=== PATIENT | female | born 1975 | race Caucasian/White ===

== ENCOUNTER 2023-12-26 13:35 | Emergency (ER) | payer OTHER, SELFPAY ==
[2023-12-26 13:41] VITALS: BP 113/49; PULSE 87; O2SAT 99; BMI 25.0
--- NOTE | 2023-12-26 13:46 | XR_ITS ---
The [address] [address] Patient Name: CONRAD GONZALEZ MRN: [id number] date: 1975 Sex: F Assigned Patient Location: ER Current Patient Location: ER Accession/Order Number: [id number] Exam Date: 12/26/2023 13:56 Report Date: 12/26/2023 14:12 At the request of: ALAN SANTANA Procedure: XR hand RT min 3V PROCEDURE: XR hand RT min 3V HISTORY: fall COMPARISON: None. FINDINGS: BONES:No fracture, acute abnormality, or significant arthropathy. SOFT TISSUES:No visible soft tissue swelling. EFFUSION:None visible. OTHER: Negative. XR/XR hand RT min 3V IMPRESSION: 1. No acute bone abnormality. Electronically authenticated by: VINCENT COPPOLA Date: 12/26/2023 14:12
--- NOTE | 2023-12-26 15:50 | ED_ITS ---
HPI HPI - Extremity Injury (Upper) General Chief Complaint: Extremity Injury, Upper Stated Complaint: UPPER EXTREMITY INJURY Time Seen by Provider: 12/26/23 15:23 Source: patient Mode of arrival: walk-in Limitations: no limitations History of Present Illness HPI narrative: 48-year-old female presents to the emergency department complaint of right hand pain. Patient states she injured her hand when she fell while carrying items on . States landed directly on the hand. States she felt a crack. Since then, has had pain that has been somewhat worsening. She has a wound to the hand, swelling, bruising. There is associated tenderness. Denies any other injury, motor or sensory changes, paresthesias. Patient is right-handed. Unsure of last tetanus shot. Quality:?Blunt trauma Severity:?Mild Timing:?As above, constant, worsening Context: Normal setting and activity? Modifying factors:?Pain worse with palpation, movement Associated symptoms: [] Related Data Previous Rx's ?Medication ?Instructions ?Recorded cephalexin 500 mg capsule 500 mg PO Q6H 10 days #40 caps 12/26/23 hydrocodone 5 mg-acetaminophen 325 1 tab PO Q8H PRN pain 3 days #7 12/26/23 mg tablet tabs Allergies Allergy/AdvReac Type Severity Reaction Status Date / Time amoxicillin AdvReac Unknown Verified 12/26/23 13:41 Penicillins AdvReac Unknown Verified 12/26/23 13:41 Opioid HPI Opioid Management Most Recent Pain and Opioid Data: No Data to Display Review of Systems ROS Narrative CONST: Denies activity change, weakness MS: +arthralgias, some leg.? Denies myalgias, gait problem SKIN: Denies color change, wound NEURO: Denies numbness, paresthesias, weakness Exam Narrative Exam Narrative: Vital signs noted Nurses notes reviewed CONST: Nontoxic, well appearing, well nourished, in no distress.? HENT: normocephalic, atraumatic. CV: 2+ palpable right radial pulse MS: Right hand: +tenderness, swelling, bruising, linear abrasion with some surrounding redness to the dorsum.? No tenderness to the fingers, wrist.? No crepitus, deformity, instability, warmth.? ROM full with flexion and extension.? Strength 5/5 NEURO: Sensory intact throughout and distal to the injury SKIN: + Abrasion to the dorsum of the right hand with some surrounding erythema. Intact, warm, dry.? PSYCHIATRIC: normal mood, affect Constitutional Vital Signs, click to edit/add: Last Vital Signs Pulse 87 12/26/23 13:41 Resp 16 12/26/23 13:41 BP 113/49 12/26/23 13:41 Pulse Ox 99 12/26/23 13:41 Course Vital Signs Vital signs: Vital Signs Pulse Rate 87 12/26/23 13:41 Respiratory Rate 16 12/26/23 13:41 Blood Pressure 113/49 12/26/23 13:41 Pulse Oximetry 99 12/26/23 13:41 Pulse Rate 87 12/26/23 13:41 Respiratory Rate 16 12/26/23 13:41 Blood Pressure 113/49 12/26/23 13:41 Pulse Oximetry 99 12/26/23 13:41 MDM - Extremity Injury (Upper) MDM Narrative Medical decision making narrative: This is a pleasant 48-year-old female presents to the emergency department with right hand injury. On arrival, afebrile, vital signs are stable. On exam, nontoxic, well-appearing patient in no distress. She has swelling, tenderness, bruising to the dorsum of her right hand. There is an abrasion with some mild erythema surrounding it in the middle of the swelling. Range of motion is full. MSPs otherwise intact. X-ray right hand imaging, per radiologist reveals no acute findings. Patient states that the pain has been worsening since original injury. This could cause a suspicion for wound infection developing. For this reason we will start her on antibiotics. She has been taking Tylenol at home without relief. We will give her prescription for limited supply of [place]. Bacitracin dressing, Jeffrey wrap placed to the hand. Patient's tetanus was updated Favor right hand contusion, wound infection Fracture, dislocation less likely based on imaging O[facility]RS reviewed Disposition ? The patient was discharged. Plan: Patient will be discharged to home. Condition at time of disposition: stable Prescription for limited supply of [place] and Keflex sent to her pharmacy. Advised to follow up with primary provider. Advised to return for any worsening and/or development of new, concerning signs or symptoms PLEASE NOTE: Portions of the medical record may have been produced using electronic psychiatry physician and may contain errors with respect to translation of words which may not have been identified prior to finalization of the chart. Medical Records Attestation: I reviewed the patient's medical records. Imaging Data Right hand x-ray: Radiologist's impression: ITS Impressions Hand X-Ray 12/26/23 13:46 IMPRESSION: 1. No acute bone abnormality. Electronically authenticated by: MAHENDRA COPPOLA Date: 12/26/2023 14:12 Discharge Plan Discharge Stand Alone Forms: Portal Instructions Chief Complaint: Extremity Injury, Upper Clinical Impression: Infected wound Contusion of hand, right Qualifiers: Encounter type: initial encounter Qualified Code(s): S60.221A - Contusion of right hand, initial encounter Patient Disposition: Home, Self-Care Time of Disposition Decision: 15:52 Condition: Good Mode of Transportation: Private Vehicle Prescriptions / Home Meds: New cephalexin 500 mg capsule 500 mg PO Q6H 10 Days Qty: 40 0RF hydrocodone-acetaminophen 5-325 mg tablet 1 tab PO Q8H PRN (Reason: pain) 3 Days Qty: 7 0RF Print Language: [place] Instructions: Wound Infection (ED), Contusion in Adults (ED), P.R.I.C.E. Treatment (ED) Referrals: Mahendra Monzon MD [Physician] - 1 week
[2023-12-26] MEDS: CEPHALEXIN 500 MG CAPSULE PO (16:44)
[2023-12-26] MEDS: ADACEL DIPH,PERTUSS(ACELL),TET VAC/PF 0.5 ML ADULT SYRINGE IM (16:44)
[2023-12-26] MEDS: BACITRACIN 0.9 GM PACKET 1 PACKET TOPICAL (16:48)
== END 2023-12-26 16:53 | disposition home or self-care (01) ==
PROVIDERS: Emergency Provider Emergency Medicine Emergency Medical Services
DX: S60.221A Contusion of right hand, initial encounter (principal); L08.9 Local infection of the skin and subcutaneous tissue, unspecified; W19.XXXA Unspecified fall, initial encounter; Z23 Encounter for immunization
CPT/HCPCS: 73130; 90471; 90715; 99284

== ENCOUNTER 2024-06-17 11:39 | Emergency (ER) | payer OTHER, SELFPAY ==
[2024-06-17 11:48] VITALS: BP 116/52; PULSE 67; TEMP 36.7; O2SAT 100; BMI 25.0
--- OUTSIDE RECORDS SUMMARY | 2024-06-17 11:52 | XMS_ITS | CCD ---
Author Organization [facility] Care Team Providers Care Network Operations Technician Name Role Phone SELF, SELF Unavailable Unavailable [facility] [place] [place] OTHER: Roxanna vailable Unavailable Edgar Jain Primary Care Provider Edgar Jain MD Primary Care Provider Edgar Jain MD Primary Care Provider [phone] KELLEN MONROY Admitting Unavailable KELLEN MONROY Attending Unavailable DR PRISCILA NONE LISTED Primary Care Unavaila KELLEN Mcdonald Consulting Unavailable DANIELITO KUO Consulting Unavailab Himanshu Easley Primary Care Physician [phone] Grecia Bullard Attending Unavailable Jamshid Andrade Attending Unavailable Rosalia OLMEDO Attending Unavailable Rosalia OLMEDO Attending Unavailable ELISA WREN Attending Unavailable PAWEL CABELLO Admitting Unavailable TYRA LUX Attending Unavailab ELISA Kaye Referring Unavailable DODIE AG Referring Unavailable JODI OWENS Referring Unavailable DI AMAYA Attending Unavailable JODI OWENS Referring Unavailable HENRI FUNK Attending Unavailable HENRI FUNK Referring Unavailable HENRI FUNK Admitting Unavailable CARMEN GARCIA Referring Unavailable DI AMAYA Attending Unavailable HENRI FUNK Attending Unavailable GINNYENHELISA BUCHANAN Referring Unavailable ELISA WREN Attending Unavailable Allergies Allergy Classification Reported Allergen(s) Allergy Type Date of Onset Reaction(s) Facility (6 sources) Amoxicillin; Translations: [amoxicillin] Drug Allergy 4 Hives, Urticaria (disorder) [facility], [place] (4 sources) Codeine; Translations: [CODEINE] Drug Allergy 1 Itching [place], [place] (3 sources) Penicillins; Translations: [PENICILLINS] Propensity to adverse reactions to drug 4 Hives [place], [place] (1 source) Penicillins Propensity to adverse reactions to drug 4 Hives [facility] Work Phone: (3 sources) Penicillin; Translations: [penicillin] Drug Allergy 3 Hives [facility] Repository (1 source) terbinafine; Translations: [TERBINAFINE] Drug Allergy 9 [facility] Repository Medications Current Medications Medication Drug Class(es) Dates Sig (Normalized) Sig (Original) buprenorphine 8 mg / naloxone 2 mg sublingual film (3 sources) Partial Opioid Agonist, Opioid Antagonist Start: 06-14-2014 SUBOXONE 8-2 MG FILM lidocaine hydrochloride 20 mg/ml mucous membrane topical solution (2 sources) Antiarrhythmic, Amide Local Anesthetic Start: 07-08-2022 lidocaine viscous hcl (XYLOCAINE) 2 % solution 15 mL Start: 07-08-2022 End: 07-08-2022 lidocaine PF 4 % injection 4 mL naloxone (NARCAN) 2 mg in sodium chloride 0.9 % 500 mL infusion (1 source) Start: 07-08-2022 naloxone (NARC AN) 2 mg in sodium chloride 0.9 % 500 mL infusion pantoprazole 40 mg delayed release oral tablet (3 sources) Proton Pump Inhibitor Start: 01-08-2015 take 1 tablet by mouth once daily pantoprazole (PROTONIX) 40 MG tablet Take 1 tablet by mouth daily To the patient: Please call to make an appointment. . Thank you. 30 tablet 1 01/08/2015 Active polyethylene glycol 3350 19163 mg powder for oral solution (3 sources) Osmotic Laxative take 17 g by mouth once daily polyethylene glycol (GLYCOLAX) powder Take 17 g by mouth daily. 0 Active Completed/Discontinued Medications Medication Drug Class(es) Dates Sig (Normalized) Sig (Original) iopamidol (ISOVUE-370) 76 % injection 80 mL (1 source) Start: 02-10-2020 End: 02-10-2020 iopamidol (ISOVUE-370) 76 % injection 80 mL 2 ml naloxone hydrochloride 1 mg/ml prefilled syringe (2 sources) Opioid Antagonist Start: 07-08-2022 End: 07-08-2022 naloxone (NARCAN) 2 MG/2ML injection Start: 07-08-2022 End: 07-08-2022 Naloxone HCl (NALOXONE OPIAT E OVERDOSE KIT) 1 each by Nasal route once for 1 dose 1 kit 0 07/08/2022 07/08/2022 Active 50 ml sodium chloride 9 mg/m l injection (1 source) Start: 07-08-2022 End: 07-08-2022 0.9 % sodium chloride bolus Problems Active Problems Problem Classification Problem Date Documented Da te Episodic/Chronic Abdominal pain (9 sources) Abdominal pain; Translations: [Unspecified abdominal pain] Onset: 04-06-2014 Resolved: 07-10-2014 07-10-2014 Episodic Anxiety disorders (6 sources) Anxiety; Translations: [Panic attack] Onset: 04-02-2014 04-06-2014 Chronic Delirium, dementia, and amnestic and other cognitive disorders (1 source) Postconcussion syndrome; Translations: [Postconcussional syndrome] Onset: 02-07-2023 Chronic Esophageal disorders (2 sources) Gastro-esophageal reflux disease without esophagitis; Translations: [Gastro-esophageal reflux disease without esophagitis] Onset: 02-29-2024 Chronic Gastroduodenal ulcer (except hemorrhage) (9 sources) Peptic ulcer with perforation; Translations: [Chronic or unspecified peptic ulcer, site unspecified, with perforation] Onset: 07-10-2014 07-10-2014 Chronic Gastrointestinal hemorrhage (1 source) Rectal hemorrhage; Translations: [Rectal bleeding] Episodic Other female genital disorders (4 sources) Abnormal uterine and vaginal bleeding, unspecified; Translations: [ABNORMAL UTERINE VAGINAL BLEED UNS] Onset: 12-06-2022 Chronic Poisoning by other medications and drugs (1 source) Overdose of opiate; Translations: [Poisoning by unspecified narcotics, accidental (unintentional), initial encounter] Episodic Skin and subcutaneous tissue infections (1 source) Cellulitis of left lower limb; Translations: [CELLULITIS OF LEFT LOWER LIMB] Onset: 12-07-2022 Episodic Skull and face fractures (1 source) Closed fracture of nasal bones; Translations: [Fracture of nasal bones, initial encounter for closed fracture] Onset: 02-07-2023 Episodic Substance-related disorders (3 sources) Opioid abuse; Translations: [Opioid abuse, uncomplicated] Onset: 04-06-2014 04-06-2014 Chronic Substance-related disorders (1 source) Opioid abuse; Translations: [Opioid use, unspecified, uncomplicated] Episodic Superficial injury; contusion (1 source) Contusion of left forearm; Translations: [Contusion of left forearm, initial encounter] Onset: 02-07-2023 Episodic Past or Other Problems Problem Classification Problem Date Documented Da te Episodic/Chronic Asthma (3 sources) Asthma; Translations: [Unspecified asthma, uncomplicated] Onset: 04-02-2014 Resolved: 04-02-2014 04-02-2014 Chronic Biliary tract disease (3 sources) Cholecystitis without calculus; Translations: [Cholecystitis, unspecified] Onset: 04-06-2014 04-06-2014 Episodic Deficiency and other anemia (3 sources) Anemia; Translations: [Anemia, unspecified] Onset: 04-07-2014 04-07-2014 Episodic Nonspecific chest pain (3 sources) Anterior chest wall pain; Translations: [Other chest pain] Onset: 04-02-2014 Resolved: 07-10-2014 07-10-2014 Episodic Other gastrointestinal disorders (2 sources) Diarrhea, unspecified; Translations: [Diarrhea, unspecified] Onset: 04-30-2023 Episodic Other lower respiratory disease (3 sources) Dyspnea; Translations: [Dyspnea, unspecified] Onset: 04-02-2014 Resolved: 07-10-2014 07-10-2014 Episodic Other upper respiratory infections (4 sources) Other acute sinusitis; Translations: [Acute upper respiratory infection, unspecified] Onset: 03-23-2023 Episodic Urinary tract infections (4 sources) Urinary tract infection, site not specified; Translations: [Acute cystitis without hematuria] Onset: 04-30-2023 Episodic Results Test Name Value Interpretation Reference Range Facility HISTOLOGY - TISSUE EXAMon LAB AP ASR DISCLAIMER The interpretation of this case included the use of immunohistochemistry or special stains. These tests have not been cleared or approved by the U.S. Food and Drug Administration. The FDA has determined that such clearance or approval is not necessary. These tests are used for clinical purposes and should not be regarded as investigational or for research. This laboratory is certified to perform high complexity testing under the Clinical Laboratory Improvement Amendments of 1998. [facility] Comment on above: Performed By: #### L [id number] ####[facility] [place] [address] LAB AP CASE REPORT Normal [facility] Comment on above: Result Comment: Surg ical Pathology Case: [id number] Authorizing Provider: Henri Funk MD Collected: 02/29/2024 1235 Ordering Location: [facility] Received: 02/29/2024 1324 [facility] Pathologist: Roberto Bradford MD Specimen: Gastric, Gastric bx r/o H-Pylori Performed By: #### L [id number] ####[facility] ([facility])[address] [place] [address] LAB AP CLINICAL INFORMATION Order Diagnoses [facility] Comment on above: Result Comment: Z01. 812 - Encounter for pre-operative laboratory testing [ICD-10-CM] K26.5 - Perforated duodenal ulcer (CMS/HCC) [ICD-10-CM] K27.9 - Peptic ulcer [ICD-10-CM] Performed By: #### L [id number] ####[facility] ([facility])[address] [place] [address] LAB AP GROSS DESCRIPTION A. Gastric. [facility] Comment on above: Result Comment: Rece ived in formalin labeled Conrad Gonzalez gastric biopsy rule out H. pylori are 3 pink-rodriguez soft tissue fragments measuring 0.5 x 0.5 x 0.2 cm in aggregate. The specimen is submitted in toto 1 cassette. Carin Voss M.D., PGY-1 Performed By: #### L [id number] ####[facility] ([facility] [place] [address] LAB AP MICROSCOPIC DESCRIPTION Microscopic examination performed. [facility] Comment on above: Performed By: #### L [id number] ####[facility] ([facility])[address] [place] [address] LAB AP REPORT FINAL DIAGNOSIS NARRATIVE [facility] Comment on above: Result Comment: Stom ach, biopsy: Gastric mucosa with mild chronic inflammation without activity. No Helicobacter pylori identified, immunohistochemical stain with controls. No intestinal metaplasia, dysplasia or malignancy identified. Performed By: #### L [id number] ####[facility] ([facility])[address] [place] [address] HPon 02-29-2024 HP H&P reviewed. The patient was examined and there are no changes to the H&P. Normal [facility] NURSNOTEon 02-29-2024 NURSNOTE Follow up at [facility] with Gricelda Anna CNP, for biopsy results in 2-4 weeks. *Need to have a Gastric Emptying Study. May resume a Regular Diet [see handout for 'Food Choices for Reflux Disease']. May resume home medications. Normal [facility] NURSNOTE EGD Findings: Inlet Patch [facility] POCT GLUCOSE METER UNSOLICIT ED RESULTSon 02-29-2024 Glucose [Mass/Vol] 98 mg/dL Normal 70-105 [facility] Comment on above: Order Comment: Waive d Testing in the ED is performed under the ED CLIA certificate #[id number]. Result Comment: acle ment Performed By: #### L [id number] ####[facility] ([facility])[address] [place] [address] Prep for Procedureon 024 Prep for Procedure [id number] Joi Gonzalez 1975 F Date Provider Department Center 02/24/2024 HENRI JARAMILLO [facility] GISC GEORGEI No family history on file Normal [facility] Follow-Upon 02-20-2024 Follow-Up [id number] Joi Gonzalez 1975 F Date Provider Department Center 02/20/2024 HENRI JARAMILLO [facility] No family history on file Level of Service:41790 MD OFFICE/OUTPATIENT ESTABLISHED MOD MDM 30 MIN (GC) Reason for Visit and Comments: Hospital Follow-up [832] Gastroparesis [580] - Dysmotility Normal [facility] HPon 02-20-2024 HP -- Attestation signed by Henri Funk MD at 02/20/2024 1:45 PM GC: I saw this patient. I personally performed the critical/navarro portions that determines the level of service. I was directly involved in the management and treatment plan of the patient. I reviewed fellow Keeley Byers 's note and agree with the documentation [facility] Gastroenterology Follow-Up Patient Visit CHIEF COMPLAINT Chief Complaint Patient presents with Hospital Follow-up Gastroparesis Dysmotility HISTORY OF PRESENT ILLNESS: A 49-year-old female with a medical history of lupus and multiple abdominal surgeries presented with complaints of abdominal pain. She recently visited the ER at [facility] due to ongoing symptoms of vomiting, diarrhea, and blood in her stool, which have been present for two weeks. She expressed concern that her symptoms might be due to a previous perforated ulcer, as the pain feels similar. She is currently taking Protonix twice a day and describes the abdominal pain as a burning sensation. She also recently tested positive for COVID-19 and reportedthat the blood in her stool is occasionally bright red but sometimes dark. Her surgical history includes treatment for a perforated peptic ulcer witha Jaleel patch, followed by Billroth II and Claudia-en-Y procedures. Today, she complained of worsening acid reflux, which exacerbates her COVID-related sore throat, along with abdominal pain and intermittent episodes of melena and bright red blood per rectum. We discussed the necessity of scheduling an EGD as soon as possible to evaluate her symptoms further. She was advised to seek emergency care if symptoms persist and to start taking omeprazole 20 mg twice daily, in addition to continuing sucralfate. The EGD order will be placed, and we will follow up with the patient after the procedure. PREVIOUS LABS/IMAGING/ENDOSCOPY : Colonoscopy was performed which revealed: Normal distal terminal ileum Diminutive ascending colon polyp removed using a cold snare No endoscopic evidence of colitis. Random biopsies obtained to rule out microscopic colitis. EGD 05/02/2023: The gastroscope was inserted into the mouth and advanced under direct vision to second portion of the duodenum. A careful inspection was made as the gastroscope was withdrawn, including a retroflexed view of the proximal stomach; findings and interventions are described below. Appropriate photodocumentation was obtained. CT abdomen pelvis with out contrast 05/01/2023: *No acute abdominopelvic process. *Eccentric filling defect in the distal portal vein which extends distally into the superior mesenteric vein, morphology suggestive of chronic venous thrombus versus mixing of noncontrast blood with contrast filled in portal vein. EGD 2018 with mild ulceration and narrowing at the gastrojejunal anastomosis S/P 15 mm balloon dilation with balloon. 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 SOCIAL HISTORY: Social History Tobacco Use Smoking status: Never Smokeless tobacco: Never Vaping Use Vaping Use: Never used Substance Use Topics Alcohol use: Never Drug use: Never ALLERGIES: Amoxicillin, Codeine, Terbinafine, and Penicillins Current Medications: Current Outpatient Medications: albuterol 90 mcg/actuation inhaler, , Disp: , Rfl: clonazePAM (KlonoPIN) 1 mg tablet, Take 1 mg by mouth in the morning, at noon, and at bedtime., Disp: , Rfl: etonogestrel-eluting contraceptive (Nexplanon) 68 mg contraceptive implant, Inject 68 mg under the skin., Disp: , Rfl: folic acid (Folvite) 1 mg tablet, , Disp: , Rfl: HYDROcodone-acetaminop hen (Hoquiam) 5-325 mg tablet, , Disp: , Rfl: hydroxychloroquine (Plaquenil) 200 mg tablet, Take 200 mg (more content not included)... Normal [facility] BASIC METABOLIC PANELon 01-22 Anion gap [Moles/Vol] 9 mmol/L Normal 7-20 [facility] Comment on above: Performed By: #### L [id number] #### [facility] ([facility]) [address] [place] [address] Calcium [Mass/Vol] 9.0 mg/dL Normal 8.6-10.3 [facility] Comment on above: Performed By: #### L [id number] #### [facility] ([facility]) [address] [place] [address] Chloride [Moles/Vol] 107 mmol/L Normal 98-107 [facility] Comment on above: Performed By: #### L [id number] #### [facility] ([facility]) [address] [place] [address] CO2 [Moles/Vol] 26 mmol/L Normal 21-31 [facility] Comment on above: Performed By: #### L [id number] #### [facility] ([facility]) [address] [place] [address] Creatinine [Mass/Vol] 1.30 mg/dL High 0.60-1.20 [facility] Comment on above: Performed By: #### L [id number] #### [facility] ([facility]) [address] [place] [address] GLOMERULAR FILTRATION RATE ML/MIN/1.73 SQ M.PREDICTED 51.0 mL/min/1.73m*2 Low >60.0 [facility] Comment on above: Result Comment: The [facility]???s estimated glomerular filtration rate (eGFR) will no longer include consideration of race in its calculation. The National Kidney Foundation???s eGFR Task Force developed new recommendations for the estimation of the glomerular filtration rate in the [place] They recommend immediate implementation of the new equation refit without the race variable in all laboratories because the calculation does not include race. In addition to not including race in the calculation and reporting, it included diversity in its development, and has acceptable performance characteristics and potential consequences that do not disproportionately affect any one group of individuals. Performed By: #### L [id number] #### [facility] ([facility]) [address] [place] [address] Glucose [Mass/Vol] 82 mg/dL Normal 70-100 [facility] Comment on above: Performed By: #### L [id number] #### [facility] ([facility]) [address] [place] [address] Potassium [Moles/Vol] 3.4 mmol/L Low 3.5-5.1 [facility] Comment on above: Performed By: #### L [id number] #### [facility] ([facility]) [address] [place] [address] Sodium [Moles/Vol] 139 mmol/L Normal 136-145 [facility] Comment on above: Performed By: #### L [id number] #### [facility]) [address] [place] [address] Urea nitrogen [Mass/Vol] 11 mg/dL Normal 7-25 [facility] Comment on above: Performed By: #### L [id number] #### [facility] [address] [place] [address] UREA NITROGEN/CREATININE (MASS RATIO) IN SER/PLAS 8.5 Normal [facility] Comment on above: Performed By: #### L [id number] #### [facility] [address] [place] [address] CBC WITH AUTO DIFFERENTIALon 02-09-2024 Basophils (Bld) [#/Vol] 0.05 10*3/uL Normal 0.00-0.20 [facility] Comment on above: Performed By: #### L [id number] ####[facility] ([facility])[address] [place] [address] Basophils/100 WBC (Bld) 1.0 % Normal 0.0-1.0 [facility] Comment on above: Performed By: #### L [id number] ####[facility] ([facility])[address] [place] [address] Eosinophils (Bld) [#/Vol] 0.07 10*3/uL Normal 0.00-0.50 [facility] Comment on above: Performed By: #### L [id number] ####[facility] [place] [address] Eosinophils/100 WBC (Bld) 1.4 % Normal 0.0-6.0 [facility] Comment on above: Performed By: #### L [id number] ####[facility] [place] [address] Erythrocyte distribution width (RBC) [Ratio] 13.6 % Normal 11.5-15.0 [facility] Comment on above: Performed By: #### L [id number] ####[facility] ([facility] [place] [address] ERYTHROCYTE MEAN CORPUSCULAR HEMOGLOBIN CONCENTRATION (G/DL) BY AUTOMATED 32.3 g/dL Normal 32.0-35.0 [facility] Comment on above: Performed By: #### L [id number] ####[facility] ([facility])[address] [place] [address] Hematocrit (Bld) [Volume fraction] 39.0 % Normal 36.0-48.0 [facility] Comment on above: Performed By: #### L [id number] ####[facility] ([facility])[address] [place] [address] Hemoglobin (Bld) [Mass/Vol] 12.6 g/dL Normal 12.0-15.0 [facility] Comment on above: Performed By: #### L [id number] ####[facility] ([facility])[address] [place] [address] Immature granulocytes (Bld) [#/Vol] 0.02 10*3/uL Normal 0.00-0.20 [facility] Comment on above: Performed By: #### L [id number] ####[facility] ([facility])[address] [place] [address] Immature granulocytes/100 WBC (Bld) 0.4 % Normal 0.0-1.0 [facility] Comment on above: Performed By: #### L [id number] ####[facility] [place] [address] Lymphocytes (Bld) [#/Vol] 1.28 10*3/uL Normal 1.20-4.00 [facility] Comment on above: Performed By: #### L [id number] ####[facility] ([facility])[address] [place] [address] Lymphocytes/100 WBC (Bld) 24.9 % Normal 20.0-45.0 [facility] Comment on above: Performed By: #### L [id number] ####[facility] ([facility])[address] [place] [address] MCH (RBC) [Entitic mass] 27.6 pg Normal 27.0-33.0 [facility] Comment on above: Performed By: #### L [id number] ####[facility] ([facility])[address] [place] [address] MCV (RBC) [Entitic vol] 85.3 fL Normal 82.0-98.0 [facility] Comment on above: Performed By: #### L [id number] ####[facility] ([facility])[address] [place] [address] Monocytes (Bld) [#/Vol] 0.45 10*3/uL Normal 0.10-1.00 [facility] Comment on above: Performed By: #### L [id number] ####[facility] ([facility])[address] [place] [address] Monocytes/100 WBC (Bld) 8.7 % Normal 5.0-12.0 [facility] Comment on above: Performed By: #### L [id number] ####[facility] ([facility])[address] [place] [address] Neutrophils (Bld) [#/Vol] 3.28 10*3/uL Normal 1.60-7.60 [facility] Comment on above: Performed By: #### L [id number] ####[facility] ([facility])[address] [place] [address] Neutrophils/100 WBC (Bld) 63.6 % Normal 40.0-72.0 [facility] Comment on above: Performed By: #### L [id number] ####[facility] ([facility])[address] [place] [address] NRBC (PER 100 WBCS) BY AUTOMATED COUNT 0.0 % Normal 0 [facility] Comment on above: Performed By: #### L [id number] ####[facility] ([facility])[address] [place] [address] PLATELETS (10*3/UL) IN BLOOD AUTOMATED COUNT 321 10*3/uL Normal 150-400 [facility] Comment on above: Performed By: #### L [id number] ####[facility] ([facility])[address] [place] [address] RBC (Bld) [#/Vol] 4.57 10*6/uL Normal 3.80-5.00 [facility] Comment on above: Performed By: #### L [id number] ####[facility] ([facility])[address] [place] [address] WBC (Bld) [#/Vol] 5.15 10*3/uL Normal 4.00-10.60 [facility] Comment on above: Performed By: #### L [id number] ####[facility] ([facility])[address] [place] [address] CT ABDOMEN PELVIS W IV CONTR Shanda 02-09-2024 CT ABDOMEN PELVIS W IV CONTRAST STUDY: ABDOMEN AND PELVIS CT WITH CONTRAST CLINICAL HISTORY: Acute abdominal pain nausea and vomiting. r/o bowel perforation. COMPARISON: 05/02/2023 TECHNIQUE: CT abdomen and pelvis was performed utilizing 5 mm axial reconstructions following the uneventful administration of 100 cc Omnipaque 300 nonionic intravenous contrast. Coronal and sagittal reformatted images as well as delayed excretory phase images were obtained and reviewed. Automated exposure control was utilized. FINDINGS: Abdomen: No pleural or pericardial effusion at the lung bases. No lower lung consolidation. The liver, adrenal glands, pancreas appear unremarkable. The gallbladder is absent. Mild prominence of the common bile is most likely with the postcholecystectomy status. No enlarged mesenteric or retroperitoneal lymph nodes. Small bowel is nondilated. No renal collecting system dilatation. Pelvis: No free pelvic fluid. No enlarged pelvic lymph nodes. Uterus is present. Generative bladder is grossly unremarkable. Small right ovarian cystic lesion measuring 2.5 cm requires no additional follow-up imaging in a reproductive age female. Degenerative changes of the thoracolumbar spine. No vertebral body height loss. IMPRESSION: 1. No definitive acute abdominal or pelvic process. All CT scans at this facility use dose modulation, iterative reconstruction, and/or weight based dosing when appropriate to reduce radiation dose to as low as reasonably achievable. Electronically signed: Edgar Butler. Normal [facility] EDNURSon 02-09-2024 EDNURS Pt ambulates to [facility] with slow, steady gait. Presents anxious, pale and ill appearing states having an ulcer disorder requiring multiple surgical repairs, including being sent to [facility] for a jaleel patch (pt lived in [place] at the time). Pt states not having a duodenum and that her stomach is on the other side. Pt thinks she probably has another ulcer as she is also having bright red blood in her stool. PMH also includes Lupus and recently tested positive for Covid. Covid Positive in triage. Normal [facility] EDPROVon 02-09-2024 EDPROV [facility] [id number] EMERGENCY DEPARTMENT ENCOUNTER CHIEF COMPLAINT Chief Complaint Patient presents with Abdominal Pain Extensive abdominal surgical history Rectal Bleeding Weakness, Gen Covid Positive HISTORY OF PRESENT ILLNESS Conrad Gonzalez is a 49 y.o. female who presents with a Chief Complaint Patient presents with Abdominal Pain Extensive abdominal surgical history Rectal Bleeding Weakness, Gen Covid Positive The patient is a 49-year-old female with history of lupus and multiple abdominal surgeries who is complaining of abdominal pain. Patient states that she also was having vomiting, diarrhea, blood in stool. Patient states that symptoms have been present for 2 weeks. Patient states that she has had perforated ulcer in the past, and is concerned that this might be the cause of her symptoms as it feels similar. Patient states she does take Protonix twice a day. Patient describes the abdominal pain as a burning sensation. Patient states that she also recently tested positive for COVID. Patient states that the blood in stool is occasionally bright red but also sometimes dark. Patient states that she still has an appendix, but has had a cholecystectomy in the past. REVIEW OF SYSTEMS Review of Systems Constitutional: Negative for chills and fever. Eyes: Negative for pain and visual disturbance. Cardiovascular: Negative for chest pain and palpitations. Gastrointestinal: Positive for abdominal pain, blood in stool, diarrhea, nausea and vomiting. Negative for constipation. Genitourinary: Negative for dysuria and hematuria. Musculoskeletal: Negative for arthralgias and back pain. Skin: Negative for color change and rash. Neurological: Negative for syncope and light-headedness. Psychiatric/Behavioral : Negative for behavioral problems. The patient is not nervous/anxious. All other systems reviewed and are negative. PAST MEDICAL HISTORY has a past medical history of Gastric ulcer and Lupus (CMS/HCC). SURGICAL HISTORY has a past surgical history that includes Abdominal surgery. CURRENT MEDICATIONS Discharge Medication List as of 02/09/2024 11:56 PM CONTINUE these medications which have NOT CHANGED Details clonazePAM (KlonoPIN) 1 mg tablet Take 1 mg by mouth in the morning, at noon, and at bedtime., Historical Med etonogestrel-eluting contraceptive (Nexplanon) 68 mg contraceptive implant Inject 68 mg under the skin., Historical Med folic acid (Folvite) 1 mg tablet Starting Tue07/27/2022, Historical Med !! hydroxychloroquine (Plaquenil) 200 mg tablet Take 200 mg by mouth in the morning., Historical Med !! hydroxychloroquine (Plaquenil) 200 mg tablet Take 100 mg by mouth in the evening., Historical Med hydrOXYzine HCL (Atarax) 50 mg tablet Take 50 mg by mouth in the morning and at bedtime., Historical Med hydrOXYzine pamoate (Vistaril) 50 mg capsule Starting Tue08/04/2022, Historical Med omeprazole (PriLOSEC) [address] capsule Take 2 capsules (40 mg) by mouth before breakfast. Do not crush or chew., Starting Tue06/06/2023, Until Tue07/06/2023, Normal permethrin (Elimite) 5 % cream APPLY FROM HEAD TO TOE AND LEAVE ON FOR 12-14 HOURS DIRECTED, Historical Med pilocarpine (Salagen) 5 mg tablet Take 5 mg by mouth in the morning and at bedtime., Historical Med promethazine (Phenergan) 12.5 mg tablet Take 12.5 mg by mouth if needed in the morning and at bedtime for nausea or vomiting., Historical Med SUMAtriptan (Imitrex) 50 mg tablet Take 50 mg by mouth 1 (one) time if needed for migraine. May repeat dose once in 2 hours if no relief. Do not exceed 2 doses in 24 hours., Historical Med !! - Potential duplicate medications found. Please discuss with provider. ALLERGIES is allergic to amoxicillin, codeine, terbinafine, and penicillins. FAMILY HISTORY has no family status information on file. family history is not on file. SOCIAL HISTORY reports that she has never smoked. She has never used smokeless tobacco. She reports that she does not drink alcohol and does not use drugs. PHYSICIAL EXAM INITIAL VITALS: height is 1.676 m (5' 6 ) and weight is 70.3 kg (155 lb). Her oral temperature is 37 ???C (98.6 ???F). Her blood pressure is 103/62 and her pulse is 85. Her respiration is 20 and oxygen saturation is 99%. Physical Exam Vitals and nursing note reviewed. Constitutional: General: She is not in acute distress. Appearance: She is well-developed. HENT: Head: Normocephalic and atraumatic. Nose: Nose normal. Mouth/Throat: Mouth: Mucous membranes are dry. Eyes: Extraocular Movements: Extraocular movements intact. Conjunctiva/sclera: Conjunctivae normal. Pupils: Pupils are equal, round, and reactive to light. Cardiovascular: Rate and Rhythm: Normal rate and regular rhythm. Heart sounds: No murmur heard. Pulmonary: Effort: (more content not included)... Normal [facility] HEPATIC FUNCTION PANELon Albumin [Mass/Vol] 4.5 g/dL Normal 3.5-5.7 [facility] Comment on above: Performed By: #### L [id number] #### [facility] ([facility]) [address] [place] [address] ALP [Catalytic activity/Vol] 45 U/L Normal 34-104 [facility] Comment on above: Performed By: #### L [id number] #### [facility] ([facility]) [address] [place] [address] ALT [Catalytic activity/Vol] 14 U/L Normal 7-52 [facility] Comment on above: Performed By: #### L [id number] #### [facility] ([facility]) [address] [place] [address] AST [Catalytic activity/Vol] 25 U/L Normal 13-39 [facility] Comment on above: Performed By: #### L [id number] #### [facility] [address] [place] [address] Bilirubin [Mass/Vol] 0.3 mg/dL Normal 0.3-1.0 [facility] Comment on above: Performed By: #### L [id number] #### [facility] ([facility]) [address] [place] [address] Magnesium [Mass/Vol] 0.1 mg/dL Normal 0-0.2 [facility] Comment on above: Performed By: #### L [id number] #### [facility] ([facility] [place] [facility]) [address] [place] [address] Protein [Mass/Vol] 7.2 g/dL Normal 6.0-8.3 [facility] Comment on above: Performed By: #### L [id number] #### [facility] ([facility] [place] [facility]) [address] [place] [address] LACTIC ACID WITH 4 HOUR REFL EXon 02-09-2024 LACTATE (MMOL/L) IN SER/PLAS 1.1 mmol/L Normal 0.5-2.2 [facility] Comment on above: Performed By: #### L [id number] ####[facility] ([facility] [place] [facility])[address] [place] [address] LIPASEon 02-09-2024 LIPASE (U/L) IN SER/PLAS 61 U/L Normal 11-82 [facility] Comment on above: Performed By: #### L [id number] #### [facility] ([facility] [place] [facility]) [address] [place] [address] TROPONIN Ion 02-09-2024 Troponin I.cardiac [Mass/Vol] 0.00 ng/mL Normal 0.00-0.04 [facility] Comment on above: Performed By: #### L [id number] #### [facility] ([facility] [place] [facility]) [address] [place] [address] URINALYSIS WITH REFLEX CULTU REon 02-09-2024 BILIRUBIN, TOTAL PRESENCE IN URINE Negative Normal Negative [facility] Comment on above: Order Comment: Micro scopics not performed on urines with negative chemical reactions unless requested on original order. Performed By: #### L [id number] ####[facility] ([facility] [place] [facility])[address] [place] [address] Clarity (U) Clear Normal Clear [facility] Comment on above: Order Comment: Micro scopics not performed on urines with negative chemical reactions unless requested on original order. Performed By: #### L [id number] ####[facility] ([facility] [place] [facility])[address] [place] [address] Color (U) Yellow Normal Yellow [facility] Comment on above: Order Comment: Micro scopics not performed on urines with negative chemical reactions unless requested on original order. Performed By: #### L [id number] ####[facility] ([facility] [place] [facility])[address] [facility] [address] Glucose (U) [Mass/Vol] Negative Normal Negative [facility] Comment on above: Order Comment: Micro scopics not performed on urines with negative chemical reactions unless requested on original order. Performed By: #### L [id number] ####[facility] ([facility] [place] [facility])[address] [facility] [place] [address] HEMOGLOBIN PRESENCE IN URINE Negative Normal Negative [facility] Comment on above: Order Comment: Micro scopics not performed on urines with negative chemical reactions unless requested on original order. Performed By: #### L [id number] ####[facility] ([facility] [place] [facility])[address] [place] [address] Ketones Ql (U) Negative Normal Negative [facility] Comment on above: Order Comment: Micro scopics not performed on urines with negative chemical reactions unless requested on original order. Performed By: #### L [id number] ####[facility] ([facility] [place] [facility])[address] [facility] [address] LEUKOCYTE ESTERASE PRESENCE IN URINE BY TEST STRIP Negative Normal Negative [facility] Comment on above: Order Comment: Micro scopics not performed on urines with negative chemical reactions unless requested on original order. Performed By: #### L [id number] ####[facility] ([facility] [place] [facility])[address] [facility] [address] NITRITE PRESENCE IN URINE Negative Normal Negative [facility] Comment on above: Order Comment: Micro scopics not performed on urines with negative chemical reactions unless requested on original order. Performed By: #### L [id number] ####[facility] ([facility] [place] [facility])[address] [facility] [address] pH (U) 6.0 [pH] Normal 5.0-8.0 [facility] Comment on above: Order Comment: Micro scopics not performed on urines with negative chemical reactions unless requested on original order. Performed By: #### L [id number] ####[facility] ([facility])[address] [place] [address] Protein (U) [Mass/Vol] Negative Normal Negative [facility] Comment on above: Order Comment: Micro scopics not performed on urines with negative chemical reactions unless requested on original order. Performed By: #### L [id number] ####[facility] ([facility])[address] [place] [address] Specific gravity (U) [Rel density] 1.010 Low 1.015-1.020 [facility] Comment on above: Order Comment: Micro scopics not performed on urines with negative chemical reactions unless requested on original order. Performed By: #### L [id number] ####[facility] ([facility])[address] [place] [address] Provider Letteron 11-11-2023 Provider Letter November 11, 2023 CONRAD GONZALEZ [address] [place] [id number] : 1975 Dear Conrad Gonzalez , We have been trying to reach you with no success. It is important that you return our call upon receiving this letter. Also, at the time of your call, please provide us with your current information. Thank you for your prompt attention to this matter. Sincerely, [facility] [address] [place] [address], [place] [address] [facility] HPon 06-06-2023 -- Attestation signed by Di Amaya MD at 06/06/2023 10:30 AM I saw and evaluated the patient. I reviewed the resident's/fellow's note and agree with the findings and plan documents in the resident's/fellow's note Gastroenterology History and Physical Note IDENTIFYING DATA PATIENT: Conrad Gonzalez HISTORY OF PRESENT ILLNESS Conrad Gonzalez is a 48 y.o. female with history of 25 mg melena with gastrojejunostomy. Patient had an EGD on 05/02/2023 that showed clean-based anastomotic ulcer. Patient is here for repeat EGD to assess for healing. PAST MEDICAL, SURGICAL, FAMILY, and SOCIAL HISTORY Past Medical History: Past Medical History: Diagnosis Date Gastric ulcer Lupus (CMS/HCC) Past Surgical History: Past Surgical History: Procedure Laterality Date ABDOMINAL SURGERY Family History: No family history on file. Social History: Social History Tobacco Use Smoking status: Never Smokeless tobacco: Never Vaping Use Vaping Use: Never used Substance Use Topics Alcohol use: Never Drug use: Never Allergies: Allergies Allergen Reactions Amoxicillin Penicillins Hives Home Medications: Prior to Admission medications Medication Sig Start Date End Date Taking? Authorizing Provider clonazePAM (KlonoPIN) 1 mg tablet Take 1 mg by mouth in the morning, at noon, and at bedtime. Yes Historical Provider, hydroxychloroquine (Plaquenil) 200 mg tablet Take 200 mg by mouth in the morning. Yes Historical Provider, hydroxychloroquine (Plaquenil) 200 mg tablet Take 100 mg by mouth in the evening. Yes Historical Provider, hydrOXYzine HCL (Atarax) 50 mg tablet Take 50 mg by mouth in the morning and at bedtime. Yes Historical Provider, pantoprazole (ProtoNix) 40 mg EC tablet Take 1 tablet (40 mg) by mouth before breakfast and before evening meal. Do not crush, chew, or split. 05/03/23 06/28/23 Yes KATRINA Rendon pilocarpine (Salagen) 5 mg tablet Take 5 mg by mouth in the morning and at bedtime. Yes Historical Provider, promethazine (Phenergan) 12.5 mg tablet Take 12.5 mg by mouth if needed in the morning and at bedtime for nausea or vomiting. Yes Historical Provider, sucralfate (Carafate) 100 mg/mL suspension Take 10 mL (1 g) by mouth every 6 (six) hours. 05/03/23 06/28/23 Yes KATRINA Rendon SUMAtriptan (Imitrex) 50 mg tablet Take 50 mg by mouth 1 (one) time if needed for migraine. May repeat dose once in 2 hours if no relief. Do not exceed 2 doses in 24 hours. Yes Historical Provider, REVIEW OF SYSTEMS See HPI, otherwise ROS negative as below Review of Systems Constitutional: Negative. Respiratory: Negative. Cardiovascular: Negative. Genitourinary: Negative. Skin: Negative. OBJECTIVE DATA Vitals: There were no vitals taken for this visit. Physical Exam HENT: Head: Normocephalic and atraumatic. Eyes: Pupils: Pupils are equal, round, and reactive to light. Cardiovascular: Rate and Rhythm: Normal rate and regular rhythm. Pulmonary: Effort: Pulmonary effort is normal. Breath sounds: Normal breath sounds. Abdominal: General: There is no distension. Palpations: Abdomen is soft. Tenderness: There is no abdominal tenderness. Skin: General: Skin is warm and dry. Neurological: Mental Status: She is alert. Mental status is at baseline. LABS CBC: No results found for: WBC, RBC, HGB, HCT, MCV, RDW, PLT PT/INR No results found for: PT, INR BMP: No results found for: NA, K, CL, BUN, CREATININE, EGFR, GLU LFTs: No results found for: BILITOT, BILIDIR, ALKPHOS, GGT, AST, ALT, ALBUMIN, PROT B12/Folate/Iron studies: No results found for: [id number], FOLATE, IRON, TIBC, UIBC, IRONSAT, FERRITIN ASSESSMENT AND PLAN Conrad Gonzalez is a 48 y.o. female with history of 25 mg melena with gastrojejunostomy. Patient had an EGD on 05/02/2023 that showed clean-based anastomotic ulcer. Patient is here for repeat EGD to assess for healing. Plan: EGD [facility] POCT GLUCOSE METER UNSOLICIT ED RESULTSon 06-06-2023 Glucose [Mass/Vol] 93 mg/dL Normal 70-105 [facility] Comment on above: Order Comment: Re PT T-LA wrong order Result Comment: jenc [email or web address] Performed By: #### L [id number] #### [facility] ([facility]) [address] [place] [address] 30on 05-03-2023 30 Problem: Neurosensor y - Adult Goal: Achieves stable or improved neurological status Outcome: Progressing Flowsheets (Taken 05/03/2023854) Achieves stable or improved neurological status: Assess for and report changes in neurological status Maintain blood pressure and fluid volume within ordered parameters to optimize cerebral perfusion and minimize risk of hemorrhage Problem: Respiratory - Adult Goal: Achieves optimal ventilation and oxygenation Outcome: Progressing Flowsheets (Taken 05/03/2023854) Achieves optimal ventilation and oxygenation: Assess for changes in respiratory status Assess for changes in mentation and behavior Position to facilitate oxygenation and minimize respiratory effort Problem: Cardiovascular - Adult Goal: Maintains optimal cardiac output and hemodynamic stability Outcome: Progressing Flowsheets (Taken 05/03/2023854) Maintains optimal cardiac output and hemodynamic stability: Monitor blood pressure and heart rate Monitor urine output and notify Licensed Independent Practitioner for values outside of normal range Assess for signs of decreased cardiac output Problem: Skin/Tissue Integrity - Adult Goal: Skin integrity remains intact Outcome: Progressing Flowsheets (Taken 05/03/2023854) Skin integrity remains intact: Monitor for areas of redness and/or skin breakdown Change oxygen saturation probe site as needed Problem: Musculoskeletal - Adult Goal: Return mobility to safest level of function Outcome: Progressing Flowsheets (Taken 05/03/2023854) Return mobility to safest level of function: Assess patient stability and activity tolerance for standing, transferring and ambulating with or without assistive devices Assist with transfers and ambulation using safe patient handling equipment as needed Ensure adequate protection for wounds/incisions during mobilization Obtain physical therapy/occupational therapy consults as needed Apply continuous passive motion per provider or physical therapy orders to increase flexion toward goal Instruct patient/family in ordered activity level Problem: Gastrointestinal - Adult Goal: Maintains or returns to baseline bowel function Outcome: Progressing Flowsheets (Taken 05/03/2023854) Maintains or returns to baseline bowel function: Assess bowel function Encourage oral fluids to ensure adequate hydration Problem: Genitourinary - Adult Goal: Absence of urinary retention Outcome: Progressing Flowsheets (Taken 05/03/2023854) Absence of urinary retention: Monitor intake/output and perform bladder scan as needed Assess patient???s ability to void and empty bladder Problem: Infection - Adult Goal: Absence of infection at discharge Outcome: Progressing Flowsheets (Taken 05/03/2023854) Absence of infection at discharge: Assess and monitor for signs and symptoms of infection Monitor lab/diagnostic results Problem: Metabolic/Fluid and Electrolytes - Adult Goal: Electrolytes maintained within normal limits Outcome: Progressing Flowsheets (Taken 05/03/2023854) Electrolytes maintained within normal limits: Monitor labs and assess patient for signs and symptoms of electrolyte imbalances Administer electrolyte replacement as ordered Monitor response to electrolyte replacements, including repeat lab results as appropriate Problem: Hematologic - Adult Goal: Maintains hematologic stability Outcome: Progressing Flowsheets (Taken 05/03/2023854) Maintains hematologic stability: Assess for signs and symptoms of bleeding or hemorrhage Monitor labs for bleeding or clotting disorders Administer blood products/factors as ordered Problem: Pain - Adult Goal: Verbalizes/displays adequate comfort level or baseline comfort level Outcome: Progressing Flowsheets (Taken 05/03/2023944) Verbalizes/displays adequate comfort level or baseline comfort level: Encourage patient to monitor pain and request assistance Assess pain using appropriate pain scale Administer analgesics based on type and severity of pain and evaluate response Implement non-pharmacological measures as appropriate and evaluate response Consider cultural and social influences on pain and pain management Notify Licensed Independent Practitioner if interventions unsuccessful or patient reports new pain Problem: Safety - Adult Goal: Free from fall injury Outcome: Progressing Flowsheets (Taken 05/03/2023854) Free from fall injury: Assess patient frequently for physical needs Educate patient/family on patient safety, including physical limitations [place] fall precautions as indicated by assessment Identify cognitive and physical deficits and behaviors that affect risk of falls Instruct patient to call for assistance with activity based on assessment Problem: Discharge Planning Goal: Discharge to home or other facility with appropriate resources Outcome: Progressing Flowsheets (Taken 10 (more content not included)... [facility] ANTI-XA (HEPARIN LEVEL)on HEPARIN UNFRACTIONATED (U/ML) IN PPP BY CHROMOGENIC METHOD 0.61 IU/mL Normal 0.3-0.7 [facility] Comment on above: Result Comment: [place] roxaban and Apixaban will interfere with the anti Xa assay used to monitor UFH and LMWH. Performed By: #### L [id number] #### [facility] ([facility]) [address] [place] [address] BASIC METABOLIC PANELon 10- Anion gap [Moles/Vol] 9 mmol/L Normal 7-20 [facility] Comment on above: Performed By: #### L [id number] #### [facility] [address] [place] [address] Calcium [Mass/Vol] 8.8 mg/dL Normal 8.6-10.3 [facility] Comment on above: Performed By: #### L [id number] #### [facility] [address] [place] [address] Chloride [Moles/Vol] 105 mmol/L Normal 98-107 [facility] Comment on above: Performed By: #### L [id number] #### [facility] ([facility] [place] [facility]) [address] [place] [address] CO2 [Moles/Vol] 25 mmol/L Normal 21-31 [facility] Comment on above: Performed By: #### L [id number] #### [facility] ([facility] [place] [facility]) [address] [place] [address] Creatinine [Mass/Vol] 0.82 mg/dL Normal 0.60-1.20 [facility] Comment on above: Performed By: #### L [id number] #### [facility] ([facility] [place] [facility]) [address] [place] [address] GLOMERULAR FILTRATION RATE ML/MIN/1.73 SQ M.PREDICTED 89.3 mL/min/1.73m*2 Normal >60.0 [facility] Comment on above: Result Comment: [facility]???s estimated glomerular filtration rate (eGFR) will no longer include consideration of race in its calculation. The [employer]???s eGFR Task Force developed new recommendations for the estimation of the glomerular filtration rate in the [place] They recommend immediate implementation of the new equation refit without the race variable in all laboratories because the calculation does not include race. In addition to not including race in the calculation and reporting, it included diversity in its development, and has acceptable performance characteristics and potential consequences that do not disproportionately affect any one group of individuals. Performed By: #### L [id number] #### [facility]) [address] [place] [address] Glucose [Mass/Vol] 133 mg/dL High 70-100 [facility] Comment on above: Performed By: #### L [id number] #### [facility]) [address] [place] [address] Potassium [Moles/Vol] 3.6 mmol/L Normal 3.5-5.1 [facility] Comment on above: Performed By: #### L [id number] #### [facility] ([facility]) [address] [place] [address] Sodium [Moles/Vol] 135 mmol/L Low 136-145 [facility] Comment on above: Performed By: #### L [id number] #### [facility] ([facility]) [address] [place] [address] Urea nitrogen [Mass/Vol] 9 mg/dL Normal 7-25 [facility] Comment on above: Performed By: #### L [id number] #### [facility] ([facility]) [address] [place] [address] UREA NITROGEN/CREATININE (MASS RATIO) IN SER/PLAS 11.0 Normal [facility] Comment on above: Performed By: #### L [id number] #### [facility] ([facility]) [address] [place] [address] CBCon 05-03-2023 Erythrocyte distribution width (RBC) [Ratio] 13.1 % Normal 11.5-15.0 [facility] Comment on above: Performed By: #### L [id number] ####[facility] ([facility])[address] [place] [address] ERYTHROCYTE MEAN CORPUSCULAR HEMOGLOBIN CONCENTRATION (G/DL) BY AUTOMATED 33.0 g/dL Normal 32.0-35.0 [facility] Comment on above: Performed By: #### L [id number] ####[facility] ([facility])[address] [place] [address] Hematocrit (Bld) [Volume fraction] 35.5 % Low 36.0-48.0 [facility] Comment on above: Performed By: #### L [id number] ####[facility] ([facility])[address] [place] [address] Hemoglobin (Bld) [Mass/Vol] 11.7 g/dL Low 12.0-15.0 [facility] Comment on above: Performed By: #### L [id number] ####[facility] ([facility])[address] [address] MCH (RBC) [Entitic mass] 28.5 pg Normal 27.0-33.0 [facility] Comment on above: Performed By: #### L [id number] ####[facility] ([facility])[address] [place] [address] MCV (RBC) [Entitic vol] 86.6 fL Normal 82.0-98.0 [facility] Comment on above: Performed By: #### L [id number] ####[facility] ([facility])[address] [place] [address] PLATELETS (10*3/UL) IN BLOOD AUTOMATED COUNT 251 10*3/uL Normal 150-400 [facility] Comment on above: Performed By: #### L [id number] ####[facility] ([facility])[address] [place] [address] RBC (Bld) [#/Vol] 4.10 10*6/uL Normal 3.80-5.00 [facility] Comment on above: Performed By: #### L [id number] ####[facility] ([facility])[address] [address] WBC (Bld) [#/Vol] 5.14 10*3/uL Normal 4.00-10.60 [facility] Comment on above: Performed By: #### L [id number] ####[facility] ([facility])[address] [place] [address] PETRAon 05-03-2023 PETRA Reviewed discharge paperwork with pt; pt states she wants to take all morning meds once she is home, pt med list updated to reflect this statement. Pt expresses understanding of discharge instructions and f/u appt made. Normal [facility] Orders Onlyon 05-03-2023 Orders Only [id number] Joi Gonzalez 1975 F Date Provider Department Center 05/03/20237-CARMEN GARCIA [facility] No family history on file [facility] 30on 05-02-2023 30 The patient is Moderately Stable - Low risk of patient condition declining or worsening The patient's goals for the shift include comfort The clinical goals for the shift include safety Problem: Pain - Adult Goal: Verbalizes/displays adequate comfort level or baseline comfort level Outcome: Progressing Flowsheets (Taken 05/01/20232005 by Dee Bagley RN) Verbalizes/displays adequate comfort level or baseline comfort level: Encourage patient to monitor pain and request assistance Assess pain using appropriate pain scale Administer analgesics based on type and severity of pain and evaluate response Implement non-pharmacological measures as appropriate and evaluate response Consider cultural and social influences on pain and pain management Notify Licensed Independent Practitioner if interventions unsuccessful or patient reports new pain Problem: Safety - Adult Goal: Free from fall injury Outcome: Progressing Flowsheets (Taken 05/02/2023 2204) Free from fall injury: Assess patient frequently for physical needs Identify cognitive and physical deficits and behaviors that affect risk of falls [place] fall precautions as indicated by assessment Educate patient/family on patient safety, including physical limitations Instruct patient to call for assistance with activity based on assessment Modify environment to reduce risk of injury Consider OT/PT consult to assist with strengthening/mobility Problem: Discharge Planning Goal: Discharge to home or other facility with appropriate resources Outcome: Progressing Flowsheets (Taken 04/30/2023 0843 by Marilu Vallecillo RN) Discharge to home or other facility with appropriate resources: Identify barriers to discharge with patient and caregiver Arrange for needed discharge resources and transportation as appropriate Identify discharge learning needs (meds, wound care, etc) Problem: Chronic Conditions and Co-morbidities Goal: Patient's chronic conditions and co-morbidity symptoms are monitored and maintained or improved Outcome: Progressing Flowsheets (Taken 05/01/20232014 by Dee Bagley RN) Care Plan - Patient's Chronic Conditions and Co-Morbidity Symptoms are Monitored and Maintained or Improved: Monitor and assess patient's chronic conditions and comorbid symptoms for stability, deterioration, or improvement Collaborate with multidisciplinary team to address chronic and comorbid conditions and prevent exacerbation or deterioration Update acute care plan with appropriate goals if chronic or comorbid symptoms are exacerbated and prevent overall improvement and discharge Normal [facility] 30 The patient is Moderately Stable - Low risk of patient condition declining or worsening The patient's goals for the shift include comfort The clinical goals for the shift include safety Over the shift, the patient did not make progress toward the following goals. Barriers to progression include na. Recommendations to address these barriers include na. Normal [facility] ANTI-XA (HEPARIN LEVEL)on HEPARIN UNFRACTIONATED (U/ML) IN PPP BY CHROMOGENIC METHOD 0.92 IU/mL Critically high 0.3-0.7 [facility] Comment on above: Order Comment: Check anti-Xa level every 6 hours while on heparin infusion, or per protocol. Result Comment: Talita roxaban and Apixaban will interfere with the anti Xa assay used to monitor UFH and LMWH. Performed By: #### L [id number] ####[facility] ([facility])[address] [place] [address] BASIC METABOLIC PANELon 10-0 Anion gap [Moles/Vol] 8 mmol/L Normal 7-20 [facility] Comment on above: Performed By: #### L [id number] ####[facility] ([facility])[address] [place] [address] Calcium [Mass/Vol] 7.9 mg/dL Low 8.6-10.3 [facility] Comment on above: Performed By: #### L [id number] ####[facility] ([facility])[address] [place] [address] Chloride [Moles/Vol] 108 mmol/L High 98-107 [facility] Comment on above: Performed By: #### L [id number] ####[facility] ([facility])[address] [place] [address] CO2 [Moles/Vol] 23 mmol/L Normal 21-31 [facility] Comment on above: Performed By: #### L [id number] ####[facility] ([facility])[address] [place] [address] Creatinine [Mass/Vol] 0.76 mg/dL Normal 0.60-1.20 [facility] Comment on above: Performed By: #### L [id number] ####[facility] ([facility])[address] [place] [address] GLOMERULAR FILTRATION RATE ML/MIN/1.73 SQ M.PREDICTED 97.8 mL/min/1.73m*2 Normal >60.0 [facility] Comment on above: Result Comment: The [facility]???s estimated glomerular filtration rate (eGFR) will no longer include consideration of race in its calculation. The National Kidney Foundation???s eGFR Task Force developed new recommendations for the estimation of the glomerular filtration rate in the [place] They recommend immediate implementation of the new equation refit without the race variable in all laboratories because the calculation does not include race. In addition to not including race in the calculation and reporting, it included diversity in its development, and has acceptable performance characteristics and potential consequences that do not disproportionately affect any one group of individuals. Performed By: #### L [id number] ####[facility] ([facility])[address] [place] [address] Glucose [Mass/Vol] 95 mg/dL Normal 70-100 [facility] Comment on above: Performed By: #### L [id number] ####[facility] ([facility])[address] [place] [address] Potassium [Moles/Vol] 3.9 mmol/L Normal 3.5-5.1 [facility] Comment on above: Performed By: #### L [id number] ####[facility] ([facility])[address] [place] [address] Sodium [Moles/Vol] 135 mmol/L Low 136-145 [facility] Comment on above: Performed By: #### L [id number] ####[facility] ([facility])[address] [place] [address] Urea nitrogen [Mass/Vol] 7 mg/dL Normal 7-25 [facility] Comment on above: Performed By: #### L [id number] ####[facility] ([facility])[address] [place] [address] UREA NITROGEN/CREATININE (MASS RATIO) IN SER/PLAS 9.2 Normal [facility] Comment on above: Performed By: #### L [id number] ####[facility] ([facility])[address] [place] [address] CBCon 05-02-2023 Erythrocyte distribution width (RBC) [Ratio] 13.2 % Normal 11.5-15.0 [facility] Comment on above: Performed By: #### L [id number] ####[facility] ([facility])[address] [place] [address] ERYTHROCYTE MEAN CORPUSCULAR HEMOGLOBIN CONCENTRATION (G/DL) BY AUTOMATED 32.3 g/dL Normal 32.0-35.0 [facility] Comment on above: Performed By: #### L [id number] ####[facility] ([facility])[address] [place] [address] Hematocrit (Bld) [Volume fraction] 36.2 % Normal 36.0-48.0 [facility] Comment on above: Performed By: #### L [id number] ####[facility] ([facility])[address] [place] [address] Hemoglobin (Bld) [Mass/Vol] 11.7 g/dL Low 12.0-15.0 [facility] Comment on above: Performed By: #### L [id number] ####[facility] [place] [address] MCH (RBC) [Entitic mass] 28.1 pg Normal 27.0-33.0 [facility] Comment on above: Performed By: #### L [id number] ####[facility] ([facility])[address] [place] [address] MCV (RBC) [Entitic vol] 86.8 fL Normal 82.0-98.0 [facility] Comment on above: Performed By: #### L [id number] ####[facility] [place] [address] PLATELETS (10*3/UL) IN BLOOD AUTOMATED COUNT 264 10*3/uL Normal 150-400 [facility] Comment on above: Performed By: #### L [id number] ####[facility] ([facility])[address] [place] [address] RBC (Bld) [#/Vol] 4.17 10*6/uL Normal 3.80-5.00 [facility] Comment on above: Performed By: #### L [id number] ####[facility] ([facility])[address] [place] [address] WBC (Bld) [#/Vol] 4.11 10*3/uL Normal 4.00-10.60 [facility] Comment on above: Performed By: #### L [id number] ####[facility] ([facility])[address] [place] [address] CT ABDOMEN PELVIS W IV CONTR Shanda 05-02-2023 CT ABDOMEN PELVIS W IV CONTRAST CT ABDOMEN PELVIS W IV CONTRAST HISTORY: Portal vein thrombus. Abdominal pain. TECHNIQUE: CT ABDOMEN PELVIS W IV CONTRAST. All CT scans at this facility use dose modulation, iterative reconstruction, and/or weight based dosing when appropriate to reduce radiation dose to as low as reasonably achievable. FINDINGS: Comparison CT scan April 30, 2023. Lung bases are clear. The liver is unremarkable. The gallbladder surgically absent. No biliary dilatation. The pancreas, spleen, and adrenal glands are unremarkable. The kidneys enhance symmetrically. No hydronephrosis. No ureteral obstruction. Urinary bladder contour is unremarkable. No intra-abdominal free air. Small bowel is normal in caliber, no bowel obstruction. Colon is unremarkable by CT. The appendix is normal. The aorta is normal in course and caliber. No aneurysm. The portal vein is patent. No definite portal vein thrombus. Previously visualized questionable filling defect at the portal vein and SMV is not appreciated on this study. IMPRESSION: *No acute findings. No definite portal vein thrombus. Electronically signed: Mayank Whaley. Normal [facility] HEMOGLOBIN AND HEMATOCRIT, B LOODon 05-02-2023 Hematocrit (Bld) [Volume fraction] 36.9 % Normal 36.0-48.0 [facility] Comment on above: Performed By: #### L [id number] #### [facility]) [address] [place] [address] Hemoglobin (Bld) [Mass/Vol] 11.6 g/dL Low 12.0-15.0 [facility] Comment on above: Performed By: #### L [id number] #### [facility] ([facility]) [address] [place] [address] HISTOLOGY - TISSUE EXAMon LAB AP ADDENDUM 1 Normal [facility] Comment on above: Result Comment: A. I mmunostain for H. pylori is negative. Addendum electronically signed by Rosalia Cameron MD on 05/30/2023 at 5:08 PM Performed By: #### L [id number] #### [facility] ([facility]) [address] [place] [address] LAB AP ASR DISCLAIMER The interpretation of this case included the use of immunohistochemistry or special stains. These tests have not been cleared or approved by the [place].S. Food and Drug Administration. The FDA has determined that such clearance or approval is not necessary. These tests are used for clinical purposes and should not be regarded as investigational or for research. This laboratory is certified to perform high complexity testing under the Clinical Laboratory Improvement Amendments of 1998. Normal [facility] Comment on above: Performed By: #### L [id number] #### [facility] ([facility]) [address] [place] [address] LAB AP CASE REPORT Normal [facility] Comment on above: Result Comment: Surg ical Pathology Case: [id number] Authorizing Provider: Di Amaya MD Collected: 05/02/2023 1257 Ordering Location: [facility] Clinical Observation Received: 05/02/2023 1503 Unit Pathologist: Rosalia Cameron MD Specimens: A) - Gastric, GASTRIC RULE OUT H.PYLORI B) - Small Intestine, Duodenum, DUODENUM RULE OUT CELIAC C) - Large Intestine, Right/Ascending Colon, ASCENDING COLON POLYP D) - Large Intestine, RANDOM COLON RULE OUT MICROSCOPIC COLITITIS, IBD Performed By: #### L [id number] #### [facility] ([facility]) [address] [place] [address] LAB AP CLINICAL INFORMATION Order Diagnoses Normal [facility] Comment on above: Result Comment: N39. 0 - Urinary tract infection without hematuria, site unspecified [ICD-10-CM] R10.9 - Abdominal pain, unspecified abdominal location [ICD-10-CM] R10.31 - Right lower quadrant abdominal pain [ICD-10-CM] R19.7 - Bloody diarrhea [ICD-10-CM] Performed By: #### L [id number] #### [facility] ([facility]) [address] [place] [address] LAB AP DIAGNOSIS COMMENT Normal [facility] Comment on above: Result Comment: A. I mmunostain for H. pylori is pending; results will be reported in an addendum. Performed By: #### L [id number] #### [facility] ([facility]) [address] [place] [address] LAB AP GROSS DESCRIPTION A. Gastric. Normal [facility] Comment on above: Result Comment: Rece ived in formalin labeled Conrad Gonzalez, GASTRIC RULE OUT H.PYLORI are four rodriguez soft tissue bits, 0.1 and 0.2 cm. The specimen is entirely submitted in a single cassette. Dee Pineda, [employer]' [employer] Rep[employer] B. Small Intestine, Duodenum. Received in formalin labeled Conrad Gonzalez, DUODENUM RULE OUT CELIAC are four rodriguez feathery soft tissue bits and strips, 0.1 to 0.4 cm. The specimen is entirely submitted in a single cassette. Dee Pineda [employer] Repairer C. Large Intestine, Right/Ascending Colon. Received in formalin labeled Conrad Gonzalez, ASCENDING COLON POLYP are four rodriguez soft tissue bits, 0.1 to 0.3 cm. The specimen is entirely submitted in a single cassette. Dee Pineda, Pathologists' [employer] Repairer D. Large Intestine. Received in formalin labeled Conradwaqas Gonzalez, RANDOM COLON RULE OUT MICROSCOPIC COLITITIS, IBD are ten rodriguez soft tissue bits and strips, 0.2 to 0.5 cm. The specimen is entirely submitted in a single cassette. Dee Pineda, Pathologists' [employer] Repairer Performed By: #### L [id number] #### [facility] ([facility]) [address] [place] [address] LAB AP MICROSCOPIC DESCRIPTION Microscopic examination performed. [facility] Comment on above: Performed By: #### L [id number] #### [facility] ([facility]) [address] [place] [address] LAB AP REPORT FINAL DIAGNOSIS NARRATIVE [facility] Comment on above: Result Comment: A. S tomach, biopsy: - Gastric mucosa with no significant histologic abnormality. - See comment. B. Anastomosis, biopsy: - Ulcerated small bowel mucosa with ulcer bed. - Background mucosal regenerative/reparative changes. - No evidence of dysplasia or neoplasm. C. Ascending colon, polyp, biopsy: - Tubular adenoma. D. Random colon, biopsy: - Colonic mucosa with no significant histologic abnormality. Performed By: #### L [id number] #### [facility] ([facility]) [address] [place] [address] [facility] 05-02-2023 -- Attestation signed by Di Amaya MD at 05/02/2023 12:14 PM I saw and evaluated the patient. I reviewed the resident's/fellow's note and agree with the findings and plan documents in the resident's/fellow's note H&P reviewed. The patient was examined and there are no changes to the H&P. Plan for EGD to evaluate source of abdominal pain. Plan for colonoscopy to evaluate source of diarrhea and hematochezia. [facility] MAGNESIUMon 05-02-2023 Magnesium [Mass/Vol] 1.9 mg/dL Normal 1.9-2.7 [facility] Comment on above: Performed By: #### L [id number] ####[facility] ([facility])[address] [place] [address] NURSNOTEon 05-02-2023 NURSNOTE Report called to Kimberly Armenta RN PACU [facility] POCT GLUCOSE METER UNSOLICIT ED RESULTSon 05-02-2023 Glucose [Mass/Vol] 99 mg/dL Normal 70-105 [facility] Comment on above: Order Comment: Waive d Testing in the ED is performed under the ED CLIA certificate #[id number]. Result Comment: verna glass Performed By: #### L [id number] #### [facility] [address] [place] [address] 30on 05-01-2023 30 The patient is Moderately Stable - Low risk of patient condition declining or worsening The patient's goals for the shift include comfort The clinical goals for the shift include safety [facility] 30 The patient is Moderately Stable - Low risk of patient condition declining or worsening The patient's goals for the shift include comfort The clinical goals for the shift include vss Over the shift, the patient did not make progress toward the following goals. Barriers to progression include na. Recommendations to address these barriers include na. [facility] 30 The patient is Moderately Stable - Low risk of patient condition declining or worsening The patient's goals for the shift include comfort The clinical goals for the shift include safety [facility] ANTI-XA (HEPARIN LEVEL)on HEPARIN UNFRACTIONATED (U/ML) IN PPP BY CHROMOGENIC METHOD 0.58 IU/mL Normal 0.3-0.7 [facility] Comment on above: Order Comment: Waive d Testing in the ED is performed under the ED CLIA certificate #[id number]. Result Comment: Talita roxaban and Apixaban will interfere with the anti Xa assay used to monitor UFH and LMWH. Performed By: #### L [id number] #### [facility] ([facility]) [address] [place] [address] BASIC METABOLIC PANELon Anion gap [Moles/Vol] 10 mmol/L Normal 7-20 [facility] Comment on above: Performed By: #### L [id number] ####[facility] ([facility])[address] [place] [address] Calcium [Mass/Vol] 7.2 mg/dL Low 8.6-10.3 [facility] Comment on above: Performed By: #### L [id number] ####[facility] ([facility])[address] [place] [address] Chloride [Moles/Vol] 108 mmol/L High 98-107 [facility] Comment on above: Performed By: #### L [id number] ####[facility] ([facility])[address] [place] [address] CO2 [Moles/Vol] 21 mmol/L Normal 21-31 [facility] Comment on above: Performed By: #### L [id number] ####[facility] ([facility])[address] [place] [address] Creatinine [Mass/Vol] 0.72 mg/dL Normal 0.60-1.20 [facility] Comment on above: Performed By: #### L [id number] ####[facility] ([facility])[address] [place] [address] GLOMERULAR FILTRATION RATE ML/MIN/1.73 SQ M.PREDICTED 104.4 mL/min/1.73m*2 Normal >60.0 [facility] Comment on above: Result Comment: The [facility]???s estimated glomerular filtration rate (eGFR) will no longer include consideration of race in its calculation. The National Kidney Foundation???s eGFR Task Force developed new recommendations for the estimation of the glomerular filtration rate in the [place] They recommend immediate implementation of the new equation refit without the race variable in all laboratories because the calculation does not include race. In addition to not including race in the calculation and reporting, it included diversity in its development, and has acceptable performance characteristics and potential consequences that do not disproportionately affect any one group of individuals. Performed By: #### L [id number] ####[facility] ([facility])[address] [place] [address] Glucose [Mass/Vol] 98 mg/dL Normal 70-100 [facility] Comment on above: Performed By: #### L [id number] ####[facility] ([facility])[address] [place] [address] Potassium [Moles/Vol] 4.1 mmol/L Normal 3.5-5.1 [facility] Comment on above: Performed By: #### L [id number] ####[facility] ([facility])[address] [place] [address] Sodium [Moles/Vol] 135 mmol/L Low 136-145 [facility] Comment on above: Performed By: #### L [id number] ####[facility] ([facility])[address] [place] [address] Urea nitrogen [Mass/Vol] 7 mg/dL Normal 7-25 [facility] Comment on above: Performed By: #### L [id number] ####[facility] ([facility])[address] [place] [address] UREA NITROGEN/CREATININE (MASS RATIO) IN SER/PLAS 9.7 Normal [facility] Comment on above: Performed By: #### L [id number] ####[facility] ([facility])[address] [place] [address] CBCon 05-01-2023 Erythrocyte distribution width (RBC) [Ratio] 13.2 % Normal 11.5-15.0 [facility] Comment on above: Performed By: #### L [id number] ####[facility] [facility] [place] [address] ERYTHROCYTE MEAN CORPUSCULAR HEMOGLOBIN CONCENTRATION (G/DL) BY AUTOMATED 31.4 g/dL Low 32.0-35.0 [facility] Comment on above: Performed By: #### L [id number] ####[facility] ([facility] [place] [address] Hematocrit (Bld) [Volume fraction] 34.1 % Low 36.0-48.0 [facility] Comment on above: Performed By: #### L [id number] ####[facility] ([facility] [place] [address] Hemoglobin (Bld) [Mass/Vol] 10.7 g/dL Low 12.0-15.0 [facility] Comment on above: Performed By: #### L [id number] ####[facility] ([facility] [place] [address] MCH (RBC) [Entitic mass] 28.4 pg Normal 27.0-33.0 [facility] Comment on above: Performed By: #### L [id number] ####[facility] ([facility] [place] [address] MCV (RBC) [Entitic vol] 90.5 fL Normal 82.0-98.0 [facility] Comment on above: Performed By: #### L [id number] ####[facility] ([facility] [place] [address] PLATELETS (10*3/UL) IN BLOOD AUTOMATED COUNT 208 10*3/uL Normal 150-400 [facility] Comment on above: Performed By: #### L [id number] ####[facility] (BEAKER)[address] [place] [address] RBC (Bld) [#/Vol] 3.77 10*6/uL Low 3.80-5.00 [facility] Comment on above: Performed By: #### L [id number] ####[facility] (BEAKER)[address] [place] [address] WBC (Bld) [#/Vol] 3.86 10*3/uL Low 4.00-10.60 [facility] Comment on above: Performed By: #### L [id number] ####[facility] (YISEL)[address] [place] [address] CONSULTon 05-01-2023 CONSULT -- Attestation signed by Di Amaya MD at 05/01/2023 11:50 AM I saw and evaluated the patient. I reviewed the resident's/fellow's note and agree with the findings and plan documents in the resident's/fellow's note Initial Gastroenterology/Hepat ology Consultation Note IDENTIFYING DATA PATIENT: Conrad Gonzalez ADMIT DATE: 04/30/2023 TIME OF EVALUATION: 05/01/2023 8:31 AM Reason for Consult: abdominal pain Admitting Physician: Jodi Owens DO HISTORY OF PRESENT ILLNESS Conrad Gonzalez is a 48 y.o. female with past medical hx of SLE, PUD, perforated ulcer s/p antrectomy with Bilroth II anastomosis and subsequent Jaleel patch closure of a gastric ulcer, cholecystectomy, documented Hx of gastric bypass 2014 done as complication of surgery for ulcer presented to the hospital with abdominal pain, located in right upper quadrant/ periumbilical area, decreased appetite and nausea associated with bloating. Patient reported it has been going on for the pst couple weeks. Patient denies hematemesis, melena, ,use of NSAIDS. Denies use of Anticoagulation. Patient reported ongoing diarrhea for the past couple weeks associated with hematochezia. patient denies fever and chills. since admission patient does not have any bowel movement. patient denies any recent travel, recent use of antibiotics. 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 Vascular team evaluated patient did not determine any surgical needs and deemed consider chronic and recommend to start patient on heparin infusion. GI HISTORY SUMMARY TABLE Last EGD Last 2017 The was a moderate amount of retained food in the gastric pouch. The gastrojejunal anastomosis was slightly ulcerated and narrowed. There appeared to be active reflux of bile from the small bowel into the stomach. Both the pancreaticobiliary and alimentary limbs of the Billroth II anastomosis appeared normal. Impression: Moderate gastritis likely bile reflux gastritis s/p gastric H pylori biopsies Retained food in the stomach Mild ulceration and narrowing at the gastrojejunal anastomosis s/p 15 mm balloon dilation with balloon in the pancreaticobiliary and alimentary limbs Normal small bowel s/p celiac biopsies Last colonoscopy Primary GI physician PAST MEDICAL, SURGICAL, FAMILY, and SOCIAL HISTORY Past Medical History: Past Medical History: Diagnosis Date Gastric ulcer Lupus (CMS/HCC) Past Surgical History: Past Surgical History: Procedure Laterality Date ABDOMINAL SURGERY Family History: No family history on file. Social History: Social History Tobacco Use Smoking status: Never Smokeless tobacco: Never Vaping Use Vaping Use: Never used Substance Use Topics Alcohol use: Never Drug use: Never Allergies: Allergies Allergen Reactions Amoxicillin Penicillins Hives MEDICATIONS Home Medications: Prior to Admission medications Medication Sig Start Date End Date Taking? Authorizing Provider clonazePAM (KlonoPIN) 1 mg tablet Take 1 mg by mouth in the morning, at noon, and at bedtime. Historical Provider, hydroxychloroquine (Plaquenil) 200 mg tablet Take 200 mg by mouth in the morning. Historical Provider, hydroxychloroquine (Plaquenil) 200 mg tablet Take 100 mg by mouth in the evening. Historical Provider, hydrOXYzine HCL (Atarax) 50 mg tablet Take 50 mg by mouth in the morning and at bedtime. Historical Provider, pantoprazole (ProtoNix) 40 mg EC tablet Take 40 mg by mouth before breakfast. Do not crush, chew, or split. Historical Provider, pilocarpine (Salagen) 5 mg tablet Take 5 mg by mouth in the morning and at bedtime. Historical Provider, promethazine (Phenergan) 12.5 mg tablet Take 12.5 mg by mouth if needed in the morning and at bedtime for nausea or vomiting. Historical Provider, SUMAtriptan (Imitrex) 50 mg tablet Take 50 mg by mouth 1 (one) time if needed for migraine. May repeat dose once in 2 hours if no relief. Do not exceed 2 doses in 24 hours. Historical Provider, Current Medications: cefTRIAXone, 1 g, intravenous, q24h hydroxychloroquine, 100 mg, oral, q PM hydroxychloroquine, 200 mg, oral, Daily hydrOXYzine HCL, 50 mg, oral, BID pantoprazole, 40 mg, intravenous, q24h ELLIS pilocarpine, 5 mg, oral, BID polyethylene glycol, 17 g, oral, Daily PRNs: clonazePAM, 0.5 mg, BID PRN heparin (porcine), 25 Units/kg, q6h PRN oxyCODONE-acetaminophe n, 1 tablet, q8h PRN promethazine, 12.5 mg, BID PRN REVIEW OF SYSTEMS See HPI, otherwise ROS negative as below CONSTITUTIONAL: negative HEENT: negative RESPIRATORY: negative CARDIOVASCULAR: negative GASTROINTESTINAL: as in HPI GENITOURINARY: (more content not included)... Normal [facility] ENTERIC BACTERIAL DNA PANELo n 05-01-2023 CAMPYLOBACTER SPECIES Negative Normal Negative [facility] Comment on above: Order Comment: Re PT T-LA wrong order Performed By: #### L [id number] #### [facility] (BEAKER) [address] [place] [address] ENTEROTOXIGENIC E. COLI (ETEC) LT/ST Negative Normal Negative [facility] Comment on above: Order Comment: Re PT T-LA wrong order Performed By: #### L [id number] #### [facility] (BEAKER) [address] [place] [address] PLESIOMONAS SHIGELLOIDES Negative Normal Negative [facility] Comment on above: Order Comment: Re PT T-LA wrong order Performed By: #### L [id number] #### [facility] ([facility] [address] [place] [address] SALMONELLA SPECIES Negative Normal Negative [facility] Comment on above: Order Comment: Re PT T-LA wrong order Performed By: #### L [id number] #### [facility] ([facility] [address] [place] [address] SHIGA-LIKE TOXIN-PRODUCING E. COLI (STEC) STX1/STX2 Negative Normal Negative [facility] Comment on above: Order Comment: Re PT T-LA wrong order Performed By: #### L [id number] #### [facility] (BEAKER) [address] [place] [address] SHIGELLA SPECIES Negative Normal Negative [facility] Comment on above: Order Comment: Re PT T-LA wrong order Performed By: #### L [id number] #### [facility] (BEAKER) [address] [place] [address] VIBRIO SPECIES Negative Normal Negative [facility] Comment on above: Order Comment: Re PT T-LA wrong order Performed By: #### L [id number] #### [facility] (BEAKER) [address] [place] [address] YERSINIA ENTEROCOLITICA Negative Normal Negative [facility] Comment on above: Order Comment: Re PT T-LA wrong order Performed By: #### L [id number] #### [facility] (BEAKER) [address] [place] [address] HEMOGLOBIN AND HEMATOCRIT, B LOODon 05-01-2023 Hematocrit (Bld) [Volume fraction] 35.5 % Low 36.0-48.0 [facility] Comment on above: Performed By: #### L [id number] ####[facility] (BEAKER)[address] [place] [address] Hemoglobin (Bld) [Mass/Vol] 11.7 g/dL Low 12.0-15.0 [facility] Comment on above: Performed By: #### L [id number] ####[facility] ([place] [address] HPon 05-01-2023 HP -- Attestation signed by Di Amaya MD at 05/01/2023 11:50 AM I saw and evaluated the patient. I reviewed the resident's/fellow's note and agree with the findings and plan documents in the resident's/fellow's note Initial Gastroenterology/Hepat ology Consultation Note IDENTIFYING DATA PATIENT: Conrad Gonzalez ADMIT DATE: 04/30/2023 TIME OF EVALUATION: 05/01/2023 8:31 AM Reason for Consult: abdominal pain Admitting Physician: Jodi Owens DO HISTORY OF PRESENT ILLNESS Conrad Gonzalez is a 48 y.o. female with past medical hx of SLE, PUD, perforated ulcer s/p antrectomy with Bilroth II anastomosis and subsequent Jaleel patch closure of a gastric ulcer, cholecystectomy, documented Hx of gastric bypass 2014 done as complication of surgery for ulcer presented to the hospital with abdominal pain, located in right upper quadrant/ periumbilical area, decreased appetite and nausea associated with bloating. Patient reported it has been going on for the pst couple weeks. Patient denies hematemesis, melena, ,use of NSAIDS. Denies use of Anticoagulation. Patient reported ongoing diarrhea for the past couple weeks associated with hematochezia. patient denies fever and chills. since admission patient does not have any bowel movement. patient denies any recent travel, recent use of antibiotics. 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 Vascular team evaluated patient did not determine any surgical needs and deemed consider chronic and recommend to start patient on heparin infusion. GI HISTORY SUMMARY TABLE Last EGD Last 2017 The was a moderate amount of retained food in the gastric pouch. The gastrojejunal anastomosis was slightly ulcerated and narrowed. There appeared to be active reflux of bile from the small bowel into the stomach. Both the pancreaticobiliary and alimentary limbs of the Billroth II anastomosis appeared normal. Impression: Moderate gastritis likely bile reflux gastritis s/p gastric H pylori biopsies Retained food in the stomach Mild ulceration and narrowing at the gastrojejunal anastomosis s/p 15 mm balloon dilation with balloon in the pancreaticobiliary and alimentary limbs Normal small bowel s/p celiac biopsies Last colonoscopy Primary GI physician PAST MEDICAL, SURGICAL, FAMILY, and SOCIAL HISTORY Past Medical History: Past Medical History: Diagnosis Date Gastric ulcer Lupus (CMS/HCC) Past Surgical History: Past Surgical History: Procedure Laterality Date ABDOMINAL SURGERY Family History: No family history on file. Social History: Social History Tobacco Use Smoking status: Never Smokeless tobacco: Never Vaping Use Vaping Use: Never used Substance Use Topics Alcohol use: Never Drug use: Never Allergies: Allergies Allergen Reactions Amoxicillin Penicillins Hives MEDICATIONS Home Medications: Prior to Admission medications Medication Sig Start Date End Date Taking? Authorizing Provider clonazePAM (KlonoPIN) 1 mg tablet Take 1 mg by mouth in the morning, at noon, and at bedtime. Historical Provider, hydroxychloroquine (Plaquenil) 200 mg tablet Take 200 mg by mouth in the morning. Historical Provider, hydroxychloroquine (Plaquenil) 200 mg tablet Take 100 mg by mouth in the evening. Historical Provider, hydrOXYzine HCL (Atarax) 50 mg tablet Take 50 mg by mouth in the morning and at bedtime. Historical Provider, pantoprazole (ProtoNix) 40 mg EC tablet Take 40 mg by mouth before breakfast. Do not crush, chew, or split. Historical Provider, pilocarpine (Salagen) 5 mg tablet Take 5 mg by mouth in the morning and at bedtime. Historical Provider, promethazine (Phenergan) 12.5 mg tablet Take 12.5 mg by mouth if needed in the morning and at bedtime for nausea or vomiting. Historical Provider, SUMAtriptan (Imitrex) 50 mg tablet Take 50 mg by mouth 1 (one) time if needed for migraine. May repeat dose once in 2 hours if no relief. Do not exceed 2 doses in 24 hours. Historical Provider, Current Medications: cefTRIAXone, 1 g, intravenous, q24h hydroxychloroquine, 100 mg, oral, q PM hydroxychloroquine, 200 mg, oral, Daily hydrOXYzine HCL, 50 mg, oral, BID pantoprazole, 40 mg, intravenous, q24h ELLIS pilocarpine, 5 mg, oral, BID polyethylene glycol, 17 g, oral, Daily PRNs: clonazePAM, 0.5 mg, BID PRN heparin (porcine), 25 Units/kg, q6h PRN oxyCODONE-acetaminophe n, 1 tablet, q8h PRN promethazine, 12.5 mg, BID PRN REVIEW OF SYSTEMS See HPI, otherwise ROS negative as below CONSTITUTIONAL: negative HEENT: negative RESPIRATORY: negative CARDIOVASCULAR: negative GASTROINTESTINAL: as in HPI GENITOURINARY: (more content not included)... Normal [facility] 30on 04-30-2023 30 Problem: Neurosensor y - Adult Goal: Achieves stable or improved neurological status Outcome: Progressing Flowsheets (Taken 04/30/2023829) Achieves stable or improved neurological status: Assess for and report changes in neurological status Initiate measures to prevent increased intracranial pressure Maintain blood pressure and fluid volume within ordered parameters to optimize cerebral perfusion and minimize risk of hemorrhage Monitor temperature, glucose, and sodium. Initiate appropriate interventions as ordered Problem: Respiratory - Adult Goal: Achieves optimal ventilation and oxygenation Outcome: Progressing Flowsheets (Taken 04/30/2023829) Achieves optimal ventilation and oxygenation: Assess for changes in respiratory status Assess for changes in mentation and behavior Position to facilitate oxygenation and minimize respiratory effort Oxygen supplementation based on oxygen saturation or arterial blood gases Respiratory therapy support as indicated Problem: Cardiovascular - Adult Goal: Maintains optimal cardiac output and hemodynamic stability Outcome: Progressing Flowsheets (Taken 04/30/2023829) Maintains optimal cardiac output and hemodynamic stability: Monitor blood pressure and heart rate Monitor urine output and notify Licensed Independent Practitioner for values outside of normal range Assess for signs of decreased cardiac output Problem: Skin/Tissue Integrity - Adult Goal: Skin integrity remains intact Outcome: Progressing Flowsheets (Taken 04/30/2023829) Skin integrity remains intact: Monitor for areas of redness and/or skin breakdown Problem: Musculoskeletal - Adult Goal: Return mobility to safest level of function Outcome: Progressing Flowsheets (Taken 04/30/2023829) Return mobility to safest level of function: Assess patient stability and activity tolerance for standing, transferring and ambulating with or without assistive devices Assist with transfers and ambulation using safe patient handling equipment as needed Ensure adequate protection for wounds/incisions during mobilization Obtain physical therapy/occupational therapy consults as needed Instruct patient/family in ordered activity level Problem: Gastrointestinal - Adult Goal: Maintains or returns to baseline bowel function Outcome: Progressing Flowsheets (Taken 04/30/2023829) Maintains or returns to baseline bowel function: Assess bowel function Encourage oral fluids to ensure adequate hydration Encourage mobilization and activity Problem: Genitourinary - Adult Goal: Absence of urinary retention Outcome: Progressing Flowsheets (Taken 04/30/2023829) Absence of urinary retention: Assess patient???s ability to void and empty bladder Monitor intake/output and perform bladder scan as needed Problem: Infection - Adult Goal: Absence of infection at discharge Outcome: Progressing Flowsheets (Taken 04/30/2023829) Absence of infection at discharge: Assess and monitor for signs and symptoms of infection Monitor lab/diagnostic results Instruct and encourage patient and family to use good hand hygiene technique Problem: Metabolic/Fluid and Electrolytes - Adult Goal: Electrolytes maintained within normal limits Outcome: Progressing Flowsheets (Taken 04/30/2023829) Electrolytes maintained within normal limits: Monitor labs and assess patient for signs and symptoms of electrolyte imbalances Administer electrolyte replacement as ordered Monitor response to electrolyte replacements, including repeat lab results as appropriate Problem: Hematologic - Adult Goal: Maintains hematologic stability Outcome: Progressing Flowsheets (Taken 04/30/2023829) Maintains hematologic stability: Assess for signs and symptoms of bleeding or hemorrhage Monitor labs for bleeding or clotting disorders Problem: Pain - Adult Goal: Verbalizes/displays adequate comfort level or baseline comfort level Outcome: Progressing Flowsheets (Taken 04/30/2023842) Verbalizes/displays adequate comfort level or baseline comfort level: Encourage patient to monitor pain and request assistance Assess pain using appropriate pain scale Administer analgesics based on type and severity of pain and evaluate response Implement non-pharmacological measures as appropriate and evaluate response Problem: Discharge Planning Goal: Discharge to home or other facility with appropriate resources Outcome: Progressing Flowsheets (Taken 04/30/2023 0843) Discharge to home or other facility with appropriate resources: Identify barriers to discharge with patient and caregiver Arrange for needed discharge resources and transportation as appropriate Identify discharge learning needs (meds, wound care, etc) Problem: Chronic Conditions and Co-morbidities Goal: Patient's chronic conditions and co-morbidity symptoms are monitored and maintained or improved Outcome: Progressing Flowsheets (Taken (more content not included)... Normal [facility] ANTI-XA (HEPARIN LEVEL)on HEPARIN UNFRACTIONATED (U/ML) IN PPP BY CHROMOGENIC METHOD 0.67 IU/mL Normal 0.3-0.7 [facility] Comment on above: Order Comment: Check anti-Xa level every 6 hours while on heparin infusion, or per protocol. Result Comment: [place] roxaban and Apixaban will interfere with the anti Xa assay used to monitor UFH and LMWH. Performed By: #### L [id number] #### [facility] (AmplienceAKER) [address] [place] [address] HEPARIN UNFRACTIONATED (U/ML) IN PPP BY CHROMOGENIC METHOD 0.56 IU/mL Normal 0.3-0.7 [facility] Comment on above: Order Comment: Waive d Testing in the ED is performed under the ED CLIA certificate #[id number]. Result Comment: [place] roxaban and Apixaban will interfere with the anti Xa assay used to monitor UFH and LMWH. Performed By: #### L [id number] #### [facility] (BEAKER) [address] [place] [address] APTTon 04-30-2023 ACTIVATED PARTIAL THROMBOPLASTIN TIME IN PPP BY COAGULATION ASSAY 83.9 Seconds High 25.0-35.0 [facility] Comment on above: Order Comment: Re PT T-LA wrong order Result Comment: Clin ical significance of the APTT is questionable in the presence of heparin. Performed By: #### L [id number] #### [facility] (BEAKER) [address] [place] [address] BASIC METABOLIC PANELon 10- Anion gap [Moles/Vol] 7 mmol/L Normal 7-20 [facility] Comment on above: Performed By: #### L [id number] #### [facility] ([facility]) [address] [place] [address] Calcium [Mass/Vol] 8.8 mg/dL Normal 8.6-10.3 [facility] Comment on above: Performed By: #### L [id number] #### [facility] ([facility]) [address] [place] [address] Chloride [Moles/Vol] 107 mmol/L Normal 98-107 [facility] Comment on above: Performed By: #### L [id number] #### [facility] ([facility]) [address] [place] [address] CO2 [Moles/Vol] 27 mmol/L Normal 21-31 [facility] Comment on above: Performed By: #### L [id number] #### [facility] ([facility]) [address] [place] [address] Creatinine [Mass/Vol] 0.97 mg/dL Normal 0.60-1.20 [facility] Comment on above: Performed By: #### L [id number] #### [facility] ([facility]) [address] [place] [address] GLOMERULAR FILTRATION RATE ML/MIN/1.73 SQ M.PREDICTED 73.0 mL/min/1.73m*2 Normal >60.0 [facility] Comment on above: Result Comment: The [facility]???s estimated glomerular filtration rate (eGFR) will no longer include consideration of race in its calculation. The National Kid[employer] Foundation???s eGFR Task Force developed new recommendations for the estimation of the glomerular filtration rate in the [place] They recommend immediate implementation of the new equation refit without the race variable in all laboratories because the calculation does not include race. In addition to not including race in the calculation and reporting, it included diversity in its development, and has acceptable performance characteristics and potential consequences that do not disproportionately affect any one group of individuals. Performed By: #### L [id number] #### [facility] ([facility]) [address] [place] [address] Glucose [Mass/Vol] 59 mg/dL Low 70-100 [facility] Comment on above: Performed By: #### L [id number] #### [facility] ([facility]) [address] [place] [address] Potassium [Moles/Vol] 4.3 mmol/L Normal 3.5-5.1 [facility] Comment on above: Performed By: #### L [id number] #### [facility] ([facility]) [address] [place] [address] Sodium [Moles/Vol] 137 mmol/L Normal 136-145 [facility] Comment on above: Performed By: #### L [id number] #### [facility] ([facility]) [address] [place] [address] Urea nitrogen [Mass/Vol] 11 mg/dL Normal 7-25 [facility] Comment on above: Performed By: #### L [id number] #### [facility] ([facility]) [address] [place] [address] UREA NITROGEN/CREATININE (MASS RATIO) IN SER/PLAS 11.3 Normal [facility] Comment on above: Performed By: #### L [id number] #### [facility] ([facility]) [address] [place] [address] BLOOD CULTUREon 04-30-2023 Bacteria identified Cx Nom (Bld) No growth at 5 days [facility] Comment on above: Performed By: #### L [id number] ####[facility] ([facility])[address] [place] [address] Bacteria identified Cx Nom (Bld) No growth at 5 days [facility] Comment on above: Performed By: #### L [id number] #### [facility] ([facility]) [address] [place] [address] CBC WITH AUTO DIFFERENTIALon 04-30-2023 Basophils (Bld) [#/Vol] 0.04 10*3/uL Normal 0.00-0.20 [facility] Comment on above: Performed By: #### L [id number] ####[facility] (BEAKER)[address] [place] [address] Basophils/100 WBC (Bld) 0.9 % Normal 0.0-1.0 [facility] Comment on above: Performed By: #### L [id number] ####[facility] (BEAKER)[address] [place] [address] Eosinophils (Bld) [#/Vol] 0.05 10*3/uL Normal 0.00-0.50 [facility] Comment on above: Performed By: #### L [id number] ####[facility] (BEAKER)[address] [place] [address] Eosinophils/100 WBC (Bld) 1.1 % Normal 0.0-6.0 [facility] Comment on above: Performed By: #### L [id number] ####[facility] (BEAKER)[address] [place] [address] Erythrocyte distribution width (RBC) [Ratio] 13.2 % Normal 11.5-15.0 [facility] Comment on above: Performed By: #### L [id number] ####[facility] (BEAKER)[address] [place] [address] ERYTHROCYTE MEAN CORPUSCULAR HEMOGLOBIN CONCENTRATION (G/DL) BY AUTOMATED 32.5 g/dL Normal 32.0-35.0 [facility] Comment on above: Performed By: #### L [id number] ####[facility] (BEAKER)[address] [place] [address] Hematocrit (Bld) [Volume fraction] 36.9 % Normal 36.0-48.0 [facility] Comment on above: Performed By: #### L [id number] ####[facility] (BEAKER)[address] [place] [address] Hemoglobin (Bld) [Mass/Vol] 12.0 g/dL Normal 12.0-15.0 [facility] Comment on above: Performed By: #### L [id number] ####[facility] (BEAKER)[address] [place] [address] Immature granulocytes (Bld) [#/Vol] 0.01 10*3/uL Normal 0.00-0.20 [facility] Comment on above: Performed By: #### L [id number] ####[facility] [place] [address] Immature granulocytes/100 WBC (Bld) 0.2 % Normal 0.0-1.0 [facility] Comment on above: Performed By: #### L [id number] ####[facility] (BEAKER)[address] [place] [address] Lymphocytes (Bld) [#/Vol] 0.84 10*3/uL Low 1.20-4.00 [facility] Comment on above: Performed By: #### L [id number] ####[facility] (BEAKER)[address] [place] [address] Lymphocytes/100 WBC (Bld) 18.9 % Low 20.0-45.0 [facility] Comment on above: Performed By: #### L [id number] ####[facility] (BEAKER)[address] [place] [address] MCH (RBC) [Entitic mass] 28.1 pg Normal 27.0-33.0 [facility] Comment on above: Performed By: #### L [id number] ####[facility] (BEAKER)[address] [place] [address] MCV (RBC) [Entitic vol] 86.4 fL Normal 82.0-98.0 [facility] Comment on above: Performed By: #### L [id number] ####[facility] (BEAKER)[address] [place] [address] Monocytes (Bld) [#/Vol] 0.49 10*3/uL Normal 0.10-1.00 [facility] Comment on above: Performed By: #### L [id number] ####[facility] ([facility])[address] [place] [address] Monocytes/100 WBC (Bld) 11.0 % Normal 5.0-12.0 [facility] Comment on above: Performed By: #### L [id number] ####[facility] ([facility])[address] [address] Neutrophils (Bld) [#/Vol] 3.02 10*3/uL Normal 1.60-7.60 [facility] Comment on above: Performed By: #### L [id number] ####[facility] ([facility])[address] [place] [address] Neutrophils/100 WBC (Bld) 67.9 % Normal 40.0-72.0 [facility] Comment on above: Performed By: #### L [id number] ####[facility] ([facility])[address] [place] [address] NRBC (PER 100 WBCS) BY AUTOMATED COUNT 0.0 % Normal 0 [facility] Comment on above: Performed By: #### L [id number] ####[facility] ([facility])[address] [address] PLATELETS (10*3/UL) IN BLOOD AUTOMATED COUNT 245 10*3/uL Normal 150-400 [facility] Comment on above: Performed By: #### L [id number] ####[facility] ([facility])[address] [place], [place] [address] RBC (Bld) [#/Vol] 4.27 10*6/uL Normal 3.80-5.00 [facility] Comment on above: Performed By: #### L [id number] ####[facility] ([facility])[address] [place] [address] WBC (Bld) [#/Vol] 4.45 10*3/uL Normal 4.00-10.60 [facility] Comment on above: Performed By: #### L [id number] ####[facility] (YISEL)[address] [place] [address] CONSULTon 04-30-2023 CONSULT -- Attestation signed by Jozef Scruggs MD at 04/30/2023 2:29 PM I personally saw and examined the patient on the same date of service as resident/fellow Gabe Malik. I discussed the findings and therapeutic plan with the resident/fellow TAMMY. I agree with the documentation, except for any edits/updates below. Teaching Physician's Revisions: None Patient seen and examined in ED. Abdomen is soft with mild tenderness. No rebound or guarding. Has had diarrhea/loose stools. Denies antibiotic use. Reportedly on illicit drugs. Reviewed CT scan and all labs. No acute surgical abdomen. Questionable filling defect in distal IVC?? Recommend vascular consult. [facility] Surgery CONSULTATION Reason For Consult: Extensive surgical hx and abdominal pain Referring Provider: Dr. Ag, emergency department History Of Present Illness Conrad Gonzalez is a 48 y.o. female with a PMH of lupus, PUD, gastric anastomotic stricture and extensive surgical hx including perforated ulcer with jaleel patch repair x2, billroth 2 procedure, cholecystectomy, and gastrojejunostomy with open revision. Patient presents today with abdominal pain x 4 days and diarrhea with bright red blood. Patient endorses some nausea and decreased appetite without vomiting. Patient reports she feels bloated and has increased pain on the right side of her abdomen when standing. Patients BP soft 88-100 SBP and HR 81. Patient reports her BP runs low. Patient also endorses dysuria for the last week. Reports she has had adequate fluid intake. Patients labs all within normal limits with the exception of blood glucose 59. CT abd/pelvis revealed Eccentric filling defect in the distal portal vein which extends distally into the superior mesenteric vein, morphology suggestive of chronic venous thrombus versus mixing of noncontrast blood with contrast filled in portal vein. Past Medical History She has a past medical history of Gastric ulcer and Lupus (CMS/HCC). Surgical History Perforated gastric ulcer with jaleel patch repair x2 Billroth 2 procedure with cholecystectomy Gastrojejunostomy with open revision Family History Non contributory Social History She reports that she has never smoked. She has never used smokeless tobacco. She reports that she does not drink alcohol and does not use drugs. Allergies Amoxicillin and Penicillins Medications (Not in a hospital admission) No current facility-administered medications for this encounter. Review of Systems Constitutional: Positive for activity change and appetite change. Negative for chills and fever. Respiratory: Negative for shortness of breath. Cardiovascular: Negative for chest pain. Gastrointestinal: Positive for abdominal distention, abdominal pain, blood in stool, diarrhea and nausea. Negative for constipation and vomiting. Genitourinary: Positive for dysuria and urgency. Negative for frequency. All other systems reviewed and are negative. Last Recorded Vitals Patient Vitals for the past 24 hrs: BP Temp Temp src Pulse Resp SpO2 Height Weight 04/30/23 0420 100/82 -- -- -- -- 97 % -- -- 04/29/23 2212 88/61 36.7 ???C (98.1 ???F) -- 81 -- 100 % -- -- 04/29/23 2207 -- -- Oral -- 18 -- 1.676 m (5' 6 ) 71.2 kg (157 lb) Physical Exam Vitals reviewed. Constitutional: General: She is not in acute distress. Appearance: She is ill-appearing. She is not toxic-appearing or diaphoretic. Comments: Drowsy and slow to answer questions HENT: Mouth/Throat: Mouth: Mucous membranes are dry. Cardiovascular: Rate and Rhythm: Normal rate. Comments: Hypotensive SBP 88-100s Pulmonary: Effort: Pulmonary effort is normal. No respiratory distress. Abdominal: General: Abdomen is flat. There is no distension. Palpations: Abdomen is soft. Tenderness: There is abdominal tenderness. There is guarding. There is no rebound. Hernia: No hernia is present. Comments: Old midline surgical incision Genitourinary: Comments: LUIS MIGUEL without blood and no stool in vault, no hemorroids noted Skin: General: Skin is warm and dry. Capillary Refill: Capillary refill takes less than 2 seconds. Coloration: Skin is pale. Neurological: Mental Status: She is alert. Psychiatric: Comments: Flat affect. Slow to answer questions Relevant Results Recent Results (from the past 12 hour(s)) Basic metabolic panel Collection Time: 04/30/23 1:41 AM Result Value Ref Range Sodium 137 136 - 145 mmol/L Potassium 4.3 3.5 - 5.1 mmol/L Chloride 107 98 - 107 mmol/L CO2 27 21 - 31 mmol/L BUN 11 7 - 25 mg/dL Creatinine 0.97 0.60 - 1.20 mg/dL Glucose 59 (L) 70 - 100 mg/dL Calcium 8.8 8.6 - 10.3 mg/dL Anion Gap 7 7 - 20 mmol/L eGFR 73.0 >60.0 mL/min/1.73m*2 BUN/Creatinine Ratio 11.3 Lactate Blood x 1 Gabriela (more content not included)... Normal [facility] CT ABDOMEN PELVIS W IV CONTR Shanda 04-30-2023 CT ABDOMEN PELVIS W IV CONTRAST CT ABDOMEN PELVIS W IV CONTRAST 04/30/2023 3:03 AM Clinical indication: Left lower quadrant abdominal pain, rectal pain, hematochezia, diarrhea Comparison: None. Technique: *Axial CT images of the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 7.350 - 7.450 [facility] pO2, Sukhwinder 33.5 [facility] TC02 (Calc), Sukhwinder 27 mmol/L [facility] CALL [place] [facility] tel. [phone], Chemistry results called to and read back by VIDA MATHEWS, 07/08/2022 18:16, by [facility] CBC with Auto Differentialon 07-08-2022 Basophils (Bld) [#/Vol] 0.0 10*3/uL 0.0 - 0.2 K/uL [facility] Basophils/100 WBC (Bld) 0.2 % [facility] Eosinophils (Bld) [#/Vol] 0.0 10*3/uL 0.0 - 0.6 K/uL [facility] Eosinophils/100 WBC (Bld) 0.1 % [facility] Hematocrit (Bld) [Volume fraction] 29.6 % Low 36.0 - 48.0 % [facility] Hemoglobin (Bld) [Mass/Vol] 10.1 g/dL Low 12.0 - 16.0 g/dL [facility] Interpretation and review of laboratory results Abnormal [facility] Lymphocytes (Bld) [#/Vol] 0.4 10*3/uL Low 1.0 - 5.1 K/uL [facility] Lymphocytes/100 WBC (Bld) 3.4 % [facility] MCH (RBC) [Entitic mass] 27.4 pg 26.0 - 34.0 pg [facility] MCHC (RBC) [Mass/Vol] 34.1 g/dL 31.0 - 36.0 g/dL [facility] MCV (RBC) [Entitic vol] 80.4 fL 80.0 - 100.0 fL [facility] Monocytes (Bld) [#/Vol] 0.6 10*3/uL 0.0 - 1.3 K/uL [facility] Monocytes/100 WBC (Bld) 5.4 % [facility] Neutrophils Absolute 10.2 K/uL High 1.7 - 7 .7 K/uL [facility] Neutrophils/100 WBC (Bld) 90.9 % [facility] Platelet distribution width (Bld) [Ratio] 16.8 % High 12.4 - 15.4 % [facility] Platelet mean volume (Bld) [Entitic vol] 7.4 fL 5.0 - 10.5 fL [facility] Platelets (Bld) [#/Vol] 297 10*3/uL 135 - 450 K/uL [facility] RBC (Bld) [#/Vol] 3.69 10*6/uL Low [facility] WBC (Bld) [#/Vol] 11.2 10*3/uL High 4.0 - 11.0 K/uL [facility] Basophils (Bld) [#/Vol] 0.0 10*3/uL 0.0 - 0.2 K/uL [facility] Basophils/100 WBC (Bld) 0.2 % [facility] Eosinophils (Bld) [#/Vol] 0.0 10*3/uL 0.0 - 0.6 K/uL [facility] Eosinophils/100 WBC (Bld) 0.1 % [facility] Hematocrit (Bld) [Volume fraction] 31.0 % Low 36.0 - 48.0 % [facility] Hemoglobin (Bld) [Mass/Vol] 10.2 g/dL Low 12.0 - 16.0 g/dL [facility] Interpretation and review of laboratory results Abnormal [facility] Lymphocytes (Bld) [#/Vol] 0.4 10*3/uL Low 1.0 - 5.1 K/uL [facility] Lymphocytes/100 WBC (Bld) 3.0 % [facility] MCH (RBC) [Entitic mass] 26.7 pg 26.0 - 34.0 pg [facility] MCHC (RBC) [Mass/Vol] 32.8 g/dL 31.0 - 36.0 g/dL [facility] MCV (RBC) [Entitic vol] 81.4 fL 80.0 - 100.0 fL [facility] Monocytes (Bld) [#/Vol] 0.6 10*3/uL 0.0 - 1.3 K/uL [facility] Monocytes/100 WBC (Bld) 4.1 % [facility] Neutrophils Absolute 13.7 K/uL High 1.7 - 7 .7 K/uL [facility] Neutrophils/100 WBC (Bld) 92.6 % [facility] Platelet distribution width (Bld) [Ratio] 16.7 % High 12.4 - 15.4 % [facility] Platelet mean volume (Bld) [Entitic vol] 7.6 fL 5.0 - 10.5 fL [facility] Platelets (Bld) [#/Vol] 317 10*3/uL 135 - 450 K/uL [facility] RBC (Bld) [#/Vol] 3.81 10*6/uL Low [facility] WBC (Bld) [#/Vol] 14.8 10*3/uL High 4.0 - 11.0 K/uL [facility] EKG 12 LeadOrdered By: Unkno wn Result on 07-08-2022 Atrial Rate 79 BPM [facility] Diagnosis EKG performed in ER and to be interpreted by ER physician.Confirmed by MD, ER ([id number]), science editor FILIBERTO QUAN ([id number]) on 07/08/2022 7:11:21 PM [facility] P Buhler 84 degrees [facility] P-R Interval 122 ms [facility] Q-T Interval 410 ms [facility] QRS Duration 86 ms [facility] QTc Calculation (Bazett) 470 ms [facility] R Buhler 79 degrees [facility] T Buhler 72 degrees [facility] Ventricular Rate 79 BPM [facility] Ethanolon 07-08-2022 Ethanol Lvl Not detected mg/dL [facility] Comment on above: None Detected Conversion factor: 100 mg/dl = .100 g/dl For Medical Purposes Only HCG Qualitative, Serumon hCG Qual Negative Detects HCG level >10 MIU/mL [facility] Hepatic Function Panelon Albumin [Mass/Vol] 4.2 g/dL 3.4 - 5.0 g/dL [facility] ALP (Bld) [Catalytic activity/Vol] 164 U/L High 40 - 129 U/L [facility] ALT [Catalytic activity/Vol] 139 U/L High 10 - 40 U/L [facility] AST [Catalytic activity/Vol] 292 U/L High 15 - 37 U/L [facility] Comment on above: Specimen hemolysis h as exceeded the interference as defined by Tim. Value may be falsely increased. Suggest recollection if clinically indicated. Bilirubin [Mass/Vol] 0.3 mg/dL 0.0 - 1 .0 mg/dL [facility] Bilirubin, Indirect see below 0.0 - 1. 0 mg/dL [facility] Comment on above: Indirect Bilirubin c annot be calculated since Total Bilirubin and/or Direct Bilirubin is below measurable range. Bilirubin.indirect [Mass/Vol] mg/dL 0.0 - 0.3 mg/dL [facility] Comment on above: Specimen hemolysis h as exceeded the interference as defined by Tim. Value may be falsely increased. Suggest recollection if clinically indicated. Protein [Mass/Vol] 7.2 g/dL 6.4 - 8.2 g/dL [facility] No Panel Informationon 07-08 Interpretation and review of laboratory results Abnormal [facility] CALL [place] [facility] tel. [phone], Chemistry results called to and read back by ONIEL CRAIG 07/08/2022 18:44, by [facility] SPECIMEN REJECTIONon 022 Reason for Rejection see below [facility] Comment on above: Unable to perform te sting; specimen quantity not sufficient. To perform testing the specimen will need to be recollected. QNS Rejected Test CBCWD [facility] Salicylateon 07-08-2022 Salicylate, Serum <0.3 Low 15.0 - 30. 0 mg/dL [facility] Comment on above: Therapeutic Range: 1 5.0-30.0 mg/dL Toxic: >30.0 mg/dL Troponinon 07-08-2022 Troponin I.cardiac [Mass/Vol] ng/mL NINF - 0.01 ng/mL [facility] Comment on above: Methodology by Tropo carmella Gifford [facility] XR CHEST PORTABLEon 07-08-20 Clear lungs. Normal cardiomediastinal silhouette. SWOH RIS CONSOLIDATED Chest portable 1745 HISTORY: Short of breath SWOH RIS CONSOLIDATED Erasmo Membreno MD - 07/08/2022 Chest portable 1745 HISTORY: Short of breath IMPRESSION: Clear lungs. Normal cardiomediastinal silhouette. [facility] Work Phone: Radiology Study observation (narrative) [facility] Work Phone: XR CHEST PORTABLEOrdered By: Erasmo Membreno on 07-08-2022 [facility] Work Phone: Cardiac stress test EKG stud y Typeon 04-15-2022 Stress Echocardiography Report Demographics Patient Name CARLOS Best Date of Study 04/15/2022 Gender Female Patient Number [id number] Date of 1975 Visit Number [id number] Age 47 year(s) Accession Number [id number] Room Number OP Corporate ID [id number] [employer] Daphne Minor RDCS Ordering Physician Chasidy Joshi MD Physician Archie Xiao MD The procedure was explained in detail to the patient. Risks, complications and alternative treatments were reviewed. Written consent was obtained. Procedure Type of Study Stress procedure:ECHOCARDIOGR AM STRESS TEST. Procedure Date Date: 04/15/2022 Start: 02:39 PM Study Location: [facility] Technical Quality: Adequate visualization Patient Status: STAT Height: 66 inches Weight: 144 pounds BSA: 1.74 m2 BMI: 23.24 kg/m2 BP: 115/73 mmHg Conclusions Summary Normal Exercise Treadmill. EX time 11:28; Good functional capacity. Baseline resting echocardiogram shows normal global LV systolic function with an ejection fraction of 60% and uniform myocardial segmental wall motion. Following stress there was uniform augmentation of all myocardial segments with appropriate hyperdynamic LV systolic response to stress with an estimated ejection fraction of 70%. Signature Rest ECG NSR Nonspecific st-t changes Stress Stress Type: Exercise Rest HR: 96 bpm HR Response: Normal Rest BP: 125/81 mmHg BP Response: Normal Stress Peak HR: 162 bpm HR BP Product: [id number] Stress Peak BP: 160/60 mmHg Max Exercise: 13.4 METS Predicted HR: 175 bpm Stress EF: 70 % % of predicted HR: 93 Test Duration: 11 min and 28 sec Reason for Termination: Target heart rate Results Echo Baseline resting echocardiogram shows normal global LV systolic function with an ejection fraction of 60% and uniform myocardial segmental wall motion. Following stress there was uniform augmentation of all myocardial segments with appropriate hyperdynamic LV systolic response to stress with an estimated ejection fraction of 70%. ECG Sinus tachycardia No ischemic st-t changes Arrhythmias No arrhythmias. Symptoms No symptoms with exercise. [facility] Archie Xiao MD - 04/15/2022 Stress Echocardiography Report Demographics Patient Name CARLOS Best Date of Study 04/15/2022 Gender Female Patient Number [id number] Date of 1975 Visit Number [id number] Age 47 year(s) Accession Number [id number] Room Number Corporate ID [id number] [employer] Daphne Minor [facility] Ordering Physician Chasidy Joshi Lc Foy MD Physician Archie Xiao MD The procedure was explained in detail to the patient. Risks, complications and alternative treatments were reviewed. Written consent was obtained. Procedure Type of Study Stress procedure:ECHOCARDIOGR AM STRESS TEST. Procedure Date Date: 04/15/2022 Start: 02:39 PM Study Location: [facility] Lab Technical Quality: Adequate visualization Patient Status: STAT Height: 66 inches Weight: 144 pounds BSA: 1.74 m2 BMI: 23.24 kg/m2 BP: 115/73 mmHg Conclusions Summary Normal Exercise Treadmill. EX time 11:28; Good functional capacity. Baseline resting echocardiogram shows normal global LV systolic function with an ejection fraction of 60% and uniform myocardial segmental wall motion. Following stress there was uniform augmentation of all myocardial segments with appropriate hyperdynamic LV systolic response to stress with an estimated ejection fraction of 70%. Signature Rest ECG NSR Nonspecific st-t changes Stress Stress Type: Exercise Rest HR: 96 bpm HR Response: Normal Rest BP: 125/81 mmHg BP Response: Normal Stress Peak HR: 162 bpm HR BP Product: [id number] Stress Peak BP: 160/60 mmHg Max Exercise: 13.4 METS Predicted HR: 175 bpm Stress EF: 70 % % of predicted HR: 93 Test Duration: 11 min and 28 sec Reason for Termination: Target heart rate Results Echo Baseline resting echocardiogram shows normal global LV systolic function with an ejection fraction of 60% and uniform myocardial segmental wall motion. Following stress there was uniform augmentation of all myocardial segments with appropriate hyperdynamic LV systolic response to stress with an estimated ejection fraction of 70%. ECG Sinus tachycardia No ischemic st-t changes Arrhythmias No arrhythmias. Symptoms No symptoms with exercise. [facility] Phone: Cardiac stress test EKG stud y TypeOrdered By: Archie Xiao on 04-15-2022 [employer] Phone: APTTon 02-10-2020 aPTT Coag (Bld) [Time] 30 s [facility] [place] Comment on above: Therapeutic range: 4 9.0 - 76.0 sec Effective 06-12-19 9:00am EST Please note reference ranges have changed for PTT Testing. Basic Metabolic Panel w/ Ref asya to MGon 02-10-2020 Anion gap [Moles/Vol] 12 mmol/L [facility] [place] Calcium [Mass/Vol] 8.9 mg/dL 8.3 - 10. 6 mg/dL [place] Chloride [Moles/Vol] 102 mmol/L 99 - 11 0 mmol/L [place] CO2 [Moles/Vol] 24 mmol/L 21 - 32 mmol/L [place] Creatinine [Mass/Vol] 0.8 mg/dL 0.6 - 1.1 mg/dL [place] GFR >60 >60 [facility] [employer] [place] Comment on above: Chronic Kidney Disea se: less than 60 ml/min/1.73 sq.m. Kidney Failure: less than 15 ml/min/1.73 sq.m. Results valid for patients 18 years and older. GFR Non- >60 >60 [facility] [place], [place] Comment on above: >60 mL/min/1.73m2 EG FR, calc. for ages 18 and older using the MDRD formula (not corrected for weight), is valid for stable renal function. Glucose [Mass/Vol] 94 mg/dL 70 - 99 mg/dL [place], [place] Potassium [Moles/Vol] 4.2 mmol/L 3.5 - 5.1 mmol/L [place] Sodium [Moles/Vol] 138 mmol/L 136 - 145 mmol/L [place] Urea nitrogen [Mass/Vol] 11 mg/dL 7 - 20 mg/dL [place] CBC Auto Differentialon 01-22 Basophils (Bld) [#/Vol] 0.0 10*3/uL 0 - 0.2 K/uL [place] Basophils/100 WBC (Bld) 0.7 % [place] Eosinophils (Bld) [#/Vol] 0.2 10*3/uL 0 - 0.6 K/uL [place] Eosinophils/100 WBC (Bld) 2.3 % [place] Erythrocyte distribution width (RBC) [Ratio] 17.8 % High 12.4 - 15.4 % [place] Hematocrit (Bld) [Volume fraction] 33.6 % Low 36 - 48 % [place] Hemoglobin (Bld) [Mass/Vol] 11.1 g/dL Low 12 - 16 g/dL [place] Interpretation and review of laboratory results Abnormal [place] Lymphocytes (Bld) [#/Vol] 1.7 10*3/uL 1 - 5.1 K/uL [place] Lymphocytes/100 WBC (Bld) 25.1 % [place] MCH (RBC) [Entitic mass] 27.2 pg 26 - 34 pg [place] MCHC (RBC) [Mass/Vol] 33.0 g/dL 31 - 36 g/dL [place] MCV (RBC) [Entitic vol] 82.4 fL 80 - 100 fL [place] Monocytes (Bld) [#/Vol] 0.3 10*3/uL 0 - 1.3 K/uL [place] Monocytes/100 WBC (Bld) 4.7 % [place] Neutrophils Absolute 4.5 K/uL 1.7 - 7 .7 K/uL [place] Neutrophils/100 WBC (Bld) 67.2 % [place] Platelet mean volume (Bld) [Entitic vol] 6.8 fL 5 - 10.5 fL [place], [place] Platelets (Bld) [#/Vol] 372 10*3/uL 135 - 450 K/uL [place] RBC (Bld) [#/Vol] 4.07 10*6/uL [place] WBC (Bld) [#/Vol] 6.7 10*3/uL 4 - 11 K/uL [place] Performed at: [facility] [address] [place] [id number] [place], [place] CT ABDOMEN PELVIS W IV CONTR AST Additional Contrast? Noneon 02-10-2020 [place], [facility] Incoming Radiology Results From [facility] - 02/10/2020 8:52 PM EDT EXAM: CT ABDOMEN AND PELVIS WITH CONTRAST INDICATION: large volume BRBPR, suspect diverticular bleed COMPARISON: July 14, 2014 TECHNIQUE: Axial CT imaging obtained from lung bases through pelvis. Axial images and multiplanar reformatted images are provided for review. Individualized dose optimization technique was used in order to meet ALARA standards for radiation dose reduction. In addition to vendor specific dose reduction algorithms, the dose reduction techniques vary based on the specific scanner utilized but frequently include automated exposure control, adjustment of the mA and/or kV according to patient size, and use of iterative reconstruction technique. IV Contrast: 80 mL Isovue-370 Oral Contrast: None FINDINGS: LUNG BASES: Clear. LIVER: Normal. GALLBLADDER AND BILIARY TREE: Prior cholecystectomy. Stable mild prominence of the intrahepatic biliary tree likely physiologic given the prior cholecystectomy. PANCREAS: Normal. SPLEEN: Normal. ADRENAL GLANDS: Normal. KIDNEYS AND URETERS: No hydronephrosis. Normal enhancement. No urolithiasis. URINARY BLADDER: Normal. REPRODUCTIVE ORGANS: 2.5 cm hypodense cystic focus within the right ovary most likely a dominant follicle given its small size. Uterus and left ovary unremarkable. BOWEL: Prior gastrojejunostomy again noted. Large and small bowel nondilated without obstruction. No significant diverticulosis of the colon. No bowel wall thickening or surrounding inflammatory fat stranding. LYMPH NODES: No abnormally enlarged nodes. PERITONEUM/RETROPERITO NEUM: No ascites or free air. VESSELS: Aorta is normal caliber and proximal branch vessels are patent. The inferior vena cava, hepatic veins and portal venous system are patent. ABDOMINAL WALL: Normal. BONES: No destructive process. IMPRESSION: 1. No acute intra-abdominopelvic abnormality. [place], [place] EXAM: CT ABDOMEN AND PELVIS WITH CONTRAST INDICATION: large volume BRBPR, suspect diverticular bleed COMPARISON: July 14, 2014 TECHNIQUE: Axial CT imaging obtained from lung bases through pelvis. Axial images and multiplanar reformatted images are provided for review. Individualized dose optimization technique was used in order to meet ALARA standards for radiation dose reduction. In addition to vendor specific dose reduction algorithms, the dose reduction techniques vary based on the specific scanner utilized but frequently include automated exposure control, adjustment of the mA and/or kV according to patient size, and use of iterative reconstruction technique. IV Contrast: 80 mL Isovue-370 Oral Contrast: None FINDINGS: LUNG BASES: Clear. LIVER: Normal. GALLBLADDER AND BILIARY TREE: Prior cholecystectomy. Stable mild prominence of the intrahepatic biliary tree likely physiologic given the prior cholecystectomy. PANCREAS: Normal. SPLEEN: Normal. ADRENAL GLANDS: Normal. KIDNEYS AND URETERS: No hydronephrosis. Normal enhancement. No urolithiasis. URINARY BLADDER: Normal. REPRODUCTIVE ORGANS: 2.5 cm hypodense cystic focus within the right ovary most likely a dominant follicle given its small size. Uterus and left ovary unremarkable. BOWEL: Prior gastrojejunostomy again noted. Large and small bowel nondilated without obstruction. No significant diverticulosis of the colon. No bowel wall thickening or surrounding inflammatory fat stranding. LYMPH NODES: No abnormally enlarged nodes. PERITONEUM/RETROPERITO NEUM: No ascites or free air. VESSELS: Aorta is normal caliber and proximal branch vessels are patent. The inferior vena cava, hepatic veins and portal venous system are patent. ABDOMINAL WALL: Normal. BONES: No destructive process. [place] 1. No acute intra-abdominopelvic abnormality. [place] Hepatic Function Panelon Albumin [Mass/Vol] 4.3 g/dL 3.4 - 5 g/dL [place] ALP [Catalytic activity/Vol] 58 U/L 40 - 129 U/L [place] ALT [Catalytic activity/Vol] 8 U/L Low 10 - 40 U/L [place] AST [Catalytic activity/Vol] 29 U/L 15 - 37 U/L [place] Comment on above: Specimen hemolysis h as exceeded the interference as defined by Tim. Value may be falsely increased. Suggest recollection if clinically indicated. Bilirubin Ql (U) <0.2 0 - 1 mg/dL [place], [place] Bilirubin, Indirect see below 0 - 1 mg/dL [place] Comment on above: Indirect Bilirubin c annot be calculated since Total Bilirubin and/or Direct Bilirubin is below measurable range. Bilirubin.direct [Mass/Vol] mg/dL 0 - 0.3 mg/dL [place] Comment on above: Specimen hemolysis h as exceeded the interference as defined by Tim. Value may be falsely increased. Suggest recollection if clinically indicated. Interpretation and review of laboratory results Abnormal [place] Protein [Mass/Vol] 7.5 g/dL 6.4 - 8.2 g/dL [place] Lipaseon 02-10-2020 Lipase [Catalytic activity/Vol] 30.0 U/L 13 - 60 U/L [place] Otheron 02-10-2020 Performed at: [facility] [address] [place] [id number] [place] Performed at: [facility] [address] [place] [id number] [place], [place] , urineon 0 Beta HCG ( test) Ql (U) Negative Detects HCG level >20 MIU/mL [place] Comment on above: Note: Always repeat results in question with a serum quantitative test. A serum hCG is positive 2-5 days before the urine hCG test. Performed at: [facility] [address] [place] [id number] [facility] [place] Protime-INRon 02-10-2020 INR Coag (PPP) [Relative time] 0.84 {INR} Low [facility], [place] Comment on above: Effective 06/12/19 a t 09:00am EST Normal: 0.86 - 1.14 Therapeutic: 2.0 - 3.0 Pros. Valve: 2.5 - 3.5 AMI: 2.0 - 3.0 Interpretation and review of laboratory results Abnormal [place] PT Coag (PPP) [Time] 9.7 s Low [facility], [place] Comment on above: Effective 06-12-19 0 9:00am EST Please note reference ranges have changed for PT and INR Testing. TYPE AND SCREENon 02-10-2020 ABO/Rh Negative [facility], [place] Performed at: [facility] [address] [place] [id number] [place] Urinalysis Reflex to Culture on 02-10-2020 Bilirubin Urine Negative Negative [facility] [place], [place] Blood, Urine Negative Negative [facility], [place] Clarity, UA Clear Clear [facility], [place] Color, UA Yellow Straw/Yellow [facility], [place] Glucose, Ur Negative Negative mg/dL [place] Ketones Ql (U) Negative Negative mg/dL [place] Leukocyte esterase Test strip Ql (U) Negative Negative [facility], [place] Microscopic Examination Not Indicated [facility], [place] Nitrite, Urine Negative Negative [facility]- [place], [place] pH, UA 6.0 [facility], [place] Protein (U) [Mass/Vol] Negative Negative mg/dL [facility] [place], [place] Specific [place], UA 1.010 [facility]- [place], [place] Urine Reflex to Culture Not Indicated [facility], [place] Urine Type Other [facility], [place] Urobilinogen, Urine 0.2 <2.0 E.U./dL [facility]- [place], [place] Performed at: [facility] [address] [place] [id number] [place] Vital Signs Date Time Vital Sign Value Performing Clinician Thelma jacob 02-07-2023 13:50-0400 Body temperature 97.7 [degF] Jamshid Andrade [facility] 02-07-2023 13:50-0400 Diastolic blood pressure 73 mm[Hg] Jamshid Andrade [facility] 02-07-2023 13:50-0400 Heart rate 79 /min Jamshidrody Andrade [facility] 02-07-2023 13:50-0400 Respiratory rate 18 /min Jamshid Andrade [facility] 02-07-2023 13:50-0400 SaO2% (BldA) [Mass fraction] 100 % Jamshid Andrade [facility] 02-07-2023 13:50-0400 Systolic blood pressure 116 mm[Hg] Jamshidrody Andrade [facility] 07-08-2022 21:03-0500 Diastolic blood pressure 65 mm[Hg] Jose C Goetz MD Work Phone: [facility] 07-08-2022 21:03-0500 Heart rate 76 /min Jose C Goetz MD Work Phone: [facility] 07-08-2022 21:03-0500 Respiratory rate 14 /min Jose C Goetz MD Work Phone: [facility] 07-08-2022 21:03-0500 SaO2% (BldA) [Mass fraction] 97 % Jose C Goetz MD Work Phone: [facility] 07-08-2022 21:03-0500 Systolic blood pressure 99 mm[Hg] Jose C Goetz MD Work Phone: [facility] 07-08-2022 17:12-0500 Body temperature 95.9 [degF] Jose C Goetz MD Work Phone: [facility] 02-10-2020 16:03-0400 BMI (Body Mass Index) 23.24 kg/m2 [facility] [place] [place] 02-10-2020 16:03-0400 Body Temperature 98.2 [degF] Ángel Wallace [facility] 02-10-2020 16:03-0400 Body weight 65.32 kg [facility] , [place] 02-10-2020 16:03-0400 BP Diastolic 90 mm[Hg] [facility] , [place] 02-10-2020 16:03-0400 BP Systolic 130 mm[Hg] [facility] , [place] 02-10-2020 16:03-0400 Height 167.6 cm [facility] , [place] 02-10-2020 16:03-0400 Pulse (Heart Rate) 90 /min Ángel Rodrigo [facility], [place] 02-10-2020 16:03-0400 Pulse Oximetry 100 % [facility] , [place] 02-10-2020 16:03-0400 Respiratory Rate 16 /min [facility] , [place] Encounters Encounter Date Encounter Type Care Provider Facility Start: 02-29-2024 End: 02-29-2024 ambulatory [facility] Start: 02-29-2024 End: 02-29-2024 Encounter for preprocedural laboratory examination [facility]RI [facility] Start: 02-20-2024 End: 02-20-2024 ambulatory HENRI [facility] Start: 02-09-2024 [facility]: 02-09-2024 End: 02-10-2024 [facility] Start: 06-06-2023 End: 06-06-2023 ambulatory CARMEN GARCIA [facility] Start: 05-02-2023 Evaluation and management of inpatient JODI OWENS [facility] Start: 05-02-2023 Evaluation and management of inpatient JODI OWENS [facility] Start: 04-30-2023 Emergency department patient visit DODIE AG [facility] Start: 04-30-2023 End: 05-03-2023 Evaluation and management of inpatient PAWEL CABELLO [facility] Start: 03-23-2023 End: 03-23-2023 Emergency department patient visit ELISA [facility] Start: 02-09-2023 End: 02-10-2023 ambulatory Grecia Bullard Facility:[facility] Start: 02-07-2023 End: 02-07-2023 Emergency department patient visit Jamshid Andrade Facility:[facility] Start: 02-07-2023 End: 02-07-2023 Emergency department patient visit Jamshid Andrade [facility] Start: 12-31-2022 ambulatory Rosalia OLMEDO Facilit y:[facility] Start: 12-31-2022 ambulatory Grecia Bullard Facilit y:[facility] Start: 12-06-2022 End: 12-06-2022 ambulatory KELLEN DODSON . Facility: Start: 07-08-2022 End: 07-08-2022 Emergency department patient visit Jose C Goetz MD Work Phone: [facility] Comment on above: Opiate overdose, acc idental or unintentional, initial encounter (HCC) (Primary Dx) Start: 04-15-2022 End: 04-15-2022 Subsequent hospital visit by physician Maxwell Stress Echo Rm Schedule [facility] Comment on above: Opioid use disorder Start: 02-10-2020 End: 02-10-2020 Emergency department patient visit Ángel Wallace Work Phone: [facility] Comment on above: Rectal bleeding (Clarita sedrick Dx) Start: 09-14-2017 Ambulatory SELF SELF [facility] Procedures Date Procedure Procedure Detail Performing Clinician Start: 07-08-2022 End: 07-08-2022 Basic metabolic panel calcium total Jose C Goetz MD Work Phone: Start: 07-08-2022 Blood gases any comb ination ph pco2 po2 co2 hco3 Jose C Goetz MD Work Phone: Start: 07-08-2022 SPECIMEN REJECTION Nate Goetz MD Work Phone: Start: 07-08-2022 Assay of acetaminophen Jose C Goetz MD Work Phone: Start: 07-08-2022 Assay of ethanol Solo Goetz MD Work Phone: Start: 07-08-2022 Assay of salicylate Allan Goetz MD Work Phone: Start: 07-08-2022 End: 07-08-2022 Assay of troponin quantitative Jose C Goetz MD Work Phone: Start: 07-08-2022 BASIC METABOLIC PANE L W/ REFLEX TO MG FOR LOW K Jose C Goetz MD Work Phone: Start: 07-08-2022 Blood gases any comb ination ph pco2 po2 co2 hco3 Jose C Goetz MD Work Phone: Start: 07-08-2022 Hepatic function panel Jose C Goetz MD Work Phone: Start: 07-08-2022 Radiologic exam ches t single view Jose C Goetz MD Work Phone: Start: 07-08-2022 Ecg routine ecg w/le ast 12 lds w/i&r Jose C Goetz MD Work Phone: Start: 04-15-2022 Stress echocardiography Rufina Case Work Phone: Start: 02-10-2020 Antibody screen Ángel Mo rgan Start: 02-10-2020 Ct abdomen & pelvis w/contrast material Jud Graff Work Phone: Start: 02-10-2020 Assay of lipase Jud Graff Work Phone: Start: 02-10-2020 BASIC METABOLIC PANE L W/ REFLEX TO MG FOR LOW K Jud Graff Work Phone: Start: 02-10-2020 Blood count complete auto&auto difrntl wbc Jud Graff Work Phone: Start: 02-10-2020 Blood typing serologic abo Jud Graff Work Phone: Start: 02-10-2020 Hepatic function panel Jud Graff Work Phone: Start: 02-10-2020 Prothrombin time Jud Graff Work Phone: Start: 02-10-2020 Thromboplastin time partial plasma/whole blood Jud Graff Work Phone: Start: 02-10-2020 Urine test visual color cmprsn meths Ángel Wallace Work Phone: Start: 02-10-2020 Urnls dip stick/tabl et rgnt auto w/o microscopy Ángel Wallace Work Phone: Start: 10-07-2014 Microscopic observat ion [Identifier] in Cervix by Cyto stain Tjhz Schedule Plan of Treatment Date Care Activity Detail Author Start: 12-31-2024 DTaP/Tdap/Td vaccine (2 - Td or Tdap) DTaP/Tdap/Td vaccine (2 - Td or Tdap) [facility] Start: 12-31-2024 DTaP/Tdap/Td vaccine (2 - Td) DTaP/Tdap/Td vaccine (2 - Td) [place] Start: 03-25-2022 Influenza vaccination Flu vaccine (# 1) [facility] Start: 02-22-2022 Influenza vaccination Flu vaccine (# 1) [facility] Start: 2022 Screening for malign ant neoplasm of colon [facility] Start: 03-25-2020 Influenza vaccination Flu vaccine (# 1) [place] Start: 10-07-2017 Screening for malign ant neoplasm of cervix [facility] Start: 2017 Lipid panel [facility] Start: 2007 Screening for malign ant neoplasm of cervix HPV (without or with Pap) [facility] [employer] Start: 01-27-1992 HIV screening HIV screen [facility] [employer] Start: 1989 Depression Screen Depression Screen [facility] [employer] Start: 1975 COVID-19 Vaccine (#1) COVID-19 Vacci ne (#1) [facility] [employer] End: 02-10-2020 POCT BLOOD OCCULT POCT BLOOD OCCULT Point of Care Testing STAT One Time for 1 Occurrences starting 02/10/2020 until 02/10/2020 [facility] [place], [place] Comment on above: One Time for 1 Occur rences starting 02/10/2020 until 02/10/2020 End: 07-08-2022 Urinalysis with Reflex to Culture Urinalysis with Reflex to Culture Lab STAT One Time for 1 Occurrences starting 07/08/2022 until 07/08/2022 [facility] Phone: Comment on above: One Time for 1 Occur rences starting 07/08/2022 until 07/08/2022 End: 07-08-2022 Urine Drug Screen Urine Drug Screen Lab STAT One Time for 1 Occurrences starting 07/08/2022 until 07/08/2022 [facility] [employer] Phone: Comment on above: One Time for 1 Occur rences starting 07/08/2022 until 07/08/2022 End: 07-08-2022 Urine Preg (Lab) Urine Preg (Lab) Lab STAT One Time for 1 Occurrences starting 07/08/2022 until 07/08/2022 [facility] Phone: Comment on above: One Time for 1 Occur rences starting 07/08/2022 until 07/08/2022 Payers Date Payer Category Payer Private Health Insurance [id number] 2023 Medicaid [id number] 2021 Private Health Insurance [id number] 2015 Unknown [id number] 1975 Unknown [id number] 1975 Unknown [id number] 1975 Unknown [id number] 1975 Unknown [id number] 1975 Unknown [id number] 1959 Unknown [id number] Social History Date Type Detail Facility Start: 02-10-2020 Tobacco smoking stat [facility] Former smoker [facility] End: 03-18-2014 History of tobacco use [place] Start: 02-10-2020 Cigarettes smoked current (pack per day) - Reported [place] Start: 02-10-2020 Tobacco use and exposure Never used [place] Start: 02-10-2020 End: 04-23-2020 Alcohol intake Current non-drinker of alcohol (finding) [place] Start: 10-07-2014 Tobacco Comment cessation 10/06 [place] Start: 1975 Sex Assigned At Not on file [place] Start: 06-28-2022 End: 07-08-2022 Exposure to SARS-CoV-2 (event) Not sure [place] End: 03-18-2014 History of tobacco use [facility]igarette [facility] [employer] Work Phone: Tobacco [facility] Comment on above: denies Tobacco smoking status No Smokin g Status Entered [facility] Sex Assigned At Female [facility] Functional Status Date Assessment Result Facility 02-07-2023 Functional Status N/A [facility] Clinical Notes 07-08-2022 to 02-29-2024 Discharge InstructionsAttachments Note Date & Type Note Facility 02-29-2024 Note Patient: Conrad Gonzalez Procedure Summary Date: 02/29/24 Room / Location: [facility] Anesthesia Start: 1210 Anesthesia Stop: 1243 Procedure: EGD Diagnosis: Perforated duodenal ulcer (CMS/HCC) Peptic ulcer Scheduled Providers: Maritza Eric MD; MARIAN Peters; Henri Funk MD Responsible Provider: Maritza Eric MD Anesthesia Type: MAC ASA Status: 3 Anesthesia Type: MAC Vitals Value Taken Time BP 112/82 02/29/24 1300 Temp 36.6 ???C (97.9 ???F) 02/29/24 1240 Pulse 62 02/29/24 1300 Resp 21 02/29/24 1300 SpO2 99 % 02/29/24 1300 Anesthesia Post Evaluation Patient location during evaluation: PACU Patient participation: complete - patient participated Level of consciousness: awake Pain score: 0 Pain management: adequate Airway patency: patent Cardiovascular status: acceptable Respiratory status: acceptable Patient is hemodynamically stable and is able to be discharged from PACU per anesthesia protocol. No notable events documented. [facility] 02-29-2024 Note Patient: Conrad Gonzalez Procedure Summary Date: 02/29/24 Room / Location: [facility] Anesthesia Start: 1210 Anesthesia Stop: Procedure: EGD Diagnosis: Perforated duodenal ulcer ([facility]/HCC) Peptic ulcer Scheduled Providers: Maritza Eric MD; MARIAN Peters; Henri Funk MD Responsible Provider: Maritza Eric MD Anesthesia Type: MAC ASA Status: 3 Anesthesia Post Transport Note Transport to: [place] PACU O2 Route: room air Patient Monitor: direct observation Transport: uneventful Patient condition is: stable [facility] 02-29-2024 Note Patient: Conrad Gonzalez Procedure Information Date/Time: 02/29/24 1215 Scheduled providers: Maritza Eric MD; MARIAN Peters; Henri Funk MD Procedure: EGD Location: [facility] Past Medical History: Diagnosis Date Anemia Anxiety Asthma Drug abuse, cocaine type ([facility]/HCC) Drug abuse, opioid type ([facility]/HCC) Gastric ulcer Gastroparesis Lupus ([facility]/HCC) Panic attack Peptic ulcer disease Thrombus Relevant Problems GI (+) Peptic ulcer disease (+) Perforated peptic ulcer ([facility]/HCC) Pulmonary (+) Asthma Clinical information reviewed: Tobacco Allergies Meds Med Hx Surg Hx OB Status Fam Hx Soc Hx Physical Exam Airway Mallampati: II TM distance: >3 FB Neck ROM: full Cardiovascular - normal exam Dental - normal exam Pulmonary - normal exam Abdominal - normal exam Anesthesia Plan ASA 3 MAC The patient is not a current smoker. Patient was not previously instructed to abstain from smoking on day of procedure. Patient did not smoke on day of procedure. intravenous induction Anesthetic plan and risks discussed with patient. Plan discussed with CAA. Additional Equipment Requests [facility] 02-20-2024 Note Attestation signed by Henri Funk MD at 02/20/2024 1:45 PM GC: I saw this patient. I personally performed the critical/navarro portions that determines the level of service. I was directly involved in the management and treatment plan of the patient. I reviewed fellow Keeley Byers 's note and agree with the documentation [facility] Gastroenterology Follow-Up Patient Visit CHIEF COMPLAINT Chief Complaint Patient presents with Hospital Follow-up Gastroparesis Dysmotility HISTORY OF PRESENT ILLNESS: A 49-year-old female with a medical history of lupus and multiple abdominal surgeries presented with complaints of abdominal pain. She recently visited the ER at [facility] due to ongoing symptoms of vomiting, diarrhea, and blood in her stool, which have been present for two weeks. She expressed concern that her symptoms might be due to a previous perforated ulcer, as the pain feels similar. She is currently taking Protonix twice a day and describes the abdominal pain as a burning sensation. She also recently tested positive for COVID-19 and reportedthat the blood in her stool is occasionally bright red but sometimes dark. Her surgical history includes treatment for a perforated peptic ulcer witha Jaleel patch, followed by Billroth II and Claudia-en-Y procedures. Today, she complained of worsening acid reflux, which exacerbates her COVID-related sore throat, along with abdominal pain and intermittent episodes of melena and bright red blood per rectum. We discussed the necessity of scheduling an EGD as soon as possible to evaluate her symptoms further. She was advised to seek emergency care if symptoms persist and to start taking omeprazole 20 mg twice daily, in addition to continuing sucralfate. The EGD order will be placed, and we will follow up with the patient after the procedure. PREVIOUS LABS/IMAGING/ENDOSCOPY: Colonoscopy was performed which revealed: Normal distal terminal ileum Diminutive ascending colon polyp removed using a cold snare No endoscopic evidence of colitis. Random biopsies obtained to rule out microscopic colitis. EGD 05/02/2023: The gastroscope was inserted into the mouth and advanced under direct vision to second portion of the duodenum. A careful inspection was made as the gastroscope was withdrawn, including a retroflexed view of the proximal stomach; findings and interventions are described below. Appropriate photodocumentation was obtained. CT abdomen pelvis with out contrast 05/01/2023: *No acute abdominopelvic process. *Eccentric filling defect in the distal portal vein which extends distally into the superior mesenteric vein, morphology suggestive of chronic venous thrombus versus mixing of noncontrast blood with contrast filled in portal vein. EGD 2018 with mild ulceration and narrowing at the gastrojejunal anastomosis S/P 15 mm balloon dilation with balloon. 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 SOCIAL HISTORY: Social History Tobacco Use Smoking status: Never Smokeless tobacco: Never Vaping Use Vaping Use: Never used Substance Use Topics Alcohol use: Never Drug use: Never ALLERGIES: Amoxicillin, Codeine, Terbinafine, and Penicillins Current Medications: Current Outpatient Medications: albuterol 90 mcg/actuation inhaler, , Disp: , Rfl: clonazePAM (KlonoPIN) 1 mg tablet, Take 1 mg by mouth in the morning, at noon, and at bedtime., Disp: , Rfl: etonogestrel-eluting contraceptive (Nexplanon) 68 mg contraceptive implant, Inject 68 mg under the skin., Disp: , Rfl: folic acid (Folvite) 1 mg tablet, , Disp: , Rfl: HYDROcodone-acetaminophen (Hoquiam) 5-325 mg tablet, , Disp: , Rfl: hydroxychloroquine (Plaquenil) 200 mg tablet, Take 200 mg (more content not included)... [facility] 06-06-2023 Note Patient: Conrad Gonzalez Procedure Information Anesthesia Start Date/Time: 06/06/23 1048 Scheduled providers: Di Amaya MD; Sergey Wood MD; Mike Mosley CRNA Procedure: EGD Location: [facility] [place] Main OR Relevant Problems Anesthesia (-) History of anesthesia complications Past Medical History: Diagnosis Date ??? Gastric ulcer ??? Lupus (CMS/HCC) Clinical information reviewed: Tobacco Allergies Meds Med Hx Surg Hx OB Status Fam Hx Soc Hx Physical Exam Airway Mallampati: III TM distance: >3 FB Neck ROM: full Cardiovascular Rhythm: regular Rate: normal Dental Pulmonary Breath sounds clear to auscultation Abdominal Anesthesia Plan ASA 3 MAC (Plan Monitored Anesthesia Care (MAC) with backup general anesthesia if needed. Patient was interviewed and evaluated prior to the start of the anesthetic. Note was inputted later.) intravenous induction Anesthetic plan and risks discussed with patient. 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 Additional Equipment Requests [facility] 06-06-2023 Note Patient: Conrad Gonzalez Procedure Summary Date: 06/06/23 Room / Location: [facility] Main OR Anesthesia Start: 1048 Anesthesia Stop: 1112 Procedure: EGD Diagnosis: Gastric ulcer without hemorrhage or perforation, unspecified chronicity Scheduled Providers: Di Amaya MD; Sergey Wood MD; Mike Mosley CRNA Responsible Provider: Sergey Wood MD Anesthesia Type: MAC ASA Status: Not recorded Anesthesia Type: MAC Vitals Value Taken Time BP 104/74 06/06/23 1140 Temp 36.2 ???C (97.2 ???F) 06/06/23 1140 Pulse 57 06/06/23 1140 Resp 16 06/06/23 1140 SpO2 98 % 06/06/23 1140 Anesthesia Post Evaluation Patient location during evaluation: PACU Patient participation: complete - patient participated Level of consciousness: awake Pain management: adequate Cardiovascular status: acceptable Respiratory status: acceptable Hydration status: acceptable Comments: Patient was evaluated for PACU discharge prior to leaving. Note was inputted later. Patient is hemodynamically stable and is able to be discharged from PACU per anesthesia protocol. No notable events documented. [facility] 06-06-2023 Note Patient: Conrad Gonzalez Procedure Summary Date: 06/06/23 Room / Location: [facility] Main OR Anesthesia Start: 1047 Anesthesia Stop: Procedure: EGD Diagnosis: Gastric ulcer without hemorrhage or perforation, unspecified chronicity Scheduled Providers: Di Amaya MD; Sergey Wood MD; Mike Mosley CRNA Responsible Provider: Sergey Wood MD Anesthesia Type: MAC ASA Status: Not recorded Anesthesia [facility] Oxygen Flow (L/min): 8 Patient Monitor: direct observation Transport: uneventful Patient condition is: stable [facility] 05-05-2023 Note Patient: Conrad Gonzalez Procedure Summary Date: 05/02/23 Room / Location: [facility] Main OR Anesthesia Start: 1243 Anesthesia Stop: 1334 Procedures: EGD DIAGNOSTIC COLONOSCOPY Diagnosis: Abdominal pain, unspecified abdominal location Right lower quadrant abdominal pain Bloody diarrhea Scheduled Providers: Di Amaya MD; Abby Reyes MD; MARIAN Hamilton Responsible Provider: Abby Reyes MD Anesthesia Type: MAC ASA Status: 3 Anesthesia Type: MAC Vitals Value Taken Time BP 103/65 05/02/23 1408 Temp 36 ???C (96.8 ???F) 05/02/23 1408 Pulse 62 05/02/23 1408 Resp 16 05/02/23 1408 SpO2 100 % 05/02/23 1408 Anesthesia Post Evaluation Patient location during evaluation: bedside Patient participation: complete - patient participated Level of consciousness: awake and alert Pain score: 0 Pain management: adequate Airway patency: patent Cardiovascular status: acceptable Respiratory status: acceptable Hydration status: acceptable Patient is hemodynamically stable and is able to be discharged from PACU per anesthesia protocol. No notable events documented. [facility] 05-03-2023 Note Hospital Medicine Discharge Summary Final Discharge Diagnosis: Right lower quadrant abdominal pain Acute cystitis without hematuria Normocytic anemia Diarrhea, resolved Polysubstance abuse; benzo, TCA, cocaine and cannabinoids Lupus history PUD History of perforated gastric ulcer s/p Jaleel patch repair x2 Admission Diagnosis: Abdominal pain, unspecified abdominal location [R10.9] Urinary tract infection without hematuria, site unspecified [N39.0] Hospital course: Conrad Gonzalez is an 48 y.o. female who came from home with Extensive known past medical history of lupus, PUD, surgical history of perforated ulcer with Jaleel patch, cholecystectomy, presented to the hospital with abdominal pain, decreased appetite and nausea associated with bloating. Patient also complained of history of dysuria, nausea associated with her symptoms.She is also endorsed prior history of having rectal bleed in the past. Currently not on any blood thinners or otherwise. 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 Surgery team also saw the patient did not determine any surgical needs. Patient was also noted to have possible UTI ongoing with her symptoms. Vascular surgery started the patient on heparin gtt. and admission was requested under hospital medicine for optimization of care and management of UTI. Repeat CT with venous phase done which did not demonstrate any portal vein filling defects. Initial findings likely artifactual. Decision was made to discontinue all AC. Urine culture returned growing E. Coli susceptible to Keflex. She was transitioned. Colonoscopy was performed which revealed: Normal distal terminal ileum Diminutive ascending colon polyp removed using a cold snare No endoscopic evidence of colitis. Random biopsies obtained to rule out microscopic colitis. EGD revealed the following: Normal esophagus 3 cm hiatal hernia Surgical changes consisted with prior Bilroth II with gastrojejunostomy clean based anastomotic ulcer. S/P biopsies of anastomotic ulcer and random gastric biopsies. Normal efferent jejunal loop It was recommended she contineu omeprazole 40mg BID and sucralfate for 8 weeks. She needs to follow up pathology as an outpatient and have repeat EGD in 8 weeks. Dear ANN Angel Jamie is advised to follow up with you within 1-2 weeks. Follow-up with: Gastroenterology Scheduled appointments: No future appointments. Your medication list START taking these medications Instructions Last Dose Given Next Dose Due cefuroxime 250 mg tablet Commonly known as: Ceftin Take 1 tablet (250 mg) by mouth in the morning and at bedtime for 5 days. sucralfate 100 mg/mL suspension Commonly known as: Carafate Take 10 mL (1 g) by mouth every 6 (six) hours. CHANGE how you take these medications Instructions Last Dose Given Next Dose Due pantoprazole 40 mg EC tablet Commonly known as: ProtoNix What changed: when to take this Take 1 tablet (40 mg) by mouth before breakfast and before evening meal. Do not crush, chew, or split. CONTINUE taking these medications Instructions Last Dose Given Next Dose Due clonazePAM 1 mg tablet Commonly known as: KlonoPIN hydroxychloroquine 200 mg tablet Commonly known as: Plaquenil hydroxychloroquine 200 mg tablet Commonly known as: Plaquenil hydrOXYzine HCL 50 mg tablet Commonly known as: Atarax pilocarpine 5 mg tablet Commonly known as: Salagen promethazine 12.5 mg tablet Commonly known as: Phenergan SUMAtriptan 50 mg tablet Commonly known as: Imitrex Where to Get Your Medications These medications were sent to [facility] [id number] [facility] [address] [facility] [address] [facility] [address] cefuroxime 250 mg tablet pantoprazole 40 mg EC tablet sucralfate 100 mg/mL suspension Conrad is allergic to amoxicillin and penicillins. Disposition: Home or Self Care Discharge Condition: Stable Code Status: Full Code Diagnostic Results Hematology: Results from last 7 days Lab Units 05/03/23 0700 05/02/23 1747 05/02/23 0537 04/30/23 2212 04/30/23 0706 WBC AUTO 10*3/uL 5.14 -- 4.11 < > -- HEMOGLOBIN g/dL 11.7* 11.6* 11.7* < > -- HEMATOCRIT % 35.5* 36.9 36.2 < > -- MCV fL 86.6 -- 86.8 < > -- PLATELETS AUTO 10*3/uL 251 -- 264 < > 245 INR -- -- -- -- 1.12* < > = values in this interval not displayed. Chemistry: Results from last 7 days Lab Units 05/03/23 0700 05/02/23 0537 05/01/23 0607 04/30/23 0141 SODIUM mmol/L 135* 135* 135* 137 POTASSIUM mmol/L 3.6 3.9 4.1 4.3 CHLORIDE mmol/L 105 108* 108* 107 CO2 mmol/L 25 23 21 27 BUN mg/dL 9 7 7 11 CREATININE mg/dL 0.82 0.76 0.72 0.97 GLUCOSE mg/dL 133* 95 98 59* MAGNESIUM mg/dL -- 1.9 -- 2.0 CALCIUM mg/dL 8.8 7.9* 7.2* 8.8 Results from last 7 days Lab Units 04/30/23 0141 AST (more content not included)... [facility] 05-03-2023 Note Gastroenterology/Hep atology Progress Note IDENTIFYING DATA PATIENT: Conrad Gonzalez ADMIT DATE: 04/30/2023 TIME OF EVALUATION: 05/03/2023 8:30 AM Reason for Consult: Abdominal pain Admitting Physician: Tyra Lux MD SUBJECTIVE/INTERVAL HISTORY Conrad Gonzalez's overnight events were reviewed. EGD and colonoscopy completed yesterday. EGD revealing for 3 cm hiatal hernia and gastrojejunostomy clean based anastomotic ulcer, biopsies were obtained. Colonoscopy was unremarkable other than a diminutive ascending colon polyp, biopsies were obtained. Today patient reports no further nausea, vomiting, or hematochezia. Abdominal pain is improving and she is tolerating a regular diet. Hemoglobin is stable at 11.7. OBJECTIVE MEDICATIONS SCHEDULED: hydroxychloroquine, 100 mg, oral, q PM hydroxychloroquine, 200 mg, oral, Daily hydrOXYzine HCL, 50 mg, oral, BID pantoprazole, 40 mg, oral, BID AC pilocarpine, 5 mg, oral, BID polyethylene glycol, 17 g, oral, Daily sucralfate, 1 g, oral, q6h ELLIS PRNs: clonazePAM, 0.5 mg, BID PRN oxyCODONE-acetaminophen, 1 tablet, q8h PRN promethazine, 12.5 mg, BID PRN Physical VITALS: BP 91/58 Pulse 68 Temp 36.7 ???C (98.1 ???F) (Temporal) Resp 14 Ht 1.676 m (5' 6 ) Wt 69.1 kg (152 lb 4.8 oz) SpO2 97% BMI 24.58 kg/m??? GEN: Alert and oriented x3, NAD CV: Regular rate and rhythm PULM: Breathing comfortably ABD: Soft, non-tender, non-distended NEURO: Moves all visualized extremities spontaneously LABS AND IMAGING CBC: Results from last 7 days Lab Units 05/03/23 0700 05/02/23 1747 05/02/23 0537 05/01/23 1812 05/01/23 0607 WBC AUTO 10*3/uL 5.14 -- 4.11 -- 3.86* RBC AUTO 10*6/uL 4.10 -- 4.17 -- 3.77* HEMOGLOBIN g/dL 11.7* 11.6* 11.7* < > 10.7* HEMATOCRIT % 35.5* 36.9 36.2 < > 34.1* MCV fL 86.6 -- 86.8 -- 90.5 RDW % 13.1 -- 13.2 -- 13.2 PLATELETS AUTO 10*3/uL 251 -- 264 -- 208 < > = values in this interval not displayed. PT/INR Results from last 7 days Lab Units 04/30/23 0706 PROTIME Seconds 14.4 INR 1.12* BMP: Results from last 7 days Lab Units 05/02/23 0537 05/01/23 0607 04/30/23 0141 SODIUM mmol/L 135* 135* 137 POTASSIUM mmol/L 3.9 4.1 4.3 CHLORIDE mmol/L 108* 108* 107 BUN mg/dL 7 7 11 CREATININE mg/dL 0.76 0.72 0.97 EGFR mL/min/1.73m*2 97.8 104.4 73.0 GLUCOSE mg/dL 95 98 59* LFTs: Results from last 7 days Lab Units 04/30/23 0141 BILIRUBIN TOTAL mg/dL 0.3 BILIRUBIN DIRECT mg/dL 0.0 ALK PHOS U/L 49 AST U/L 18 ALT U/L 9 ALBUMIN g/dL 3.9 TOTAL PROTEIN g/dL 6.2 B12/Folate/Iron studies: No results found for: [id number], FOLATE, IRON, TIBC, UIBC, IRONSAT, FERRITIN Viral Hepatitis No results found for: HEPAIGM, HAV, HEPBSAG, HEPBSAB, HEPBEAB, HEPBIGM, HEPBCAB, HEPBCOREAB, HBVNAT, HCVSCR, HEPCAB, HCVNAT, HCVPCR, HCVTMA Liver workup No results found for: BLAS, SMOOTHMUSCAB, CERULOPLSM, [id number], TTGA, IGA, TSH, FREET4, AFP Pancreatitis Lab Results Component Value Date CALCIUM 7.9 (L) 05/02/2023 IMAGING: CT abdomen pelvis with out contrast 05/01/2023: FINDINGS: Mild bibasilar dependent atelectasis. No pleural or pericardial effusions. No intra-abdominal free air or free fluid. Mild degree of intra-/extrahepatic biliary ductal dilatation. Likely reservoir effect in the setting of prior cholecystectomy. Noncirrhotic liver morphology with no focal hepatic lesion identified. Spleen, pancreas, and adrenal glands appear unremarkable. The kidneys, ureters, and urinary bladder appear unremarkable. No evidence of obstructive uropathy. No pelvic free fluid. The uterus appears unremarkable. Possible involuting follicle present in the right adnexa measuring up to 1.4 cm (coronal image 22). The small bowel, large bowel, and appendix appear unremarkable. Evidence of prior gastric bypass surgery and small bowel anastomosis No abdominal or pelvic lymphadenopathy. Nonaneurysmal abdominal aorta. The IVC is right-sided. Eccentric filling defect in the distal portal vein, which extends into the superior mesenteric vein, morphology suggestive of chronic venous thrombus versus mixing of noncontrast blood with the contrast in the SMV and portal vein. Degenerative endplate changes and vacuum disc phenomena at L2-L3. No acute osseous abnormality. IMPRESSION: *No acute abdominopelvic process. *Eccentric filling defect in the distal portal vein which extends distally into the superior mesenteric vein, morphology suggestive of chronic venous thrombus versus mixing of noncontrast blood with contrast filled in portal vein. EGD 05/02/2023: Procedure: EGD with biopsies Indications: Abdominal pain. Patient has hx of gastric ulcer perforations s/p antrectomy with Bilroth II anastomosis and subsequent Jaleel patch closure in 2013. CT abdomen un remarkable except prior gastric bypass changes Sedation: MAC Attending Physician: Di Amaya MD Proc (more content not included)... [facility] 05-02-2023 Note 05/02/23 1601 Referral Data Referral Source lock up worker Activities of Daily Living Living Arrangement (Current/Prior to Hospitalization) Private residence Behavior Oriented Communication Talks;Understands speaking;Understands Syrian Discharge Planning Support Systems Spouse/significant other Type of Residence/Post Acute Needs Private residence Patient's goal for discharge Patient's goal for discharge is to return home. Evs Manager met with patient at the bedside to discuss discharge plans. Patient anticipates returning home when medically ready. No further OTM needs at this time. [facility] 05-02-2023 Note Patient: Conrad Gonzalez Procedure Summary Date: 05/02/23 Room / Location: [facility] [place] Main OR Anesthesia Start: 1243 Anesthesia Stop: Procedures: EGD DIAGNOSTIC COLONOSCOPY Diagnosis: Abdominal pain, unspecified abdominal location Right lower quadrant abdominal pain Bloody diarrhea Scheduled Providers: Di Amaya MD; Abby Reyes MD; MARIAN Hamilton Responsible Provider: Abby Reyes MD Anesthesia Type: MAC ASA Status: 3 Anesthesia Post Transport Note Transport to: PACU O2 Route: room air Patient Monitor: direct observation Transport: uneventful Patient condition is: stable [facility] 05-02-2023 Note Hospital Medicine Daily Progress Note - 05/02/2023 9:00 AM; Room: [address] [place] [address] Admission: 04/30/2023 12:28 AM; Length of stay: 2 days THE HOSPITALIST TEAM PREFERS TO USE [employer] CHAT FOR COMMUNICATION 7AM-7PM. IF I DO NOT RESPOND WITHIN 15 MINUTES, PLEASE PAGE ME/CALL THROUGH THE [employer] INSTALLER HELPER. FROM 7PM-7AM, PLEASE PAGE [phone](COVR) Code Status: Full Code Discharge Destination: home Discharge planning: EGD and colonoscopy today with GI Overview Patient is seen for evaluation and management of abdominal pain. Subjective Patient assessed at bedside, denies any chest pain or shortness of breath. Denies any worsening abdominal pain. Physical Exam Visit Vitals BP 114/75 (BP Location: Right arm, Patient Position: Lying) Pulse 72 Temp 37 ???C (98.6 ???F) (Temporal) Resp 15 Intake/Output Summary (Last 24 hours) at 05/02/2023 0900 Last data filed at 05/02/2023 0642 Gross per 24 hour Intake 2664.96 ml Output 300 ml Net 2364.96 ml Physical Exam Vitals reviewed. Constitutional: General: She is awake. She is not in acute distress. Appearance: Normal appearance. She is not ill-appearing. Cardiovascular: Rate and Rhythm: Normal rate and regular rhythm. Pulses: Radial pulses are 2+ on the right side and 2+ on the left side. Dorsalis pedis pulses are 2+ on the right side and 2+ on the left side. Heart sounds: Normal heart sounds. Pulmonary: Effort: Pulmonary effort is normal. No tachypnea, accessory muscle usage or respiratory distress. Breath sounds: Normal breath sounds. Abdominal: General: Bowel sounds are normal. There is no distension. Palpations: Abdomen is soft. Tenderness: There is no abdominal tenderness. Musculoskeletal: Right lower leg: No edema. Left lower leg: No edema. Skin: General: Skin is warm and dry. Neurological: Mental Status: She is alert and oriented to person, place, and time. Mental status is at baseline. Psychiatric: Attention and Perception: Attention normal. Mood and Affect: Mood normal. Speech: Speech normal. Behavior: Behavior is cooperative. Cognition and Memory: Cognition normal. Estimated body mass index is 23.97 kg/m??? as calculated from the following: Height as of this encounter: 1.676 m (5' 6 ). Weight as of this encounter: 67.4 kg (148 lb 8 oz). 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 Acute cystitis without hematuria Normocytic anemia Diarrhea, resolved Polysubstance abuse; benzo, TCA, cocaine and cannabinoids Lupus history PUD History of perforated gastric ulcer s/p Jaleel patch repair x2 Continue vitals per unit protocol Vascular surgery consulted, recommend heparin drip for thrombus with CT A/P today General surgery signed off Continue Rocephin for UTI, culture pending Stool studies pending GI planning EGD/colonoscopy today, hold heparin drip 6 hours prior to procedure Patient is tolerating intake, DC fluids Nutrition Screen VTE Prophylaxis: IV heparin Scheduled Meds cefTRIAXone, 1 g, intravenous, q24h hydroxychloroquine, 100 mg, oral, q PM hydroxychloroquine, 200 mg, oral, Daily hydrOXYzine HCL, 50 mg, oral, BID pantoprazole, 40 mg, intravenous, q24h ELLIS pilocarpine, 5 mg, oral, BID polyethylene glycol, 17 g, oral, Daily heparin, 0-28 Units/kg/hr, Last Rate: Stopped (05/02/23629) Pertinent Investigations Hematology: Results from last 7 days Lab Units 05/02/23 0537 05/01/23 1812 05/01/23 0607 04/30/23 2212 04/30/23 0706 WBC AUTO 10*3/uL 4.11 -- 3.86* -- -- HEMOGLOBIN g/dL 11.7* 11.7* 10.7* < > -- HEMATOCRIT % 36.2 35.5* 34.1* < > -- MCV fL 86.8 -- 90.5 -- -- PLATELETS AUTO 10*3/uL 264 -- 208 -- 245 INR -- -- -- -- 1.12* < > = values in this interval not displayed. Chemistry: Results from last 7 days Lab Units 05/02/23 0537 05/01/23 0607 04/30/23 0141 SODIUM mmol/L 135* 135* 137 POTASSIUM mmol/L 3.9 4.1 4.3 CHLORIDE mmol/L 108* 108* 107 CO2 mmol/L 23 21 27 BUN mg/dL 7 7 11 CREATININE mg/dL 0.76 0.72 0.97 GLUCOSE mg/dL 95 98 59* MAGNESIUM mg/dL 1.9 -- 2.0 CALCIUM mg/dL 7.9* 7.2* 8.8 Results from last 7 days Lab Units 04/30/23 0141 AST U/L 18 ALT U/L 9 ALK PHOS U/L 49 BILIRUBIN TOTAL mg/dL 0.3 BILIRUBIN DIRECT mg/dL 0.0 LIPASE U/L 35 Results from last 7 days Lab Units 05/02/23 0637 04/30/23 0514 POCT GLUCOSE mg/dL 99 113* Historical Values: (Includes values prior to this admission) No results found for: PREALBUMIN, TSH, T3FREE, FREET4, CORTISOL, FEV1, ELX7XFE, DLCO, RVSP, HDL, LDL No results found for: [id number], IRON, TIBC, C3, C4, BLAS, CANCA, ASO, PSA, CEA, CA125, CA199, AFP, CA153 Imaging CT abdomen pelvis w IV contrast Narrative: CT ABDOMEN PEL (more content not included)... [facility] 05-02-2023 Note [facility] Vascular Surgery DAILY PROGRESS NOTE Subjective Patient seen and evaluated in room today, found alert and resting in bed, no acute events reported overnight. Patient states that her suprapubic and abdominal pain are unchanged since yesterday. Patient remaining on heparin therapy, plan for CT A/P today. Objective Vitals Vitals: 05/02/23 0445 BP: 114/75 Pulse: 72 Resp: 15 Temp: 37 ???C (98.6 ???F) SpO2: I/O last 3 completed shifts: In: 4462.1 (66.2 mL/kg) [P.O.:1440; I.V.:2922.1 (43.4 mL/kg); IV Piggyback:100] Out: 3200 (47.5 mL/kg) [Urine:3200 (1.3 mL/kg/hr)] Weight: 67.4 kg No intake/output data recorded. Physical Exam General Appearance: AAOx3, NAD Neck: trachea midline, no JVD Pulmonary: good respiratory effort on room air, no audible wheezing Cardiac: RRR Abdomen: soft, non-distended, noted RUQ, epigastric, and suprapubic tenderness. no guarding, no rebound tenderness Extremities: no edema bilateral upper and lower extremities Skin: warm and dry without rash Eyes: no scleral icterus Labs Results from last 7 days Lab Units 05/02/23 0537 05/01/23 1812 05/01/23 0607 04/30/23 2212 04/30/23 0706 04/30/23 0141 WBC AUTO 10*3/uL 4.11 -- 3.86* -- -- 4.45 HEMOGLOBIN g/dL 11.7* 11.7* 10.7* 12.7 -- 12.0 HEMATOCRIT % 36.2 35.5* 34.1* 40.0 -- 36.9 PLATELETS AUTO 10*3/uL 264 -- 208 -- 245 245 Results from last 7 days Lab Units 05/02/23 0537 05/01/23 0607 04/30/23 0141 SODIUM mmol/L 135* 135* 137 POTASSIUM mmol/L 3.9 4.1 4.3 CO2 mmol/L 23 21 27 BUN mg/dL 7 7 11 CREATININE mg/dL 0.76 0.72 0.97 Results from last 7 days Lab Units 04/30/23 07 INR 1.12* Medications cefTRIAXone, 1 g, intravenous, q24h hydroxychloroquine, 100 mg, oral, q PM hydroxychloroquine, 200 mg, oral, Daily hydrOXYzine HCL, 50 mg, oral, BID pantoprazole, 40 mg, intravenous, q24h ELLIS pilocarpine, 5 mg, oral, BID polyethylene glycol, 17 g, oral, Daily heparin, 0-28 Units/kg/hr, Last Rate: Stopped (05/02/23 0630) Imaging CT abdomen pelvis w IV contrast Narrative: CT ABDOMEN PELVIS W IV CONTRAST 04/30/2023 3:03 AM Clinical indication: Left lower quadrant abdominal pain, rectal pain, hematochezia, diarrhea Comparison: None. Technique: *Axial CT images of the abdomen and pelvis were obtained with intravenous contrast. *All CT scans at this facility use dose modulation, iterative reconstruction, and/or weight based dosing when appropriate to reduce radiation dose to as low as reasonably achievable. FINDINGS: Mild bibasilar dependent atelectasis. No pleural or pericardial effusions. No intra-abdominal free air or free fluid. Mild degree of intra-/extrahepatic biliary ductal dilatation. Likely reservoir effect in the setting of prior cholecystectomy. Noncirrhotic liver morphology with no focal hepatic lesion identified. Spleen, pancreas, and adrenal glands appear unremarkable. The kidneys, ureters, and urinary bladder appear unremarkable. No evidence of obstructive uropathy. No pelvic free fluid. The uterus appears unremarkable. Possible involuting follicle present in the right adnexa measuring up to 1.4 cm (coronal image 22). The small bowel, large bowel, and appendix appear unremarkable. Evidence of prior gastric bypass surgery and small bowel anastomosis No abdominal or pelvic lymphadenopathy. Nonaneurysmal abdominal aorta. The IVC is right-sided. Eccentric filling defect in the distal portal vein, which extends into the superior mesenteric vein, morphology suggestive of chronic venous thrombus versus mixing of noncontrast blood with the contrast in the SMV and portal vein. Degenerative endplate changes and vacuum disc phenomena at L2-L3. No acute osseous abnormality. Impression: *No acute abdominopelvic process. *Eccentric filling defect in the distal portal vein which extends distally into the superior mesenteric vein, morphology suggestive of chronic venous thrombus versus mixing of noncontrast blood with contrast filled in portal vein. Approved by:Cheng Morales04/30/2023 3:31 AM. I, Rachel Goddard,have reviewed the image(s) and agree with the findings in this report. Electronically signed: Rachel Goddard. Assessment/Plan Conrad Gonzalez is a 48 y.o. female who presented to [facility] ED on 04/30/2023 for abd pain/nausea/bloody diarrhea. Patient CT revealed eccentric filling defect in the distal portal vein which extends distally into the superior mesenteric vein, suggestive of possible chronic SMV thrombosis. Continue heparin drip Plan for CT A/P with venous phase today to further delineate possible SMV thrombus Appreciate general surgery and internal medicine input. Joshua Whaley Vascular Surgery Service Medical Student, MS4 05/02/23 Pain improving More alert Seen with residents For CTA with venous phase as still the finding in the previous CT might be a confluence artefact Davey Savage MD, (more content not included)... 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 /Renal (within normal limits) Pulmonary (+) asthma Circulatory (+) Thrombus (SMV thrombus) Clinical information reviewed: Physical Exam Airway Mallampati: I TM distance: >3 FB Neck ROM: full Cardiovascular - normal exam Dental - normal exam Pulmonary - normal exam Abdominal Other findings: Chronic diarrhea and hematochezia and abdominal pain now for scopes. + for benzos/THC/Cocaine 04/30 on admit. HH stable last anesthetic at [facility] G1 view w MIL2 Anesthesia Plan ASA 3 MAC intravenous induction Anesthetic plan and risks discussed with patient. Additional Equipment Requests [facility] 05-01-2023 Note Hospital Medicine Daily Progress Note - 05/01/2023 9:43 AM; Room: [address] [place] [address] Admission: 04/30/2023 12:28 AM; Length of stay: 1 days THE HOSPITALIST TEAM PREFERS TO USE [employer] CHAT FOR COMMUNICATION 7AM-7PM. IF I DO NOT RESPOND WITHIN 15 MINUTES, PLEASE PAGE ME/CALL THROUGH THE [employer] INSTALLER HELPER. FROM 7PM-7AM, PLEASE PAGE [phone](COVR) Code Status: Full Code Discharge Destination: home Discharge planning: egd/colon tmr Overview Patient is seen for evaluation and management of abdominal pain. Subjective Patient is a bedside, denies any chest pain or shortness of breath. Continues to have abdominal pain, improved with pain medication. Reports no bowel movement since being admitted. Discussed plan of care, as well as reason for isolation. Physical Exam Visit Vitals BP 94/56 (BP Location: Right arm, Patient Position: Lying) Pulse 71 Temp 36.8 ???C (98.2 ???F) (Temporal) Resp 12 Intake/Output Summary (Last 24 hours) at 05/01/2023 0943 Last data filed at 05/01/2023 0538 Gross per 24 hour Intake 3875.4 ml Output 4500 ml Net -624.6 ml Physical Exam Vitals reviewed. Constitutional: General: She is awake. She is not in acute distress. Appearance: Normal appearance. She is not ill-appearing. Cardiovascular: Rate and Rhythm: Normal rate and regular rhythm. Pulses: Radial pulses are 2+ on the right side and 2+ on the left side. Heart sounds: Normal heart sounds. Pulmonary: Effort: Pulmonary effort is normal. No tachypnea, accessory muscle usage or respiratory distress. Breath sounds: Normal breath sounds. Abdominal: General: Bowel sounds are normal. There is no distension. Palpations: Abdomen is soft. Tenderness: There is abdominal tenderness. Musculoskeletal: Right lower leg: No edema. Left lower leg: No edema. Skin: General: Skin is warm and dry. Neurological: Mental Status: She is alert and oriented to person, place, and time. Mental status is at baseline. Psychiatric: Attention and Perception: Attention normal. Mood and Affect: Mood normal. Speech: Speech normal. Behavior: Behavior normal. Behavior is cooperative. Estimated body mass index is 24.15 kg/m??? as calculated from the following: Height as of this encounter: 1.676 m (5' 6 ). Weight as of this encounter: 67.9 kg (149 lb 9.6 oz). 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 Acute cystitis without hematuria Normocytic anemia Diarrhea, resolved Polysubstance abuse; benzo, TCA, cocaine and cannabinoids Lupus history PUD History of perforated gastric ulcer s/p Jaleel patch repair x2 Continue vitals per unit protocol Vascular surgery consulted, recommend heparin drip for thrombus General surgery signed off Continue Rocephin for UTI, culture pending Stool studies pending GI planning EGD/colonoscopy tomorrow, hold heparin drip 6 hours prior to procedure Patient is tolerating intake, DC fluids Nutrition Screen VTE Prophylaxis: IV heparin Scheduled Meds cefTRIAXone, 1 g, intravenous, q24h hydroxychloroquine, 100 mg, oral, q PM hydroxychloroquine, 200 mg, oral, Daily hydrOXYzine HCL, 50 mg, oral, BID pantoprazole, 40 mg, intravenous, q24h ELLIS pilocarpine, 5 mg, oral, BID polyethylene glycol, 17 g, oral, Daily heparin, 0-28 Units/kg/hr, Last Rate: 18 Units/kg/hr (05/01/23 0561) sodium chloride, 100 mL/hr, Last Rate: 100 mL/hr (05/01/23 0609) Pertinent Investigations Hematology: Results from last 7 days Lab Units 05/01/23 0607 04/30/23 2212 04/30/23 0706 04/30/23 0141 WBC AUTO 10*3/uL 3.86* -- -- 4.45 HEMOGLOBIN g/dL 10.7* 12.7 -- 12.0 HEMATOCRIT % 34.1* 40.0 -- 36.9 MCV fL 90.5 -- -- 86.4 PLATELETS AUTO 10*3/uL 208 -- 245 245 INR -- -- 1.12* -- Chemistry: Results from last 7 days Lab Units 05/01/23 0607 04/30/23 0141 SODIUM mmol/L 135* 137 POTASSIUM mmol/L 4.1 4.3 CHLORIDE mmol/L 108* 107 CO2 mmol/L 21 27 BUN mg/dL 7 11 CREATININE mg/dL 0.72 0.97 GLUCOSE mg/dL 98 59* MAGNESIUM mg/dL -- 2.0 CALCIUM mg/dL 7.2* 8.8 Results from last 7 days Lab Units 04/30/23 0141 AST U/L 18 ALT U/L 9 ALK PHOS U/L 49 BILIRUBIN TOTAL mg/dL 0.3 BILIRUBIN DIRECT mg/dL 0.0 LIPASE U/L 35 Results from last 7 days Lab Units 04/30/23 0514 POCT GLUCOSE mg/dL 113* Historical Values: (Includes values prior to this admission) No results found for: PREALBUMIN, TSH, T3FREE, FREET4, CORTISOL, FEV1, AGQ0LSS, DLCO, RVSP, HDL, LDL No results found for: [id number], IRON, TIBC, C3, C4, BLAS, CANCA, ASO, PSA, CEA, CA125, CA199, AFP, CA153 Imaging CT abdomen pelvis w IV contrast Narrative: CT ABDOMEN PELVIS W IV CONTRAST 04/30/2023 3:03 AM Clinical indication: Left lower quadrant abdominal (more content not included)... [facility] 05-01-2023 Note [facility] Vascular Surgery DAILY PROGRESS NOTE Subjective No acute events overnight. States that abdominal pain is partially improving. Continues to report suprapubic discomfort. On heparin infusion. Objective Vitals Vitals: 05/01/23 0415 BP: 94/56 Pulse: 71 Resp: 12 Temp: 36.8 ???C (98.2 ???F) SpO2: 97% I/O last 3 completed shifts: In: 6599.1 (97.2 mL/kg) [P.O.:1560; I.V.:2729.1 (40.2 mL/kg); IV Piggyback:2310] Out: 4500 (66.3 mL/kg) [Urine:4500 (1.8 mL/kg/hr)] Weight: 67.9 kg No intake/output data recorded. Physical Exam General Appearance: AAOx3, NAD Neck: trachea midline, no JVD Pulmonary: good respiratory effort on room air, no audible wheezing Cardiac: RRR Abdomen: soft, non-distended, mild epigastric and suprapubic tenderness. no guarding, no rebound tenderness Extremities: no edema bilateral upper and lower extremities Skin: warm and dry without rash Eyes: no scleral icterus Labs Results from last 7 days Lab Units 05/01/23 0607 04/30/23 2212 04/30/23 0706 04/30/23 0141 WBC AUTO 10*3/uL 3.86* -- -- 4.45 HEMOGLOBIN g/dL 10.7* 12.7 -- 12.0 HEMATOCRIT % 34.1* 40.0 -- 36.9 PLATELETS AUTO 10*3/uL 208 -- 245 245 Results from last 7 days Lab Units 05/01/23 0607 04/30/23 0141 SODIUM mmol/L 135* 137 POTASSIUM mmol/L 4.1 4.3 CO2 mmol/L 21 27 BUN mg/dL 7 11 CREATININE mg/dL 0.72 0.97 Results from last 7 days Lab Units 04/30/23 0706 INR 1.12* Medications cefTRIAXone, 1 g, intravenous, q24h hydroxychloroquine, 100 mg, oral, q PM hydroxychloroquine, 200 mg, oral, Daily hydrOXYzine HCL, 50 mg, oral, BID pantoprazole, 40 mg, intravenous, q24h ELLIS pilocarpine, 5 mg, oral, BID polyethylene glycol, 17 g, oral, Daily heparin, 0-28 Units/kg/hr, Last Rate: 18 Units/kg/hr (05/01/23 0538) sodium chloride, 100 mL/hr, Last Rate: 100 mL/hr (05/01/23 0609) Imaging CT abdomen pelvis w IV contrast Narrative: CT ABDOMEN PELVIS W IV CONTRAST 04/30/2023 3:03 AM Clinical indication: Left lower quadrant abdominal pain, rectal pain, hematochezia, diarrhea Comparison: None. Technique: *Axial CT images of the abdomen and pelvis were obtained with intravenous contrast. *All CT scans at this facility use dose modulation, iterative reconstruction, and/or weight based dosing when appropriate to reduce radiation dose to as low as reasonably achievable. FINDINGS: Mild bibasilar dependent atelectasis. No pleural or pericardial effusions. No intra-abdominal free air or free fluid. Mild degree of intra-/extrahepatic biliary ductal dilatation. Likely reservoir effect in the setting of prior cholecystectomy. Noncirrhotic liver morphology with no focal hepatic lesion identified. Spleen, pancreas, and adrenal glands appear unremarkable. The kidneys, ureters, and urinary bladder appear unremarkable. No evidence of obstructive uropathy. No pelvic free fluid. The uterus appears unremarkable. Possible involuting follicle present in the right adnexa measuring up to 1.4 cm (coronal image 22). The small bowel, large bowel, and appendix appear unremarkable. Evidence of prior gastric bypass surgery and small bowel anastomosis No abdominal or pelvic lymphadenopathy. Nonaneurysmal abdominal aorta. The IVC is right-sided. Eccentric filling defect in the distal portal vein, which extends into the superior mesenteric vein, morphology suggestive of chronic venous thrombus versus mixing of noncontrast blood with the contrast in the SMV and portal vein. Degenerative endplate changes and vacuum disc phenomena at L2-L3. No acute osseous abnormality. Impression: *No acute abdominopelvic process. *Eccentric filling defect in the distal portal vein which extends distally into the superior mesenteric vein, morphology suggestive of chronic venous thrombus versus mixing of noncontrast blood with contrast filled in portal vein. Approved by:Cheng Morales04/30/2023 3:31 AM. I, Rachel Goddard,have reviewed the image(s) and agree with the findings in this report. Electronically signed: Rachel Goddard. Assessment/Plan Conrad Gonzalez is a 48 y.o. female who presented to [facility] ED on 04/30/2023 for abd pain/nausea/bloody diarrhea. Patient CT revealed eccentric filling defect in the distal portal vein which extends distally into the superior mesenteric vein, suggestive of possible chronic SMV thrombosis. Continue heparin drip Will perform CT A/P with venous phase tomorrow to further delineate possible SMV thrombus Appreciate general surgery and internal medicine input. Richi Osullivan MD Vascular Surgery Service General Surgery Resident, PGY-4 05/01/23 [facility] 05-01-2023 Note Attestation signed by Jozef Scruggs MD at 05/01/2023 2:09 PM I personally saw and examined the patient on the same date of service as resident/fellow TAMMY. I discussed the findings and therapeutic plan with the resident/fellow TAMMY. I agree with the documentation, except for any edits/updates below. Teaching Physician's Revisions: None [facility] General Surgery DAILY PROGRESS NOTE Subjective Patient still feels swelling in her lower abdomen. The pain in her lower abdomen has improved from admission. She has passed flatus but not had a bowel movement. She has nausea but denies vomiting. Patient has been OOB. Objective Vitals: Vitals: 05/01/23 0415 BP: 94/56 Pulse: 71 Resp: 12 Temp: 36.8 ???C (98.2 ???F) SpO2: 97% I/O last 3 completed shifts: In: 6599.1 (97.2 mL/kg) [P.O.:1560; I.V.:2729.1 (40.2 mL/kg); IV Piggyback:2310] Out: 4500 (66.3 mL/kg) [Urine:4500 (1.8 mL/kg/hr)] Weight: 67.9 kg No intake/output data recorded. Physical Exam General Appearance: Awake, Alert & Oriented x3, No Acute Distress Neck: Trachea Midline, No jugular venous distension Pulmonary: Unlabored breathing on room air Cardiac: Regular rate Abdomen: tenderness in RLQ and suprapubic area, slight distention, no guarding Extremity: No edema Skin: warm and dry Eyes: no scleral icterus Labs: Results from last 7 days Lab Units 05/01/23 0607 04/30/23 2212 04/30/23 0706 04/30/23 0141 WBC AUTO 10*3/uL 3.86* -- -- 4.45 HEMOGLOBIN g/dL 10.7* 12.7 -- 12.0 HEMATOCRIT % 34.1* 40.0 -- 36.9 PLATELETS AUTO 10*3/uL 208 -- 245 245 Results from last 7 days Lab Units 05/01/23 0607 04/30/23 0141 SODIUM mmol/L 135* 137 POTASSIUM mmol/L 4.1 4.3 CO2 mmol/L 21 27 BUN mg/dL 7 11 CREATININE mg/dL 0.72 0.97 Results from last 7 days Lab Units 04/30/23 0706 INR 1.12* Medications: cefTRIAXone, 1 g, intravenous, q24h hydroxychloroquine, 100 mg, oral, q PM hydroxychloroquine, 200 mg, oral, Daily hydrOXYzine HCL, 50 mg, oral, BID pantoprazole, 40 mg, intravenous, q24h ELLIS pilocarpine, 5 mg, oral, BID polyethylene glycol, 17 g, oral, Daily heparin, 0-28 Units/kg/hr, Last Rate: 18 Units/kg/hr (05/01/23 0538) sodium chloride, 100 mL/hr, Last Rate: 100 mL/hr (05/01/23 0609) Imaging: CT abdomen pelvis w IV contrast Narrative: CT ABDOMEN PELVIS W IV CONTRAST 04/30/2023 3:03 AM Clinical indication: Left lower quadrant abdominal pain, rectal pain, hematochezia, diarrhea Comparison: None. Technique: *Axial CT images of the abdomen and pelvis were obtained with intravenous contrast. *All CT scans at this facility use dose modulation, iterative reconstruction, and/or weight based dosing when appropriate to reduce radiation dose to as low as reasonably achievable. FINDINGS: Mild bibasilar dependent atelectasis. No pleural or pericardial effusions. No intra-abdominal free air or free fluid. Mild degree of intra-/extrahepatic biliary ductal dilatation. Likely reservoir effect in the setting of prior cholecystectomy. Noncirrhotic liver morphology with no focal hepatic lesion identified. Spleen, pancreas, and adrenal glands appear unremarkable. The kidneys, ureters, and urinary bladder appear unremarkable. No evidence of obstructive uropathy. No pelvic free fluid. The uterus appears unremarkable. Possible involuting follicle present in the right adnexa measuring up to 1.4 cm (coronal image 22). The small bowel, large bowel, and appendix appear unremarkable. Evidence of prior gastric bypass surgery and small bowel anastomosis No abdominal or pelvic lymphadenopathy. Nonaneurysmal abdominal aorta. The IVC is right-sided. Eccentric filling defect in the distal portal vein, which extends into the superior mesenteric vein, morphology suggestive of chronic venous thrombus versus mixing of noncontrast blood with the contrast in the SMV and portal vein. Degenerative endplate changes and vacuum disc phenomena at L2-L3. No acute osseous abnormality. Impression: *No acute abdominopelvic process. *Eccentric filling defect in the distal portal vein which extends distally into the superior mesenteric vein, morphology suggestive of chronic venous thrombus versus mixing of noncontrast blood with contrast filled in portal vein. Approved by:Cheng Morales04/30/2023 3:31 AM. I, Rachel Goddard,have reviewed the image(s) and agree with the findings in this report. Electronically signed: Rachel Goddard. Assessment/Plan Conrad Gonzalez is a 48 y.o. female who is presented to [facility] ED on 04/30/2023 for abdominal pain/nausea/bloody diarrhea. Patient with extensive past surgical hx including perforated gastric ulcer with jaleel patch repair x2, Billroth 2 procedure with cholecystectomy and gastrojejunostomy with open revi (more content not included)... [facility] 04-30-2023 Note Hospital Medicine History and Physical 04/30/2023 7:41 AM THE HOSPITALIST TEAM PREFERS TO USE [employer] FOR COMMUNICATION 7AM-7PM. IF I DO NOT RESPOND WITHIN 15 MINUTES, PLEASE PAGE ME/CALL THROUGH THE [employer] INSTALLER HELPER. FROM 7PM-7AM, PLEASE PAGE [phone](COVR) Chief Complaint Chief Complaint Patient presents with Rectal Pain Female Dysuria Abdominal Pain Pt abdomen is swollen to LUQ. Has been increasing over the last few weeks. History of Present Illness Conrad Gonzalez is an 48 y.o. female who came from home with Extensive known past medical history of lupus, PUD, surgical history of perforated ulcer with Jaleel patch, cholecystectomy, presents to the hospital today with abdominal pain, decreased appetite and nausea associated with bloating. Patient also complains of history of dysuria, nausea associated with her symptoms.She is also endorsed prior history of having rectal bleed in the past. Currently not on any blood thinners or otherwise. 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 Surgery team also saw the patient did not determine any surgical needs. Patient was also noted to have possible UTI ongoing with her symptoms. Vascular surgery started the patient on heparin gtt. and admission was requested under hospital medicine for optimization of care and management of UTI. Review of System and Physical Exam Temp: [36.7 ???C (98.1 ???F)] 36.7 ???C (98.1 ???F) Heart Rate: [79-81] 79 Resp: [18] 18 BP: (88-111)/(61-82) 93/69 Physical Exam Constitutional: Appearance: Normal appearance. HENT: Head: Atraumatic. Mouth/Throat: Pharynx: Oropharynx is clear. Eyes: Extraocular Movements: Extraocular movements intact. Cardiovascular: Rate and Rhythm: Normal rate and regular rhythm. Pulmonary: Effort: Pulmonary effort is normal. Breath sounds: Normal breath sounds. Abdominal: General: Abdomen is flat. Bowel sounds are normal. Musculoskeletal: General: Normal range of motion. Cervical back: Neck supple. Skin: General: Skin is warm. Neurological: Mental Status: She is alert. Mental status is at baseline. Psychiatric: Mood and Affect: Mood normal. Review of Systems Constitutional: Positive for activity change and fatigue. Gastrointestinal: Positive for abdominal distention, abdominal pain, diarrhea, nausea and vomiting. 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 Polysubstance use- Noted hx positive for benzodiazapine, TCA, cocaine and cannabinoids Supportive care, monitor for withdrawal Hx of Lupus PUD Perforated gastric ulcer with jaleel patch repair x2 Billroth 2 procedure with cholecystectomy Gastrojejunostomy with open revision Add home medications once all available VTE Prophylaxis: Heparin gtt ----- Focus of this inpatient stay will remain on problems that need acute care setting for care. We will review available studies and will order additional labs, imaging and other studies as appropriate. As needed medicines are ordered as appropriate. VTE Prophylaxis will be ordered as appropriate. Please see above for management plan for individual hospital problems. Home medications are reviewed and will be continued as appropriate. Patient will be continued to be followed during this hospital stay by a member of [facility]. Past Medical History Past Medical History: Diagnosis Date Gastric ulcer Lupus (CMS/HCC) Past Surgical History Past Surgical History: Procedure Laterality Date ABDOMINAL SURGERY Social History Social History Socioeconomic History Marital status: Spouse name: Not on file Number of children: Not on file Years of education: Not on file Highest education level: Not on file Occupational History Not on file Tobacco Use Smoking status: Never Smokeless tobacco: Never Vaping Use Vaping Use: Never used Substance and Sexual Activity Alcohol use: Never Drug use: Never Sexual activity: Defer Other Topics Concern Not on file Social History Narrative Not on file Social Determinants of Health Financial Resource Strain: Not on file Food Insecurity: Not on file Transportation Needs: Not on file Physical Activi (more content not included)... [facility] 04-30-2023 Note [facility] V[facility] Surgery CONSULTATION Reason For Consult: Chronic SMV thrombosis Referring Provider: General Surgery team History Of Present Illness Conrad Gonzalez is a 48 y.o. female with PMH of lupus, PUD, gastric anastomotic stricture and extensive surgical hx including perforated ulcer with jaleel patch repair x2, billroth 2 procedure, cholecystectomy, and gastrojejunostomy with open revision. Patient presents today with abdominal pain x 4 days and diarrhea with bright red blood. Patient endorses some nausea and decreased appetite without vomiting. Patient reports she feels bloated and has increased pain on the right side of her abdomen when standing. Patients BP soft 88-100 SBP and HR 81. Patient reports her BP runs low. Patient also endorses dysuria for the last week. Reports she has had adequate fluid intake. Patient denies hx of clots or blood thinner use. Reports her blood clots when she has it drawn . Past Medical History She has a past medical history of Gastric ulcer and Lupus (CMS/HCC). Surgical History Perforated gastric ulcer with jaleel patch repair x2 Billroth 2 procedure with cholecystectomy Gastrojejunostomy with open revision Family History Noncontributory Social History She reports that she has never smoked. She has never used smokeless tobacco. She reports that she does not drink alcohol and does not use drugs. Allergies Amoxicillin and Penicillins Medications (Not in a hospital admission) Active Hospital Medications Medication Dose Route Frequency Last Admin cefTRIAXone 1 g intravenous Once heparin (porcine) 25 Units/kg intravenous q6h PRN heparin (porcine) 80 Units/kg intravenous Once heparin 0-28 Units/kg/hr intravenous Continuous sodium chloride 100 mL/hr intravenous Continuous 100 mL/hr at 04/30/23 0520 Review of Systems Constitutional: Positive for appetite change. Negative for chills and fever. Respiratory: Negative for chest tightness and shortness of breath. Cardiovascular: Negative for chest pain. Gastrointestinal: Positive for abdominal distention, abdominal pain, blood in stool, diarrhea and nausea. Negative for constipation and vomiting. Genitourinary: Positive for dysuria. Skin: Positive for pallor. All other systems reviewed and are negative. Last Recorded Vitals Patient Vitals for the past 24 hrs: BP Temp Temp src Pulse Resp SpO2 Height Weight 04/30/23 0513 111/79 -- -- -- -- 100 % -- -- 04/30/23 0420 100/82 -- -- -- -- 97 % -- -- 04/29/23 2212 88/61 36.7 ???C (98.1 ???F) -- 81 -- 100 % -- -- 107 -- -- Oral -- 18 -- 1.676 m (5' 6 ) 71.2 kg (157 lb) Physical Exam Vitals reviewed. Constitutional: General: She is not in acute distress. Appearance: She is ill-appearing. She is not toxic-appearing or diaphoretic. Comments: Drowsy HENT: Mouth/Throat: Mouth: Mucous membranes are dry. Cardiovascular: Rate and Rhythm: Normal rate. Comments: SBP soft 88-100s Pulmonary: Effort: Pulmonary effort is normal. No respiratory distress. Abdominal: General: Abdomen is flat. There is no distension. Palpations: Abdomen is soft. Tenderness: There is abdominal tenderness. There is guarding. There is no rebound. Hernia: No hernia is present. Skin: General: Skin is warm and dry. Capillary Refill: Capillary refill takes less than 2 seconds. Coloration: Skin is pale. Neurological: Mental Status: She is alert. Psychiatric: Comments: Flat affect, slow to answer questions Relevant Results Recent Results (from the past 12 hour(s)) Basic metabolic panel Collection Time: 04/30/23 1:41 AM Result Value Ref Range Sodium 137 136 - 145 mmol/L Potassium 4.3 3.5 - 5.1 mmol/L Chloride 107 98 - 107 mmol/L CO2 27 21 - 31 mmol/L BUN 11 7 - 25 mg/dL Creatinine 0.97 0.60 - 1.20 mg/dL Glucose 59 (L) 70 - 100 mg/dL Calcium 8.8 8.6 - 10.3 mg/dL Anion Gap 7 7 - 20 mmol/L eGFR 73.0 >60.0 mL/min/1.73m*2 BUN/Creatinine Ratio 11.3 Lactate Blood x 1 Collection Time: 04/30/23 1:41 AM Result Value Ref Range Lactate 0.9 0.5 - 2.2 mmol/L Hepatic function panel Collection Time: 04/30/23 1:41 AM Result Value Ref Range Total Bilirubin 0.3 0.3 - 1.0 mg/dL Bilirubin, Direct 0.0 0 - 0.2 mg/dL Alkaline Phosphatase 49 34 - 104 U/L AST 18 13 - 39 U/L ALT (SGPT) 9 7 - 52 U/L Total Protein 6.2 6.0 - 8.3 g/dL Albumin 3.9 3.5 - 5.7 g/dL CBC auto differential Collection Time: 04/30/23 1:41 AM Result Value Ref Range Auto WBC 4.45 4.00 - 10.60 10*3/uL RBC 4.27 3.80 - 5.00 10*6/uL Hemoglobin 12.0 12.0 - 15.0 g/dL Hematocrit 36.9 36.0 - 48.0 % MCV 86.4 82.0 - 98.0 fL MCH 28.1 27.0 - 33.0 pg MCHC 32.5 32.0 - 35.0 g/dL RDW 13.2 11.5 - 15.0 % Neutrophils Relative 67.9 40.0 - 72.0 % Lymphocytes Relative 18.9 (L) 20.0 - 45.0 % Monocytes Relative 11.0 5.0 - 12.0 % Eosinophils Relative 1.1 0.0 - 6.0 % Basophils Relative 0.9 0.0 - 1.0 % Neutrophils Absolute 3.02 1.60 - 7.60 10*3/uL (more content not included)... [facility] 02-07-2023 Hospital Discharge instructions Patient Education 02/07/2023 16:28:03 Nasal Fracture Nasal Fracture A nasal fracture is a break or crack in the bones of the nose or the tissue that helps to form the nose (cartilage). Minor breaks do not require treatment and usually heal on their own after about one month. Serious breaks may require treatment that could include surgery. What are the causes? A nasal fracture is usually caused by the strong force of a direct hit to the nose (blunt injury). This type of injury often occurs from: Playing a contact sport. Being involved in a car accident. Falling. Getting punched in the face. What are the signs or symptoms? Symptoms of this condition include: Pain. Swelling of the nose. Bleeding from the nose. Bruising around the nose or bruising around the eyes (black eyes). Crooked appearance of the nose. How is this diagnosed? This condition may be diagnosed based on a physical exam. During the exam, the health care provider will: Gently feel the nose for signs of broken bones. Look inside the nostrils to check if there is a blood-filled swelling on the dividing wall between the nostrils (septal hematoma). An X-ray of the nose may be taken. Sometimes, an X-ray may not show a nasal fracture even when one is present. In some cases, X-rays or a CT scan may be taken again 1 5 days later after the swelling has gone down. How is this treated? Treatment for this condition depends on the severity of the injury. Minor fractures that have not caused deformity often do not require treatment. They may heal on their own. For more serious fractures that have caused bones to move out of position, treatment may involve one of the following: ?Repositioning the bones without surgery. The health care provider may be able to do this in his or her office after you are given medicine to numb the nasal area (local anesthetic). ?Surgery. If surgery is needed, it will be done after the swelling is gone. Surgery will stabilize and align the fracture. Follow these instructions at home: Activity Return to your normal activities as told by your health care provider. Ask your health care provider what activities are safe for you. Do not play contact sports for 3 4 weeks or as told by your health care provider. Managing pain and swelling If directed, put ice on the injured area. To do this: Put ice in a plastic bag. Place a towel between your skin and the bag. Leave the ice on for 20 minutes, 2 3 times a day. Take off the ice if your skin turns bright red. This is very important. If you cannot feel pain, heat, or cold, you have a greater risk of damage to the area. General instructions Take zkab-efi-tegbxfz and prescription medicines only as told by your health care provider. If your nose starts to bleed, sit in an upright position while you squeeze the soft parts of your nose against the dividing wall between your nostrils (septum) for 10 minutes. Try to avoid blowing your nose. Keep all follow-up visits. This is important. Contact a health care provider if: Your pain increases or becomes severe. You continue to have nosebleeds. The shape of your nose does not return to normal within 5 days. You have pus draining out of your nose. Get help right away if: You have bleeding from your nose that does not stop after you pinch your nostrils closed for 20 minutes and keep ice on your nose. You have clear fluid draining out of your nose. You notice swelling near the septum inside the nose. This swelling is a septal hematoma that must be drained to help prevent infection. You have difficulty moving your eyes. You have repeated vomiting. These symptoms may be an emergency. Get help right away. Call 911. Do not wait to see if the symptoms will go away. Do not drive yourself to the hospital. Summary A nasal fracture is a break or crack in the bones or cartilage of the nose. The fracture is usually caused by a blunt injury to the nose. Symptoms include pain, swelling, and facial bruising. Nasal fractures may heal on their own, or your health care provider may need to move the bones back into proper position. In some cases, surgery may be needed. This information is not intended to replace advice given to you by your health care provider. Make sure you discuss any questions you have with your health care provider. Document Revised: 02/17/2022 Document Reviewed: 02/17/2022 [employer] Patient Education 2022 [employer] 02/07/2023 16:28:03 Post-Concussion Syndrome Post-Concussion Syndrome A concussion is a brain injury from a direct hit to the head or body. This hit causes the brain to shake quickly back and forth inside the skull. This can damage brain cells and cause chemical changes in the brain. Concussions are usually not life-threatening but can cause serious symptoms. Post-concussion syndrome is when symptoms that occur after a concussion last longer than normal. These symptoms can last from weeks to months. What are the causes? The cause of this condition is not known. It can happen whether your head injury was mild or severe. What increases the risk? You are more likely to develop this condition if: You are female. You are a child, teen, or young adult. You have had a past head injury. You have a history of headaches. You have depression or anxiety. You have loss of consciousness or cannot remember the event (have amnesia of the event). You have multiple symptoms or severe symptoms at the time of your concussion. What are the signs or symptoms? Symptoms of this condition include: Physical symptoms. You may have: ?Headaches. ?Tiredness. ?Dizziness and weakness. ?Blurry vision and sensitivity to light. ?Hearing difficulties. ?Problems with balance. Mental and emotional symptoms. You may have: ?Memory problems and trouble concentrating. ?Difficulty sleeping or staying asleep. ?Feelings of irritability. ?Anxiety or depression. ?Difficulty learning new things. How is this diagnosed? This condition may be diagnosed based on: Your symptoms. A description of your injury. Your medical history. Testing your strength, balance, and nerve function (neurological examination). Your health care provider may order other tests, including brain imaging such as a CT scan or an MRI, and memory testing (neuropsychological testing). How is this treated? Treatment for this condition may depend on your symptoms. Symptoms usually go away on their own over time. Treatments may include: Medicines for headaches, anxiety, depression, and trouble sleeping (insomnia). Resting your brain and body for a few days after your injury. Rehabilitation therapy, such as: ?Physical or occupational therapy. This may include exercises to help with balance and dizziness. ?Mental health counseling. A form of talk therapy called cognitive behavioral therapy (CBT) can be especially helpful. This therapy helps you set goals and follow up on the changes that you make. ?Speech therapy. ?Vision therapy. A brain and senior specialist can recommend treatments for vision problems. Follow these instructions at home: Medicines Take ybpb-qsr-imfjlay and prescription medicines only as told by your health care provider. Avoid opioid prescription pain medicines when recovering from a concussion. Activity Limit your mental activities for the first few days after your injury. This may include not doing the following: ?Homework or job-related work. ?Complex thinking. ?Watching TV, and using a computer or phone. ?Playing memory games and puzzles. Gradually return to your normal activity level. If a certain activity brings on your symptoms, stop or slow down until you can do the activity without it triggering your symptoms. Limit physical activity, such as exercise or sports, for the first few days after a concussion. Gradually return to normal activity as told by your health care provider. Rest. Rest helps your brain heal. Make sure you: ?Get plenty of sleep at night. Most adults should get at least 7 9 hours of sleep each night. ?Rest during the day. Take naps or rest breaks when you feel tired. Do not do high-risk activities that could cause a second concussion, such as riding a bike or playing sports. Having another concussion before the first one has healed can be dangerous. General instructions Do not drink alcohol until your health care provider says that you can. Keep track of the frequency and the severity of your symptoms. Give this information to your health care provider. Keep all follow-up visits as directed by your health care provider. This is important. This includes visits with specialists. Contact a health care provider if: Your symptoms do not improve. You have another injury. Get help right away if you: Have a severe or worsening headache. Are confused. Have trouble staying awake. Faint. Vomit. Have weakness or numbness in any part of your body. Have a seizure. Have trouble speaking. Summary Post-concussion syndrome is when symptoms that occur after a concussion last longer than normal. Symptoms usually go away on their own over time. Depending on your symptoms, you may need treatment, such as medicines or rehabilitation therapy. Rest your brain and body for a few days after your injury. Gradually return to normal activities as told by your health care provider. Get plenty of sleep, and avoid alcohol and opioid pain medicines while recovering from a concussion. This information is not intended to replace advice given to you by your health care provider. Make sure you discuss any questions you have with your health care provider. Document Revised: 09/24/2021 Document Reviewed: 09/24/2021 [employer] Patient Education 2022 [employer]. 02/07/2023 16:28:03 Contusion Contusion A contusion is a deep bruise. Contusions are the result of a blunt injury to tissues and muscle fibers under the skin. The injury causes bleeding under the skin. The skin overlying the contusion may turn blue, purple, or yellow. Minor injuries will give you a painless contusion, but more severe injuries cause contusions that may stay painful and swollen for a few weeks. Follow these instructions at home: Pay attention to any changes in your symptoms. Let your health care provider know about them. Take these actions to relieve your pain. Managing pain, stiffness, and swelling Use resting, icing, applying pressure (compression), and raising (elevating) the injured area. This is often called the RICE strategy. ?Rest the injured area. Return to your normal activities as told by your health care provider. Ask your health care provider what activities are safe for you. ?If directed, put ice on the injured area: ?Put ice in a plastic bag. ?Place a towel between your skin and the bag. ?Leave the ice on for 20 minutes, 2 3 times per day. ?If directed, apply light compression to the injured area using an elastic bandage. Make sure the bandage is not wrapped too tightly. Remove and reapply the bandage as directed by your health care provider. ?If possible, raise (elevate) the injured area above the level of your heart while you are sitting or lying down. General instructions Take nfzl-rqp-szlhbor and prescription medicines only as told by your health care provider. Keep all follow-up visits as told by your health care provider. This is important. Contact a health care provider if: Your symptoms do not improve after several days of treatment. Your symptoms get worse. You have difficulty moving the injured area. Get help right away if: You have severe pain. You have numbness in a hand or foot. Your hand or foot turns pale or cold. Summary A contusion is a deep bruise. Contusions are the result of a blunt injury to tissues and muscle fibers under the skin. It is treated with rest, ice, compression, and elevation. You may be given cvow-rsz-kfnetox medicines for pain. Contact a health care provider if your symptoms do not improve, or get worse. Get help right away if you have severe pain, have numbness, or the area turns pale or cold. This information is not intended to replace advice given to you by your health care provider. Make sure you discuss any questions you have with your health care provider. Document Revised: 05/25/2022 Document Reviewed: 05/06/2022 [employer] Patient Education 2022 [employer]. Follow Up Care 02/07/2023 13:47:50 With:Himanshu DASILVA Address: [facility] [address], [facility] [place] [address] [facility] (1) When:02/10/2023 16:27:50 Comments:Call the office of your primary care doctor to arrange for follow-up within the above-stated timeframe. Follow-up with your primary care doctor about this ED visit. You should review your labs, imaging, and diagnoses from this ED visit with your primary care physician. If you were prescribed medications you should discuss possible side-effects and drug interactions with your pharmacist. Call 911 or go to the nearest Emergency Department if you develop any new or worsening symptoms. [facility] 07-08-2022 Hospital Discharge instructions Jose C Goetz MD - 07/08/2022 8:03 PM EST We saw you in the hospital for decreased breathing/altered mental status. And examination was consistent with exposure to an opiate. You were treated with Narcan. You were recommended to stay in the hospital but declined to do so for further monitoring and possible treatment with naloxone. You indicated that you had naloxone at home. You were treated with IV fluids and lidocaine. Ensure people around you are aware of how to use Narcan and keep it around you. Contact the health department if you desire help with cessation of use of opiates. You need to see your regular doctor in 2-3 days to be checked. You should return to the emergency department if your symptoms worsen or do not resolve. In addition, return if: - You have a fever (greater than 101 degrees) or shortness of breath - You have chest pain, shortness of breath, abdominal pain, or uncontrollable vomiting - You are unable to eat or drink - You pass out - You have difficulty moving your arms or legs - You have difficulty speaking or slurred speech - Or you have any concern that you feel needs acute physician evaluation. The following attachments cannot be sent through Care Everywhere.naloxone (nasal) (Syrian)documented in this encounter [employer] Phone: Evaluation + Plan note Future Appointments Appointment Date:02/09/2023 01:00:00 PM Scheduled Provider:Grecia Milner Location:[facility] Appointment Type:[facility] Evaluation note Diagnosis Opioid use disorder documented in this encounter [employer] Phone: evaluation note* Diagnosis Opiate overdose, accidental or unintentional, initial encounter ([facility])- Primary documented in this encounter [facility] [employer] Phone: Hospital course Narrative No data available for this section [facility] No data available for this section [facility] Summary Purpose Family History No Family History Records FoundNo Family History Records FoundNo Family History Records FoundNo Family History Records Found Advance Directives No Advanced Directives Records FoundDocuments on File Type Date 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 Advance Directives and Livin g Will Advance Directives and Livin g Will 04/04/2014 6:08 PM Advance Directives and Livin g Will 04/07/2014 5:13 PM 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 Latest Code Status on File Code Status Date Activated Date Inactivated Comments Full Code 04/18/2014 4:17 PM 04/19/2014 8:44 PM Full Code 04/06/2014 2:32 PM 04/15/2014 7:29 PM Full Code 04/06/2014 7:20 AM 04/06/2014 2:32 PM Documents on File Type Date Recorded 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 ACP-Advance Directive 04/07/2014 5:13 PM ACP-Advance Directive 04/04/2014 6:08 PM Documents on File Type Date Recorded 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 ACP-Advance Directive 04/07/2014 5:13 PM ACP-Advance Directive 04/04/2014 6:08 PM Latest Code Status on File Code Status Date Activated Date Inactivated Comments Full Code 04/18/2014 4:17 PM 04/19/2014 8:44 PM Full Code 04/06/2014 2:32 PM 04/15/2014 7:29 PM Full Code 04/06/2014 7:20 AM 04/06/2014 2:32 PM Reason for Referral Status Reason Specialty Diagnoses / Procedures Referred By Contact Referred To Contact Open Specialty Services Required Gastroenterology Diagnoses Rectal bleeding Ángel Wallace MD [id number] [place] [address] Specialty Diagnoses / Procedures Referred By Contac t Referred To Contact Cardiology Diagnoses Opioid use disorder Procedures Echocardiogram stress test Rufina Case [address] [place] [address] [address] [place] [address] Referral ID Status Reason Start Date Expiration Date V isits Requested Visits Authorized [id number] Pending Review 04/15/2022 04/14/2023 1 1 Discharge Instructions * Instructions* Ángel Wallace MD - 02/10/2020 You were seen today for abdominal pain and for rectal bleeding. Your labs showed a stable hemoglobin. Your CT Scan did not show a cause for your rectal bleeding. Please call your primary care doctor to discuss getting you a referral to a GI doctor for further treatment of your symptoms. Please return to the ED If you have any new or worsening symptoms. Thank you for allowing us to be part of your care at [facility]. Best wishes, Ángel Wallace MD, FACEP Emergency Department Physician [facility] Your Lab Results: Results for orders placed or performed during the hospital encounter of 02/10/20 , urine Result Value Ref Range HCG(Urine) Test Negative Detects HCG level >20 MIU/mL Urinalysis Reflex to Culture Specimen: Urine, clean catch Result Value Ref Range Color, UA Yellow Straw/Yellow Clarity, UA Clear Clear Glucose, Ur Negative Negative mg/dL Bilirubin Urine Negative Negative Ketones, Urine Negative Negative mg/dL Specific [place], UA 1.010 1.005 - 1.030 Blood, Urine Negative Negative pH, UA 6.0 5.0 - 8.0 Protein, UA Negative Negative mg/dL Urobilinogen, Urine 0.2 <2.0 E.U./dL Nitrite, Urine Negative Negative Leukocyte Esterase, Urine Negative Negative Microscopic Examination Not Indicated Urine Type Other Urine Reflex to Culture Not Indicated CBC Auto Differential Result Value Ref Range WBC 6.7 4.0 - 11.0 K/uL RBC 4.07 4.00 - 5.20 M/uL Hemoglobin 11.1 (L) 12.0 - 16.0 g/dL Hematocrit 33.6 (L) 36.0 - 48.0 % MCV 82.4 80.0 - 100.0 fL MCH 27.2 26.0 - 34.0 pg MCHC 33.0 31.0 - 36.0 g/dL RDW 17.8 (H) 12.4 - 15.4 % Platelets 372 135 - 450 K/uL MPV 6.8 5.0 - 10.5 fL Neutrophils % 67.2 % Lymphocytes % 25.1 % Monocytes % 4.7 % Eosinophils % 2.3 % Basophils % 0.7 % Neutrophils Absolute 4.5 1.7 - 7.7 K/uL Lymphocytes Absolute 1.7 1.0 - 5.1 K/uL Monocytes Absolute 0.3 0.0 - 1.3 K/uL Eosinophils Absolute 0.2 0.0 - 0.6 K/uL Basophils Absolute 0.0 0.0 - 0.2 K/uL Basic Metabolic Panel w/ Reflex to MG Result Value Ref Range Sodium 138 136 - 145 mmol/L Potassium reflex Magnesium 4.2 3.5 - 5.1 mmol/L Chloride 102 99 - 110 mmol/L CO2 24 21 - 32 mmol/L Anion Gap 12 3 - 16 Glucose 94 70 - 99 mg/dL BUN 11 7 - 20 mg/dL CREATININE 0.8 0.6 - 1.1 mg/dL GFR Non- >60 >60 GFR >60 >60 Calcium 8.9 8.3 - 10.6 mg/dL Protime-INR Result Value Ref Range Protime 9.7 (L) 10.0 - 13.2 sec INR 0.84 (L) 0.86 - 1.14 APTT Result Value Ref Range aPTT 30.0 24.2 - 36.2 sec Lipase Result Value Ref Range Lipase 30.0 13.0 - 60.0 U/L Hepatic Function Panel Result Value Ref Range Total Protein 7.5 6.4 - 8.2 g/dL Alb 4.3 3.4 - 5.0 g/dL Alkaline Phosphatase 58 40 - 129 U/L ALT 8 (L) 10 - 40 U/L AST 29 15 - 37 U/L Total Bilirubin <0.2 0.0 - 1.0 mg/dL Bilirubin, Direct <0.2 0.0 - 0.3 mg/dL Bilirubin, Indirect see below 0.0 - 1.0 mg/dL TYPE AND SCREEN Result Value Ref Range ABO/Rh B NEG Antibody Screen NEG Your Imaging Results: CT ABDOMEN PELVIS W IV CONTRAST Additional Contrast? None Final Result 1. No acute intra-abdominopelvic abnormality. * Attachments The following attachments cannot be sent through Care Everywhere. * GI Bleeding: Lower (Syrian) documented in this encounter Assessments Diagnosis Rectal bleeding Hemorrhage of rectum and anus Additional Source Comments INFORMATION SOURCE (unrecogn ized section and content) DATE CREATED AUTHOR 01/13/2018 [facility] DATE CREATED AUTHOR AUTHOR'S ORGANIZ ATION 12/07/2022 [facility] DATE CREATED AUTHOR AUTHOR'S ORGANIZ ATION 11/13/2023 [facility] DATE CREATED AUTHOR AUTHOR'S ORGANIZ ATION 03/11/2024 [facility] Reason for Visit (unrecogniz ed section and content) Reason Comments Rectal Bleeding Specialty Diagnoses / Procedures Referred By Contac t Referred To Contact Cardiology Diagnoses Opioid use disorder Procedures Echocardiogram stress test Rufina Case [address] [place] [address] Referral ID Status Reason Start Date Expiration Date V isits Requested Visits Authorized [id number] Pending Review 04/15/2022 04/14/2023 1 1 Reason Comments Drug Overdose 1645 2 mg [id number] 2 mg Narcan Care Teams (unrecognized sec tion and content) Network Operations Technician Relationship Specialty Start Date End Date Edgar Jain MD [address] [place], [place] [id number] PCP - General Internal Medicine 02/10/20 Network Operations Technician Relationship Specialty Start Date End Date Edgar Jain MD [address] [place], [place] [id number] PCP - General Internal Medicine 02/10/20 Ordered Prescriptions (unrec ognized section and content) Prescription Sig Dispensed Refills Start Date End Da te Naloxone HCl (NALOXONE OPIATE OVERDOSE KIT) 1 each by Nasal route once for 1 dose 1 kit 0 07/08/2022 07/08/2022 Scheduled Active and Recently Administ ered Medications (unrecognized section and content) Medication Order 07/06/2022 07/07/2022 07/08/2022 0.9 % sodium chloride bolus (COMPLETED) 1,000 mL, IntraVENous, at 983.6 mL/hr, Administer over 61 Minutes, ONCE, On Rina 07/08/22 at 1915, For 1 dose 191 (New Bag - Prov ider: Heidy Marrero RN)2019 (Stopped - Provider: Heidy Marrero RN) lidocaine 1 % injection 5 mL 5 mL, IntraDERmal, ONCE, 1 dose, On Rina 07/08/22 at 1845 1922 (Not Given - Pr ovider: Heidy Marrero RN - Reason: Other) lidocaine PF 4 % injection 4 mL (COMPLETED) 4 mL, Inhalation, ONCE, 1 dose, On Rina 07/08/22 at 1900 1858 (Given - Provid er: Heidy Marrero RN) Continuous Medication Order 07/06/2022 07/07/2022 07/08/2022 naloxone (NARCAN) 2 mg in sodium chloride 0.9 % 500 mL infusion 0.4 mg/hr (100 mL/hr), IntraVENous, CONTINUOUS, Starting on Rina 07/08/22 at 1845, Until Discontinued 1921 (Not Given - Pr ovider: Heidy Marrero RN - Reason: Other) PRN Medication Order 07/06/2022 07/07/2022 07/08/2022 lidocaine viscous hcl (XYLOCAINE) 2 % solution 15 mL 15 mL, Mouth/Throat, EVERY 3 HOURS PRN, Starting on Rina 07/08/22 at 1842, Until Discontinued, Irritation No Frequency Medication Order 07/06/2022 07/07/2022 07/08/2022 naloxone (NARCAN) 2 MG/2ML injection (COMPLETED) 1 dose, Starting on Rina 07/08/22 at 1832, Until Tue07/09/22 at 0644, Shraddha Mathews: cabinet override, Shraddha Mathews: cabinet override 1835 (Given - Provid er: Shraddha Ca RN) FOR RECORDS PERTAINING TO PATIENTS WHO ARE OR HAVE BEEN ENROLLED IN A CHEMICAL DEPENDENCY/SUBSTANCEABUSE PROGRAM, SOME INFORMATION MAY BE OMITTED. This clinical summary was aggregated from multiple sources. Caution should be exercised in using it in the provision of clinical care. This summary normalizes information from multiple sources, and as a consequence, information in this document may materially change the coding, format and clinical context of patient data. In addition, data may be omitted in some cases. CLINICAL DECISIONS SHOULD BE BASED ON THE PRIMARY CLINICAL RECORDS. [employer] [facility]. provides no warranty or guarantee of the accuracy or completeness of information in this document.
--- NOTE | 2024-06-17 12:00 | XR_ITS ---
[address] [address] Patient Name: CONRAD GONZALEZ MRN: [id number] date: 1975 Sex: F Assigned Patient Location: ER Current Patient Location: ER Accession/Order Number: [id number] Exam Date: 06/17/2024 12:20 Report Date: 06/17/2024 13:13 At the request of: ELENA CAMPOS Procedure: XR chest 1V EXAM: XR chest 1V HISTORY: Weakness COMPARISON: None. TECHNIQUE: AP upright chest x-ray. FINDINGS: Lungs clear without infiltrate or edema. Normal heart size and mediastinal contour. No pleural effusion or pneumothorax. Slight elevation left diaphragm, left lung base clear. XR/XR chest 1V IMPRESSION: Negative chest x-ray, no acute abnormality. Clear lungs Electronically authenticated by: NARINDER KOEHLER Date: 06/17/2024 13:13
--- NOTE | 2024-06-17 12:00 | ECG_ITS ---
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
--- NOTE | 2024-06-17 12:01 | ED.GENADUL1 ---
HPI HPI - General Adult General Chief complaint: Upper Respiratory Infection Stated complaint: uti sympthoms sore throat Time Seen by Provider: 06/17/24 11:51 Source: patient Mode of arrival: Wheelchair Limitations: no limitations History of Present Illness HPI narrative: 49-year-old female presents for several complaints. First she thinks she might have a UTI, her urine has been cloudy. Second she has a sore throat and is worried about strep throat because several people at work have had it. She has been feeling weak. She does not complain to me of abdominal pain. Symptoms present for few days. Related Data Home Medications ?Medication ?Instructions ?Recorded ?Confirmed clonazepam 1 mg tablet 1 mg PO DAILY 06/17/24 06/17/24 hydroxychloroquine 200 mg tablet 200 mg PO DAILY 06/17/24 06/17/24 hydroxyzine pamoate 50 mg capsule 50 mg PO DAILY 06/17/24 06/17/24 omeprazole 40 mg capsule,delayed 40 mg PO DAILY 06/17/24 06/17/24 release sucralfate 1 gram tablet 1 g PO .with meals 06/17/24 06/17/24 sumatriptan succinate 50 mg tablet 50 mg PO DAILY 06/17/24 06/17/24 Allergies Allergy/AdvReac Type Severity Reaction Status Date / Time amoxicillin AdvReac Unknown Verified 12/26/23 13:41 Penicillins AdvReac Unknown Verified 12/26/23 13:41 Opioid HPI Opioid Management Most Recent Opioid Data: No Data to Display Review of Systems ROS Narrative A ten point review of systems is negative except as noted above. Exam Narrative Exam Narrative: Nurses note and vital signs reviewed and patient is not hypoxic. General: The patient appears in no apparent distress. Skin: Warm, dry, no pallor noted. There is no rash noted. Head: Normocephalic, atraumatic Eye: Normal conjunctiva, no drainage Ears, Nose, Mouth, and Throat: oral mucosa is moist. Nares patent. No pharyngeal erythema or exudate. Uvula midline. No swelling. Cardiovascular: Regular Rate and Rhythm Respiratory: Patient is in no distress, no accessory muscle use, lungs are clear to auscultation, no wheezing, rales or rhonchi Back: non-tender GI: Soft and nontender Musculoskeletal: The patient has no evidence of calf tenderness, no pitting edema, symmetrical pulses noted bilaterally Neurological: A&O, normal speech Psychiatric: Cooperative Constitutional Vital Signs, click to edit/add: Last Vital Signs Temp 98.0 F 06/17/24 11:48 Pulse 67 06/17/24 11:48 Resp 18 06/17/24 11:48 BP 116/52 06/17/24 11:48 Pulse Ox 100 06/17/24 11:48 O2 Del Method Room Air 06/17/24 11:48 Course Vital Signs Vital signs: Vital Signs Temperature 98.0 F 06/17/24 11:48 Pulse Rate 67 06/17/24 11:48 Respiratory Rate 18 06/17/24 11:48 Blood Pressure 116/52 06/17/24 11:48 Pulse Oximetry 100 06/17/24 11:48 Oxygen Delivery Method Room Air 06/17/24 11:48 Temperature 98.0 F 06/17/24 11:48 Pulse Rate 67 06/17/24 11:48 Respiratory Rate 18 06/17/24 11:48 Blood Pressure 116/52 06/17/24 11:48 Pulse Oximetry 100 06/17/24 11:48 Oxygen Delivery Method Room Air 06/17/24 11:48 Medical Decision Making MDM Narrative Medical decision making narrative: Her workup here is negative. Findings are discussed with the patient and her and she is able to be discharged home. At this point my clinical impression is that she likely has had a viral infection. Treatment diagnosis and follow-up were discussed thoroughly. Differential Diagnosis Differential Diagnosis: UTI, COVID, influenza, strep, viral illness Lab Data Lab results reviewed: Yes I reviewed the patient's lab results Labs: Lab Results 06/17/24 06/17/24 06/17/24 Range/Units 12:00 12:29 12:35 WBC 3.6 L (4.0-11.0) 10^3/uL RBC 3.14 L (4.20-5.40) 10^6/uL Hgb 9.9 L (12.0-16.0) g/dL Hct 29.3 L (36.0-48.0) % MCV 93.3 (81.0-99.0) fL MCH 31.5 (26.7-34.0) pg MCHC 33.8 (29.9-35.2) g/dL RDW 18.2 H (11.0-15.0) % Plt Count 266 (150-450) 10^3/uL MPV 8.9 L (9.5-13.5) fL Neut % (Auto) 49.5 (43.0-75.0) % Lymph % (Auto) 36.7 (20.5-60.0) % [place] % (Auto) 8.4 (1.7-12.0) % Eos % (Auto) 3.4 (0.9-7.0) % Baso % (Auto) 1.4 (0.2-2.0) % Neut # (Auto) 1.8 (1.4-6.5) 10^3/uL Lymph # (Auto) 1.3 (1.2-3.8) 10^3/uL [place] # (Auto) 0.3 (0.3-0.8) 10^3/uL Eos # (Auto) 0.1 (0.0-0.7) 10^3/uL Baso # (Auto) 0.1 (0.0-0.1) 10^3/uL Abs Immat Gran (auto) 0.02 (0.00-0.03) 10^3/uL Imm/Tot Granulo (auto) 0.6 H (0.0-0.5) % Sodium 135 L (136-145) mmol/L Potassium 4.9 (3.5-5.1) mmol/L Chloride 102 (98-107) mmol/L Carbon Dioxide 23.5 (21.0-32.0) mmol/L Anion Gap 14.4 BUN 15.0 (7.0-18.0) mg/dL Creatinine 0.91 (0.55-1.02) mg/dL Est GFR ( Amer) >60 (>=60 mL/min/1.73m^2) Est GFR (Non-Af Amer) >60 (>=60 mL/min/1.73m^2) BUN/Creatinine Ratio 16.5 Glucose 90 (74-106) mg/dL Calcium 7.9 L (8.5-10.1) mg/dL Urine Color Lt. yellow (YELLOW) Urine Clarity Clear (CLEAR) Urine pH 5.5 (5.0-9.0) Ur Specific [place] 1.015 (1.005-1.025) Urine Protein Negative (NEG/TRACE) mg/dL Urine Glucose (UA) Negative (NEGATIVE) mg/dL Urine Ketones Negative (NEGATIVE) mg/dL Urine Occult Blood Negative (NEGATIVE) Urine Nitrite Negative (NEGATIVE) Urine Bilirubin Negative (NEGATIVE) Urine Urobilinogen 0.2 (0.2-1.0) EU/dL Ur Leukocyte Esterase Negative (NEGATIVE) Urine RBC 0-2 (0-2) #/HPF Urine WBC 0-2 A (NONE SEEN) #/HPF Ur Squamous Epith Cells Rare (NONE/RARE) #/LPF Urine Crystals None seen (None Seen) #/HPF Urine Bacteria None seen (NONE SEEN) #/HPF Urine Casts None seen (NONE SEEN) #/LPF Urine Mucus Trace A (NONE SEEN) Influenza Type A Ag Negative Influenza Type B Ag Negative SARS-CoV-2 Ag (CV2AG) Negative (NEGATIVE) Streptococcus Screen Negative Imaging Data Chest x-ray: Radiologist's impression: ITS Impressions Chest X-Ray 06/17/24 12:00 IMPRESSION: Negative chest x-ray, no acute abnormality. Clear lungs Electronically authenticated by: NARINDER KOEHLER Date: 06/17/2024 13:[address] 06/17/24 13:07 IMPRESSION: No acute intracranial pathology. Electronically authenticated by: VINCENT TOMPKINS Date: 06/17/2024 14:07 ECG Data Attestation: I personally reviewed and interpreted this ECG as follows: (EKG on my interpretation shows sinus rhythm with a rate of 60 and no acute change) Discharge Plan Discharge Chief Complaint: Upper Respiratory Infection Clinical Impression: Viral upper respiratory infection Patient Disposition: Home, Self-Care Time of Disposition Decision: 14:26 Condition: Good Mode of Transportation: Private Vehicle Prescriptions / Home Meds: No Action sucralfate 1 gram tablet 1 g PO .with meals clonazepam 1 mg tablet 1 mg PO DAILY sumatriptan succinate 50 mg tablet 50 mg PO DAILY hydroxyzine pamoate 50 mg capsule 50 mg PO DAILY omeprazole 40 mg capsule,delayed release(DR/EC) 40 mg PO DAILY hydroxychloroquine 200 mg tablet 200 mg PO DAILY Print Language: Uzbek Instructions: Viral Syndrome (ED) Referrals: Physician,Non-Staff, MD [Primary Care Provider] - 1 week
[2024-06-17] MEDS: 0.9 % SODIUM CHLORIDE 1,000 ML 1000 ML IV (12:28)
[2024-06-17] MEDS: ONDANSETRON PF 4 MG/2 ML VIAL IV (12:28)
[2024-06-17 12:37] LABS: Basophils Absolute Auto 0.1 10^3/uL (0.0-0.1); Basophils Percent Auto 1.4 % (0.2-2.0); Eosinophils Absolute Auto 0.1 10^3/uL (0.0-0.7); Eosinophils Percent Auto 3.4 % (0.9-7.0); Hematocrit 29.3 % (36.0-48.0); Hemoglobin 9.9 g/dL (12.0-16.0); Immature Granulocytes Abs Auto 0.02 10^3/uL (0.00-0.03); Immature Granulocytes Pct Auto 0.6 % (0.0-0.5); Lymphocytes Absolute Auto 1.3 10^3/uL (1.2-3.8); Lymphocytes Percent Auto 36.7 % (20.5-60.0); Mean Corpuscular HGB Conc 33.8 g/dL (29.9-35.2); Mean Corpuscular Hemoglobin 31.5 pg (26.7-34.0); Mean Corpuscular Volume 93.3 fL (81.0-99.0); Mean Platelet Volume 8.9 fL (9.5-13.5); Monocytes Absolute Auto 0.3 10^3/uL (0.3-0.8); Monocytes Percent Auto 8.4 % (1.7-12.0); Neutrophils Absolute Auto 1.8 10^3/uL (1.4-6.5); Neutrophils Percent Auto 49.5 % (43.0-75.0); Platelet Count 266 10^3/uL (150-450); Red Blood Count 3.14 10^6/uL (4.20-5.40); Red Cell Distribution Width 18.2 % (11.0-15.0); White Blood Count 3.6 10^3/uL (4.0-11.0)
[2024-06-17 12:43] LABS: Bilirubin Urine NEGATIVE (NEGATIVE); Blood Urine NEGATIVE (NEGATIVE); Clarity Urine CLEAR (CLEAR); Color Urine LT. YELLOW (YELLOW); Glucose Urine UA NEGATIVE (NEGATIVE); Ketones Urine NEGATIVE (NEGATIVE); Leukocyte Esterase Urine NEGATIVE (NEGATIVE); Nitrite Urine NEGATIVE (NEGATIVE); Protein Urine NEGATIVE (NEG/TRACE); Specific Gravity Urine 1.015 (1.005-1.025); Urobilinogen Urine 0.2 EU/dL (0.2-1.0); pH Urine 5.5 (5.0-9.0)
[2024-06-17 12:46] LABS: Anion Gap 14.4; BUN Creatinine Ratio 16.5; Calcium 7.9 mg/dL (8.5-10.1); Carbon Dioxide 23.5 mmol/L (21.0-32.0); Chloride 102 mmol/L (98-107); Estimated GFR (African America >60 (>=60 mL/min/1.73m^2); Estimated GFR (Non-African Ame >60 (>=60 mL/min/1.73m^2); Glucose 90 mg/dL (74-106); Potassium 4.9 mmol/L (3.5-5.1); Sodium 135 mmol/L (136-145)
[2024-06-17 13:05] LABS: Internal Control Within Normal Limits; SARS-CoV-2 Ag NEGATIVE (NEGATIVE)
[2024-06-17 13:06] LABS: Bacteria Urine NONE SEEN #/HPF (NONE SEEN); Cast Seen? NONE SEEN #/LPF (NONE SEEN); Crystals Seen? None Seen #/HPF (None Seen); Mucus Urine TRACE (NONE SEEN); RBC Urine 0-2 #/HPF (0-2); Squamous Epithelial Cell Urine RARE #/LPF (NONE/RARE); WBC Urine 0-2 #/HPF (NONE SEEN)
--- NOTE | 2024-06-17 13:07 | CT_ITS ---
The [address] [address] Patient Name: CONRAD GONZALEZ MRN: [id number] date: 1975 Sex: F Assigned Patient Location: ER Current Patient Location: ER Accession/Order Number: [id number] Exam Date: 06/17/2024 13:28 Report Date: 06/17/2024 14:07 At the request of: ELENA CAMPOS Procedure: CT head/brain wo con EXAM: CT head/brain wo con HISTORY: Fell, hit head COMPARISON: None. TECHNIQUE: Axial CT images of the head were obtained. Coronal and sagittal reformats were provided. Dose reduction techniques were achieved by using automated exposure control and/or adjustment of mA and/or kV according to patient size and/or use of iterative reconstruction technique. FINDINGS: Acute: No hemorrhage, herniation, or hydrocephalus. No evidence of recent infarct. Brain: Brain parenchyma within normal limits in density and volume for age. Vessels: No abnormal intravascular density to suggest thrombosis. Bones: No suspicious lesion in the calvarium or skull base. Other: Extracranial soft tissues unremarkable. CT/CT head/brain wo con IMPRESSION: No acute intracranial pathology. Electronically authenticated by: VINCENT TOMPKINS Date: 06/17/2024 14:07
[2024-06-17 13:08] LABS: Influenza Virus A Antigen Negative; Influenza Virus B Antigen Negative; Internal Control Within Normal Limits; Strep A Antigen Screen Negative
== END 2024-06-17 14:39 | disposition home or self-care (01) ==
PROVIDERS: Emergency Provider Emergency Medicine
DX: J06.9 Acute upper respiratory infection, unspecified (principal); R53.1 Weakness; R82.90 Unspecified abnormal findings in urine
CPT/HCPCS: 36415; 70450; 71045; 80048; 81001; 85025; 87070; 87804; 87811; 87880; 93005; 96374; 99285; J2405

== ENCOUNTER 2024-07-18 11:22 | Emergency (ER) | payer OTHER, SELFPAY ==
[2024-07-18 11:29] VITALS: BP 120/85; PULSE 70; TEMP 37; O2SAT 100; BMI 25.0
--- OUTSIDE RECORDS SUMMARY | 2024-07-18 11:29 | XMS_ITS | CCD ---
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 Comment: The [facility]???s estimated glomerular filtration rate (eGFR) will [...] group of individuals. Performed By: #### L [id number] #### [facility] ([facility]) [address] [place] [address] Glucose [Mass/Vol] 82 mg/dL Normal 70-100 [facility] Comment on above: Performed By: #### L [id number] #### [facility] ([facility]) [address] [place] [address] Potassium [Moles/Vol] 3.4 mmol/L Low 3.5-5.1 [facility] Comment on above: Performed By: #### L [id number] #### [facility] ([facility]) [address] [place] [address] Sodium [Moles/Vol] 139 mmol/L Normal 136-145 [facility] Comment on above: Performed By: #### L [id number] #### [facility] ([facility]) [address] [place] [address] Urea nitrogen [Mass/Vol] 11 mg/dL Normal 7-25 [facility] Comment on above: Performed By: #### L [id number] #### [facility] ([facility]) [address] [place] [address] UREA NITROGEN/CREATININE (MASS RATIO) IN SER/PLAS 8.5 Normal [facility] Comment on above: Performed By: #### L [id number] #### [facility] ([facility]) [address] [place] [address] CBC WITH AUTO DIFFERENTIALon 02-09-2024 Basophils (Bld) [#/Vol] 0.05 10*3/uL Normal 0.00-0.20 [facility] Comment on above: Performed By: #### L [id number] ####[facility] ([facility])[address] [place] [address] Basophils/100 WBC (Bld) 1.0 % Normal 0.0-1.0 [facility] Comment on above: Performed By: #### L [id number] ####[facility] ([facility])[address] [place] [address] Eosinophils (Bld) [#/Vol] 0.07 10*3/uL Normal 0.00-0.50 [facility] Comment on above: Performed By: #### L [id number] ####[facility] ([facility])[address] [place] [address] Eosinophils/100 WBC (Bld) 1.4 % Normal 0.0-6.0 [facility] Comment on above: Performed By: #### L [id number] ####[facility] ([facility])[address] [place] [address] Erythrocyte distribution width (RBC) [Ratio] 13.6 % Normal 11.5-15.0 [facility] Comment on above: Performed By: #### L [id number] ####[facility] (BEAKER)[address] [place] [address] ERYTHROCYTE MEAN CORPUSCULAR HEMOGLOBIN CONCENTRATION (G/DL) BY AUTOMATED 32.3 g/dL Normal 32.0-35.0 [facility] Comment on above: Performed By: #### L [id number] ####[facility] ([facility])[address] [place] [address] Hematocrit (Bld) [Volume fraction] 39.0 % Normal 36.0-48.0 [facility] Comment on above: Performed By: #### L [id number] ####[facility] ([facility])[address] [place] [address] Hemoglobin (Bld) [Mass/Vol] 12.6 g/dL Normal 12.0-15.0 [facility] Comment on above: Performed By: #### L [id number] ####[facility] ([facility])[address] [place] [address] Immature granulocytes (Bld) [#/Vol] 0.02 10*3/uL Normal 0.00-0.20 [facility] Comment on above: Performed By: #### L [id number] ####[facility] (BEAKER)[address] [place] [address] Immature granulocytes/100 WBC (Bld) 0.4 % Normal 0.0-1.0 [facility] Comment on above: Performed By: #### L [id number] ####[facility] (BEAKER)[address] [place] [address] Lymphocytes (Bld) [#/Vol] 1.28 10*3/uL Normal 1.20-4.00 [facility] Comment on above: Performed By: #### L [id number] ####[facility] (BEAKER)[address] [place] [address] Lymphocytes/100 WBC (Bld) 24.9 % Normal 20.0-45.0 [facility] Comment on above: Performed By: #### L [id number] ####[facility] (BEAKER)[address] [place] [address] MCH (RBC) [Entitic mass] 27.6 pg Normal 27.0-33.0 [facility] Comment on above: Performed By: #### L [id number] ####[facility] (BEAKER)[address] [place] [address] MCV (RBC) [Entitic vol] 85.3 fL Normal 82.0-98.0 [facility] Comment on above: Performed By: #### L [id number] ####[facility] (BEAKER)[address] [place] [address] Monocytes (Bld) [#/Vol] 0.45 10*3/uL Normal 0.10-1.00 [facility] Comment on above: Performed By: #### L [id number] ####[facility] ([facility])[address] [place] [address] Monocytes/100 WBC (Bld) 8.7 % Normal 5.0-12.0 [facility] Comment on above: Performed By: #### L [id number] ####[facility] (BEAKER)[address] [place] [address] Neutrophils (Bld) [#/Vol] 3.28 10*3/uL Normal 1.60-7.60 [facility] Comment on above: Performed By: #### L [id number] ####[facility] (BEAKER)[address] [place] [address] Neutrophils/100 WBC (Bld) 63.6 % Normal 40.0-72.0 [facility] Comment on above: Performed By: #### L [id number] ####[facility] (BEAKER)[address] [place] [address] NRBC (PER 100 WBCS) BY AUTOMATED COUNT 0.0 % Normal 0 [facility] Comment on above: Performed By: #### L [id number] ####[facility] (BEAKER)[address] [place] [address] PLATELETS (10*3/UL) IN BLOOD AUTOMATED COUNT 321 10*3/uL Normal 150-400 [facility] Comment on above: Performed By: #### L [id number] ####[facility] ([facility])[address] [place] [address] RBC (Bld) [#/Vol] 4.57 10*6/uL Normal 3.80-5.00 [facility] Comment on above: Performed By: #### L [id number] ####[facility] ([facility])[address] [place] [address] WBC (Bld) [#/Vol] 5.15 10*3/uL Normal 4.00-10.60 [facility] Comment on above: Performed By: #### L [id number] ####[facility] ([facility])[address] [place] [address] CT ABDOMEN PELVIS W IV CONTR Shanda [...] reasonably achievable. Electronically signed: Edgar Butler. Normal [facility] EDNURSon 02-09-2024 EDNURS Pt ambulates to [facility] with slow, steady gait. Presents anxious, pale and ill appearing states having an ulcer disorder requiring multiple surgical repairs, including being sent to [facility] for a jaleel patch (pt lived in [place] at the time). Pt states not having a duodenum and that her stomach is on the other side. Pt thinks she probably has another ulcer as she is also having bright red blood in her stool. PMH also includes Lupus and recently tested positive for Covid. Covid Positive in triage. Normal [facility] EDPROVon 02-09-2024 EDPROV [facility] [address] [facility] [address] EMERGENCY DEPARTMENT ENCOUNTER CHIEF COMPLAINT Chief Complaint [...] Pulmonary: Effort: (more content not included)... Normal [facility] HEPATIC FUNCTION PANELon Albumin [Mass/Vol] 4.5 g/dL Normal 3.5-5.7 [facility] Comment on above: Performed By: #### L [id number] #### [facility] ([facility]) [address] [place] [address] ALP [Catalytic activity/Vol] 45 U/L Normal 34-104 [facility] Comment on above: Performed By: #### L [id number] #### [facility] ([facility]) [address] [place] [address] ALT [Catalytic activity/Vol] 14 U/L Normal 7-52 [facility] Comment on above: Performed By: #### L [id number] #### [facility] ([facility]) [address] [place] [address] AST [Catalytic activity/Vol] 25 U/L Normal 13-39 [facility] Comment on above: Performed By: #### L [id number] #### [facility] ([facility]) [address] [place] [address] Bilirubin [Mass/Vol] 0.3 mg/dL Normal 0.3-1.0 [facility] Comment on above: Performed By: #### L [id number] #### [facility] ([facility]) [address] [place] [address] Magnesium [Mass/Vol] 0.1 mg/dL Normal 0-0.2 [facility] Comment on above: Performed By: #### L [id number] #### [facility] ([facility]) [address] [place] [address] Protein [Mass/Vol] 7.2 g/dL Normal 6.0-8.3 [facility] Comment on above: Performed By: #### L [id number] #### [facility] ([facility]) [address] [place] [address] LACTIC ACID WITH 4 HOUR REFL EXon 02-09-2024 LACTATE (MMOL/L) IN SER/PLAS 1.1 mmol/L Normal 0.5-2.2 [facility] Comment on above: Performed By: #### L [id number] ####[facility] ([facility])[address] [place] [address] LIPASEon 02-09-2024 LIPASE (U/L) IN SER/PLAS 61 U/L Normal 11-82 [facility] Comment on above: Performed By: #### L [id number] #### [facility] ([facility]) [address] [place] [address] TROPONIN Ion 02-09-2024 Troponin I.cardiac [Mass/Vol] 0.00 ng/mL Normal 0.00-0.04 [facility] Comment on above: Performed By: #### L [id number] #### [facility] ([facility]) [address] [place] [address] URINALYSIS WITH REFLEX CULTU REon 02-09-2024 BILIRUBIN, TOTAL PRESENCE IN URINE Negative Normal Negative [facility] Comment on above: Order Comment: Micro scopics not performed on urines with negative chemical reactions unless requested on original order. Performed By: #### L [id number] ####[facility] (BEAKER)[address] [place] [address] Clarity (U) Clear Normal Clear [facility] Comment on above: Order Comment: Micro scopics not performed on urines with negative chemical reactions unless requested on original order. Performed By: #### L [id number] ####[facility] ([facility])[address] [place] [address] Color (U) Yellow Normal Yellow [facility] Comment on above: Order Comment: Micro scopics not performed on urines with negative chemical reactions unless requested on original order. Performed By: #### L [id number] ####[facility] ([facility])[address] [place] [address] Glucose (U) [Mass/Vol] Negative Normal Negative [facility] Comment on above: Order Comment: Micro scopics not performed on urines with negative chemical reactions unless requested on original order. Performed By: #### L [id number] ####[facility] ([facility])[address] [place] [address] HEMOGLOBIN PRESENCE IN URINE Negative Normal Negative [facility] Comment on above: Order Comment: Micro scopics not performed on urines with negative chemical reactions unless requested on original order. Performed By: #### L [id number] ####[facility] ([facility])[address] [place] [address] Ketones Ql (U) Negative Normal Negative [facility] Comment on above: Order Comment: Micro scopics not performed on urines with negative chemical reactions unless requested on original order. Performed By: #### L [id number] ####[facility] ([facility])[address] [place] [address] LEUKOCYTE ESTERASE PRESENCE IN URINE BY TEST STRIP Negative Normal Negative [facility] Comment on above: Order Comment: Micro scopics not performed on urines with negative chemical reactions unless requested on original order. Performed By: #### L [id number] ####[facility] ([facility])[address] [place] [address] NITRITE PRESENCE IN URINE Negative Normal Negative [facility] Comment on above: Order Comment: Micro scopics not performed on urines with negative chemical reactions unless requested on original order. Performed By: #### L [id number] ####[facility] (BEAKER)[address] [place] [address] pH (U) 6.0 [pH] Normal 5.0-8.0 [facility] Comment on above: Order Comment: Micro scopics not performed on urines with negative chemical reactions unless requested on original order. Performed By: #### L [id number] ####[facility] ([facility])[address] [place] [address] Protein (U) [Mass/Vol] Negative Normal Negative [facility] Comment on above: Order Comment: Micro scopics not performed on urines with negative chemical reactions unless requested on original order. Performed By: #### L [id number] ####[facility] ([facility])[address] [place] [address] Specific gravity (U) [Rel density] 1.010 Low 1.015-1.020 [facility] Comment on above: Order Comment: Micro scopics not performed on urines with negative chemical reactions unless requested on original order. Performed By: #### L [id number] ####[facility] ([facility])[address] [place] [address] Provider Letteron 11-11-2023 Provider Letter November 11, 2023 [place] [address] : 1975 Dear Conrad Gonzalez , We have been trying to reach you with no success. It is important that you return our call upon receiving this letter. Also, at the time of your call, please provide us with your current information. Thank you for your prompt attention to this matter. Sincerely, [facility] [address] [place] [address], [place] [address] [facility] HPon 06-06-2023 -- Attestation signed by Di [...] PROT B12/Folate/Iron studies: No results found for: [id number], FOLATE, IRON, TIBC, UIBC, IRONSAT, FERRITIN ASSESSMENT AND PLAN Conrad Gonzalez is a 48 y.o. female with history of 25 mg melena with gastrojejunostomy. Patient had an EGD on 05/02/2023 that showed clean-based anastomotic ulcer. Patient is here for repeat EGD to assess for healing. Plan: EGD Normal [facility] POCT GLUCOSE METER UNSOLICIT ED RESULTSon 06-06-2023 Glucose [Mass/Vol] 93 mg/dL Normal 70-105 [facility] Comment on above: Order Comment: Re PT T-LA wrong order Result Comment: jenc [email or web address] Performed By: #### L [id number] #### [facility] (BEAKER) [address] [place] [address] 30on 05-03-2023 30 Problem: Neurosensor y - [...] patient/family on patient safety, including physical limitations [place] fall precautions as indicated by assessment Identify cognitive and physical deficits and behaviors that affect risk of falls Instruct patient to call for assistance with activity based on assessment Problem: Discharge Planning Goal: Discharge to home or other facility with appropriate resources Outcome: Progressing Flowsheets (Taken 10 (more content not included)... Normal [facility] ANTI-XA (HEPARIN LEVEL)on HEPARIN UNFRACTIONATED (U/ML) IN PPP BY CHROMOGENIC METHOD 0.61 IU/mL Normal 0.3-0.7 [facility] Comment on above: Result Comment: Talita roxaban and Apixaban will interfere with the anti Xa assay used to monitor UFH and LMWH. Performed By: #### L [id number] #### [facility] ([facility]) [address] [place] [address] BASIC METABOLIC PANELon 04-24 Anion gap [Moles/Vol] 9 mmol/L Normal 7-20 [facility] Comment on above: Performed By: #### L [id number] #### [facility] ([facility]) [address] [place] [address] Calcium [Mass/Vol] 8.8 mg/dL Normal 8.6-10.3 [facility] Comment on above: Performed By: #### L [id number] #### [facility] (BEAKER) [address] [place] [address] Chloride [Moles/Vol] 105 mmol/L Normal 98-107 [facility] Comment on above: Performed By: #### L [id number] #### [facility] (BEAKER) [address] [place] [address] CO2 [Moles/Vol] 25 mmol/L Normal 21-31 [facility] Comment on above: Performed By: #### L [id number] #### [facility] (BEAKER) [address] [place] [address] Creatinine [Mass/Vol] 0.82 mg/dL Normal 0.60-1.20 [facility] Comment on above: Performed By: #### L [id number] #### [facility] (BEAKER) [address] [place] [address] GLOMERULAR FILTRATION RATE ML/MIN/1.73 SQ M.PREDICTED 89.3 mL/min/1.73m*2 Normal >60.0 [facility] Comment on above: Result Comment: [facility]???s estimated glomerular filtration rate (eGFR) will [...] individuals. Performed By: #### L [id number] #### [facility] ([facility]) [address] [place] [address] Glucose [Mass/Vol] 133 mg/dL High 70-100 [facility] Comment on above: Performed By: #### L [id number] #### [facility] ([facility]) [address] [place] [address] Potassium [Moles/Vol] 3.6 mmol/L Normal 3.5-5.1 [facility] Comment on above: Performed By: #### L [id number] #### [facility] ([facility]) [address] [place] [address] Sodium [Moles/Vol] 135 mmol/L Low 136-145 [facility] Comment on above: Performed By: #### L [id number] #### [facility] ([facility]) [address] [place] [address] Urea nitrogen [Mass/Vol] 9 mg/dL Normal 7-25 [facility] Comment on above: Performed By: #### L [id number] #### [facility] ([facility]) [address] [place] [address] UREA NITROGEN/CREATININE (MASS RATIO) IN SER/PLAS 11.0 Normal [facility] Comment on above: Performed By: #### L [id number] #### [facility] ([facility]) [address] [place] [address] CBCon 05-03-2023 Erythrocyte distribution width (RBC) [Ratio] 13.1 % Normal 11.5-15.0 [facility] Comment on above: Performed By: #### L [id number] ####[facility] ([facility])[address] [place] [address] ERYTHROCYTE MEAN CORPUSCULAR HEMOGLOBIN CONCENTRATION (G/DL) BY AUTOMATED 33.0 g/dL Normal 32.0-35.0 [facility] Comment on above: Performed By: #### L [id number] ####[facility] ([facility])[address] [place] [address] Hematocrit (Bld) [Volume fraction] 35.5 % Low 36.0-48.0 [facility] Comment on above: Performed By: #### L [id number] ####[facility] ([facility])[address] [place] [address] Hemoglobin (Bld) [Mass/Vol] 11.7 g/dL Low 12.0-15.0 [facility] Comment on above: Performed By: #### L [id number] ####[facility] ([facility])[address] [place] [address] MCH (RBC) [Entitic mass] 28.5 pg Normal 27.0-33.0 [facility] Comment on above: Performed By: #### L [id number] ####[facility] ([facility])[address] [place] [address] MCV (RBC) [Entitic vol] 86.6 fL Normal 82.0-98.0 [facility] Comment on above: Performed By: #### L [id number] ####[facility] ([facility])[address] [place] [address] PLATELETS (10*3/UL) IN BLOOD AUTOMATED COUNT 251 10*3/uL Normal 150-400 [facility] Comment on above: Performed By: #### L [id number] ####[facility] ([facility])[address] [place] [address] RBC (Bld) [#/Vol] 4.10 10*6/uL Normal 3.80-5.00 [facility] Comment on above: Performed By: #### L [id number] ####[facility] (AKER)[address] [place] [address] WBC (Bld) [#/Vol] 5.14 10*3/uL Normal 4.00-10.60 [facility] Comment on above: Performed By: #### L [id number] ####[facility] (AKER)[address] [place] [address] NURSNOTEon 05-03-2023 PETRA Reviewed discharge paperwork with pt; pt states she wants to take all morning meds once she is home, pt med list updated to reflect this statement. Pt expresses understanding of discharge instructions and f/u appt made. Normal [facility] Orders Onlyon 05-03-2023 Orders Only [id number] Joi Gonzalez 1975 F Date Provider Department Center 05/03/20237-CARMEN GARCIA [facility] No family history on file [facility] 30on 05-02-2023 30 The patient is Moderately [...] and behaviors that affect risk of falls [place] fall precautions as indicated by assessment Educate patient/family on patient safety, including physical limitations Instruct patient to call for assistance with activity based on assessment Modify environment to reduce risk of injury Consider OT/PT consult to assist with strengthening/mobility Problem: Discharge Planning Goal: Discharge to home or other facility with appropriate resources Outcome: Progressing Flowsheets (Taken 04/30/2023 0843 by Marilu Vallecillo, RN) Discharge to home or other facility with appropriate resources: Identify barriers to discharge with patient and caregiver Arrange for needed discharge resources and transportation as appropriate Identify discharge learning needs (meds, wound care, etc) Problem: Chronic Conditions and Co-morbidities Goal: Patient's chronic conditions and co-morbidity symptoms are monitored and maintained or improved Outcome: Progressing Flowsheets (Taken 05/01/20232014 by Dee Bgaley RN) Care Plan - Patient's Chronic Conditions [...] and prevent overall improvement and discharge Normal [facility] 30 The patient is Moderately Stable - Low risk of patient condition declining or worsening The patient's goals for the shift include comfort The clinical goals for the shift include safety Over the shift, the patient did not make progress toward the following goals. Barriers to progression include na. Recommendations to address these barriers include na. Normal [facility] ANTI-XA (HEPARIN LEVEL)on HEPARIN UNFRACTIONATED (U/ML) IN PPP BY CHROMOGENIC METHOD 0.92 IU/mL Critically high 0.3-0.7 [facility] Comment on above: Order Comment: Check anti-Xa level every 6 hours while on heparin infusion, or per protocol. Result Comment: Talita roxaban and Apixaban will interfere with the anti Xa assay used to monitor UFH and LMWH. Performed By: #### L [id number] ####[facility] (BEAKER)[address] [place] [address] BASIC METABOLIC PANELon 10-0 Anion gap [Moles/Vol] 8 mmol/L Normal 7-20 [facility] Comment on above: Performed By: #### L [id number] ####[facility] ([facility]AKER)[address] [place] [address] Calcium [Mass/Vol] 7.9 mg/dL Low 8.6-10.3 [facility] Comment on above: Performed By: #### L [id number] ####[facility] (BEAKER)[address] [place] [address] Chloride [Moles/Vol] 108 mmol/L High 98-107 [facility] Comment on above: Performed By: #### L [id number] ####[facility] (BEAKER)[address] [place] [address] CO2 [Moles/Vol] 23 mmol/L Normal 21-31 [facility] Comment on above: Performed By: #### L [id number] ####[facility] ([facility] [place] [address] Creatinine [Mass/Vol] 0.76 mg/dL Normal 0.60-1.20 [facility] Comment on above: Performed By: #### L [id number] ####[facility] ([facility])[address] [place] [address] GLOMERULAR FILTRATION RATE ML/MIN/1.73 SQ M.PREDICTED 97.8 mL/min/1.73m*2 Normal >60.0 [facility] Comment on above: Result Comment: The [facility]???s estimated glomerular filtration rate (eGFR) will [...] of individuals. Performed By: #### L [id number] ####[facility] (BEAKER)[address] [place] [address] Glucose [Mass/Vol] 95 mg/dL Normal 70-100 [facility] Comment on above: Performed By: #### L [id number] ####[facility] ([facility])[address] [place] [address] Potassium [Moles/Vol] 3.9 mmol/L Normal 3.5-5.1 [facility] Comment on above: Performed By: #### L [id number] ####[facility] ([facility])[address] [place] [address] Sodium [Moles/Vol] 135 mmol/L Low 136-145 [facility] Comment on above: Performed By: #### L [id number] ####[facility] ([facility])[address] [place] [address] Urea nitrogen [Mass/Vol] 7 mg/dL Normal 7-25 [facility] Comment on above: Performed By: #### L [id number] ####[facility] ([facility])[address] [place] [address] UREA NITROGEN/CREATININE (MASS RATIO) IN SER/PLAS 9.2 Normal [facility] Comment on above: Performed By: #### L [id number] ####[facility] ([facility])[address] [place] [address] CBCon 05-02-2023 Erythrocyte distribution width (RBC) [Ratio] 13.2 % Normal 11.5-15.0 [facility] Comment on above: Performed By: #### L [id number] ####[facility] ([facility])[address] [place] [address] ERYTHROCYTE MEAN CORPUSCULAR HEMOGLOBIN CONCENTRATION (G/DL) BY AUTOMATED 32.3 g/dL Normal 32.0-35.0 [facility] Comment on above: Performed By: #### L [id number] ####[facility] ([facility])[address] [place] [address] Hematocrit (Bld) [Volume fraction] 36.2 % Normal 36.0-48.0 [facility] Comment on above: Performed By: #### L [id number] ####[facility] ([facility])[address] [place] [address] Hemoglobin (Bld) [Mass/Vol] 11.7 g/dL Low 12.0-15.0 [facility] Comment on above: Performed By: #### L [id number] ####[facility] ([facility])[address] [place] [address] MCH (RBC) [Entitic mass] 28.1 pg Normal 27.0-33.0 [facility] Comment on above: Performed By: #### L [id number] ####[facility] ([facility])[address] [place] [address] MCV (RBC) [Entitic vol] 86.8 fL Normal 82.0-98.0 [facility] Comment on above: Performed By: #### L [id number] ####[facility] ([facility])[address] [place] [address] PLATELETS (10*3/UL) IN BLOOD AUTOMATED COUNT 264 10*3/uL Normal 150-400 [facility] Comment on above: Performed By: #### L [id number] ####[facility] ([facility])[address] [place] [address] RBC (Bld) [#/Vol] 4.17 10*6/uL Normal 3.80-5.00 [facility] Comment on above: Performed By: #### L [id number] ####[facility] ([facility])[address] [place] [address] WBC (Bld) [#/Vol] 4.11 10*3/uL Normal 4.00-10.60 [facility] Comment on above: Performed By: #### L [id number] ####[facility] ([facility])[address] [place] [address] [place] ABDOMEN PELVIS W IV CONTR Shanda [...] vein thrombus. Electronically signed: Mayank Whaley. Normal [facility] HEMOGLOBIN AND HEMATOCRIT, B LOODon 05-02-2023 Hematocrit (Bld) [Volume fraction] 36.9 % Normal 36.0-48.0 [facility] Comment on above: Performed By: #### L [id number] #### [facility] ([facility]) [address] [place] [address] Hemoglobin (Bld) [Mass/Vol] 11.6 g/dL Low 12.0-15.0 [facility] Comment on above: Performed By: #### L [id number] #### [facility] ([facility]) [address] [place] [address] HISTOLOGY - TISSUE EXAMon LAB AP ADDENDUM 1 Normal [facility] Comment on above: Result Comment: A. I mmunostain for H. pylori is negative. Addendum electronically signed by Rosalia Cameron MD on 05/30/2023 at 5:08 PM Performed By: #### L [id number] #### [facility] ([facility]) [address] [place] [address] LAB AP ASR DISCLAIMER The interpretation of [...] the Clinical Laboratory Improvement Amendments of 1998. [facility] Comment on above: Performed By: #### L [id number] #### [facility] ([facility]) [address] [place] [address] LAB AP CASE REPORT Normal [facility] Comment on above: Result Comment: Surg ical Pathology Case: [id number] Authorizing Provider: Di Amaya MD Collected: 05/02/2023 1257 Ordering Location: [facility] Clinical Observation Received: 05/02/2023 1503 Unit Pathologist: Rosalia Cameron MD Specimens: A) - Gastric, GASTRIC RULE OUT H.PYLORI B) - Small Intestine, Duodenum, DUODENUM RULE OUT CELIAC C) - Large Intestine, Right/Ascending Colon, ASCENDING COLON POLYP D) - Large Intestine, RANDOM COLON RULE OUT MICROSCOPIC COLITITIS, IBD Performed By: #### L [id number] #### [facility] ([facility]) [address] [place] [address] LAB AP CLINICAL INFORMATION Order Diagnoses [facility] Comment on above: Result Comment: N39. 0 - Urinary tract infection without hematuria, site unspecified [ICD-10-CM] R10.9 - Abdominal pain, unspecified abdominal location [ICD-10-CM] R10.31 - Right lower quadrant abdominal pain [ICD-10-CM] R19.7 - Bloody diarrhea [ICD-10-CM] Performed By: #### L [id number] #### [facility] ([facility]) [address] [place] [address] LAB AP DIAGNOSIS COMMENT Normal [facility] Comment on above: Result Comment: A. I mmunostain for H. pylori is pending; results will be reported in an addendum. Performed By: #### L [id number] #### [facility] ([facility])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 Cocaine Ql (U) Positive Abnormal Negative [facility] Comment on above: Performed By: #### L [id number] #### [facility] ([facility]) [address] [facility] [place] [address] METHADONE (PRESENCE) IN URINE BY SCREEN METHOD Negative Normal Negative [facility] Comment on above: Performed By: #### L [id number] #### [facility] ([facility]) [address] [facility] [place] [address] OPIATES (PRESENCE) IN URINE BY SCREEN METHOD Negative Normal Negative [facility] Comment on above: Performed By: #### L [id number] #### [facility] ([facility]) [address] [place] [address] PHENCYCLIDINE PRESENCE IN URINE BY SCREEN METHOD Negative Normal Negative [facility] Comment on above: Performed By: #### L [id number] #### [facility] ([facility]) [address] [place] [address] Propoxyphene Screen Ql (U) Negative Normal Negative [facility] Comment on above: Performed By: #### L [id number] #### [facility] ([facility]) [address] [place] [address] TRICYCLIC ANTIDEPRESSANTS (PRESENCE) IN URINE Positive Abnormal Negative [facility] Comment on above: Performed By: #### L [id number] #### [facility] ([facility]) [address] [place] [address] URINALYSIS WITH MICROSCOPICo n 04-30-2023 BILIRUBIN, TOTAL PRESENCE IN URINE Negative Normal Negative [facility] Comment on above: Performed By: #### L [id number] ####[facility] ([facility])[address] [place] [address] Clarity (U) Slightly Cloudy Abnormal Clear [facility] Comment on above: Performed By: #### L [id number] ####[facility] ([facility])[address] [place] [address] Color (U) Yellow Normal Yellow [facility] Comment on above: Performed By: #### L [id number] ####[facility] ([facility])[address] [place] [address] Glucose (U) [Mass/Vol] Negative Normal Negative [facility] Comment on above: Performed By: #### L [id number] ####[facility] ([facility])[address] [place] [address] HEMOGLOBIN PRESENCE IN URINE Negative Normal Negative [facility] Comment on above: Performed By: #### L [id number] ####[facility] ([facility])[address] [place] [address] Ketones Ql (U) Negative Normal Negative [facility] Comment on above: Performed By: #### L [id number] ####[facility] (BEAKER)[address] [place] [address] LEUKOCYTE ESTERASE PRESENCE IN URINE BY TEST STRIP Small Abnormal Negative [facility] Comment on above: Performed By: #### L [id number] ####[facility] (BEAKER)[address] [place] [address] MUCUS (#/HPF) IN URINE SEDIMENT Few Normal None Seen, Occasional, Few [facility] Comment on above: Performed By: #### L [id number] ####[facility] (BEAKER)[address] [place] [address] NITRITE PRESENCE IN URINE Positive Abnormal Negative [facility] Comment on above: Performed By: #### L [id number] ####[facility] (BEAKER)[address] [place] [address] pH (U) 6.0 [pH] Normal 5.0-8.0 [facility] Comment on above: Performed By: #### L [id number] ####[facility] (BEAKER)[address] [place] [address] Protein (U) [Mass/Vol] Negative Normal Negative [facility] Comment on above: Performed By: #### L [id number] ####[facility] (BEAKER)[address] [place] [address] RBC (#/HPF) IN URINE SEDIMENT 0-2 Abnormal None Seen [facility] Comment on above: Performed By: #### L [id number] ####[facility] (BEAKER)[address] [place] [address] Specific gravity (U) [Rel density] 1.018 Normal 1.015-1.020 [facility] Comment on above: Performed By: #### L [id number] ####[facility] (BEAKER)[address] [place] [address] SQUAMOUS EPITHELIAL CELLS (#/HPF) IN URINE SEDIMENT Moderate Abnormal None Seen, Occasional [facility] Comment on above: Performed By: #### L [id number] ####[facility] ([facility])[address] [place] [address] WBC (LEUKOCYTE) (#/HPF) IN URINE SEDIMENT 21-50 Abnormal None Seen [facility] Comment on above: Performed By: #### L [id number] ####[facility] ([facility] [place] [address] URINE CULTURE, ROUTINEon Bacteria identified Cx Nom (U) Abnormal [facility] Comment on above: Result Comment: ESCH ERICHIA COLI >100,000 CFU/Ml Escherichia coli ESCHERICHIA COLI >100,000 CFU/Ml Escherichia coli Second Morphology ENTEROCOCCUS FAECALIS 50,000 - 100,000 CFU/Ml Enterococcus faecalis Susceptibility to Follow Performed By: #### L [id number] #### [facility] ([facility]) [address] [place] [address] EDNURSon 03-23-2023 EDNURS Mode of arrival (squ ad #, walk in, police, etc): walk in Chief complaint(s): multiple complaints Arrival Note (brief scenario, treatment LABORATORY MONITOR, 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 Reports fullness to throat makes it feels like she can't breath. Reports white nasal drainage, blisters, and itching. All symptoms for 3-4 weeks. Patient was recently diagnosed with lupus 1.5 years ago. Normal [facility] EDPROVon 03-23-2023 EDPROV HPI Chief Complaint [...] no guarding. (more content not included)... Normal [facility] MONONUCLEOSIS SCREENon 03-23 HETEROPHILE ANTIBODIES Negative Normal Negative [facility] Comment on above: Performed By: #### L [id number] ####[facility] (BEAKER)[address] [place] [address] CBC AUTO DIFFon 12-06-2022 BASO # 0.1 103/ul Normal 0.0-0.1 [facility] Comment on above: Performed By: #### C BC #### [facility] [address] [address] [address] Love Eaton Basophils/100 WBC (Bld) 0.8 % Normal 0.2-2.0 [facility] Comment on above: Performed By: #### C BC #### [facility] [address] [address] [address] Love Eaton EO # 0.1 103/ul Normal 0.0-0.7 [facility] Comment on above: Performed By: #### C BC #### [facility] [address] [address] [address] Love Eaton Eosinophils/100 WBC (Bld) 1.4 % Normal 0.9-7.0 [facility] Comment on above: Performed By: #### C BC #### [facility] [address] [place] [address] Dr. Love Eaton Erythrocyte distribution width (RBC) [Ratio] 13.9 % Normal 11.0-15.0 [facility] Comment on above: Performed By: #### C BC #### [facility] [address] [place] [address] Dr. Love Eaton Hematocrit (Bld) [Volume fraction] 36.6 % Normal 36.0-48.0 [facility] Comment on above: Performed By: #### C BC #### [facility] [address] [place] [address] Dr. Love Eaton Hemoglobin (Bld) [Mass/Vol] 11.7 g/dL Critically low 12.0-16.0 [facility] Comment on above: Performed By: #### C BC #### [facility] [address] [address] [address] Love Eaton IG # 0.03 10e3/ul Normal 0.00-0.03 [facility] Comment on above: Performed By: #### C BC #### [facility] [address] [address] [address] Love Eaton IG % 0.5 % Normal 0.0-0.5 [facility] Comment on above: Performed By: #### C BC #### [facility] [address] [place] [address] Dr. Love Eaton LYMPH # 1.8 103/ul Normal 1.2-3.8 [facility] Comment on above: Performed By: #### C BC #### [facility] [address] [place] [address] Dr. Love Eaton Lymphocytes/100 WBC (Bld) 27.7 % Normal 20.5-60.0 [facility] Comment on above: Performed By: #### C BC #### [facility] [address] [place] [address] Dr. Love Eaton MANUAL DIFF REQ NO Normal [facility] Comment on above: Performed By: #### C BC #### [facility] [address] [place] [address] Dr. Love Eaton MCH (RBC) [Entitic mass] 28.3 pg Normal 26.7-34.0 [facility] Comment on above: Performed By: #### C BC #### [facility] [address] [place] [address] Dr. Love Eaton MCHC (RBC) [Mass/Vol] 32.0 g/dL Normal 29.9-35.2 [facility] Comment on above: Performed By: #### C BC #### [facility] [address] [place] [address] Dr. Love Eaton MCV (RBC) [Entitic vol] 88.6 fL Normal 81.0-99.0 [facility] Comment on above: Performed By: #### C BC #### [facility] [address] [place] [address] Dr. Love Eaton MONO # 0.4 103/ul Normal 0.3-0.8 [facility] Comment on above: Performed By: #### C BC #### [facility] [address] [place] [address] Dr. Love Eaton Monocytes/100 WBC (Bld) 6.7 % Normal 1.7-12.0 [facility] Comment on above: Performed By: #### C BC #### [facility] [address] [address] [address] Love Eaton NEUT # 4.1 103/ul Normal 1.4-6.5 [facility] Comment on above: Performed By: #### C BC #### [facility] [address] [address] [address] Love Eaton Neutrophils/100 WBC (Bld) 62.9 % Normal 43.0-75.0 [facility] Comment on above: Performed By: #### C BC #### [facility] [address] [place] [address] Dr. Love Eaton Platelet mean volume (Bld) [Entitic vol] 8.7 fL Critically low 9.5-13.5 [facility] Comment on above: Performed By: #### C BC #### [facility] [address] [place] [address] Dr. Love Eaton PLT 295 103/ul Normal 150-450 [facility] Comment on above: Performed By: #### C BC #### [facility] [address] [place] [address] Dr. Love Eaton RBC 4.13 106/ul Critically low 4.20-5.40 [facility] Comment on above: Performed By: #### C BC #### [facility] [address] [place] [address] Dr. Love Eaton WBC 6.5 103/ul Normal 4.0-11.0 [facility] Comment on above: Performed By: #### C BC #### [facility] [address] [place] [address] Dr. Love Eaton PROF 14(COMP METB)on 023 Albumin [Mass/Vol] 3.7 g/dL Normal 3.4-5.0 [facility] Comment on above: Performed By: #### C MP #### [facility] [address] [place] [address] Dr. Love Eaton Albumin/Globulin [Mass ratio] 1.1 {ratio} Normal [facility] Comment on above: Performed By: #### C MP #### [facility] [address] [place] [address] Dr. Love Eaton ALP [Catalytic activity/Vol] 80 U/L Normal 46-116 [facility] Comment on above: Performed By: #### C MP #### [facility] [address] [address] [address] Love Eaton ALT [Catalytic activity/Vol] 22 U/L Normal 14-59 [facility] Comment on above: Performed By: #### C MP #### [facility] [address] [place] [address] Dr. Love Eaton Anion gap [Moles/Vol] 11.3 mmol/L Normal [facility] Comment on above: Performed By: #### C MP #### [facility] [address] [place] [address] Dr. Love Eaton AST [Catalytic activity/Vol] 17 U/L Normal 15-37 [facility] Comment on above: Performed By: #### C MP #### [facility] [address] [place] [address] Dr. Love Eaton Bilirubin [Mass/Vol] 0.2 mg/dL Normal 0.2-1.0 [facility] Comment on above: Performed By: #### C MP #### [facility] [address] [place] [address] Dr. Love Eaton Calcium [Mass/Vol] 9.0 mg/dL Normal 8.5-10.1 [facility] Comment on above: Performed By: #### C MP #### [facility] [address] [place] [address] Dr. Love Eaton Chloride [Moles/Vol] 104 mmol/L Normal 98-107 [facility] Comment on above: Performed By: #### C MP #### [facility] [address] [place] [address] Dr. Love Eaton CO2 [Moles/Vol] 28.7 mmol/L Normal 21.0-32.0 [facility] Comment on above: Performed By: #### C MP #### [facility] [address] [place] [address] Dr. Love Eaton Creatinine [Mass/Vol] 0.87 mg/dL Normal 0.55-1.02 [facility] Comment on above: Performed By: #### C MP #### [facility] [address] [address] [address] Love Eaton EGFR-AF GAMBIAN >60 Normal >=60 [facility] Comment on above: Performed By: #### C MP #### [facility] [address] [address] [address] Love Eaton EGFR-NON AF GAMBIAN >60 Normal >=60 [facility] Comment on above: Performed By: #### C MP #### [facility] [address] [address] [address] Love Eaton Globulin (S) [Mass/Vol] 3.5 g/dL Normal [facility] Comment on above: Performed By: #### C MP #### [facility] [address] [place] [address] Dr. Love Eaton Glucose [Mass/Vol] 76 mg/dL Normal 74-106 [facility] Comment on above: Performed By: #### C MP #### [facility] [address] [address] [address] Love Eaton Potassium [Moles/Vol] 4.0 mmol/L Normal 3.5-5.1 [facility] Comment on above: Performed By: #### C MP #### [facility] [address] [address] [address] Love Eaton Protein [Mass/Vol] 7.2 g/dL Normal 6.4-8.2 [facility] Comment on above: Performed By: #### C MP #### [facility] [address] [address] [address] Love Eaton Sodium [Moles/Vol] 140 mmol/L Normal 136-145 [facility] Comment on above: Performed By: #### C MP #### [facility] [address] [address] [address] Love Eaton Urea nitrogen [Mass/Vol] 20.0 mg/dL Critically high 7.0-18.0 [facility] Comment on above: Performed By: #### C MP #### [facility] [address] [address] [address] Love Eaton Urea nitrogen/Creatinine [Mass ratio] 23.0 mg/mg Normal [facility] Comment on above: Performed By: #### C MP #### [facility] [address] [place] [address] Dr. Love Eaton PROTIMEon 12-06-2022 INR Coag (PPP) [Relative time] {INR} Normal [facility] Comment on above: Performed By: #### P T, PTT #### [facility] [address] [place] [address] Dr. Love Eaton INR GUIDELINES SEE BELOW Normal [facility] Comment on above: Result Comment: CORA RED INR: 2.0 - 3.0 CONDITIONS NOT LISTED BELOW 2.5 - 3.5 FOR PROSTHETIC HEART VALVE REPLACEMENT 2.5 - 3.5 RECURRENT THROMBOSIS Performed By: #### P T, PTT #### [facility] [address] [place] [address] Dr. Love Eaton PT Coag (PPP) [Time] 9.8 s Normal 9.0-11.6 [facility] Comment on above: Performed By: #### P T, PTT #### [facility] [address] [place] [address] Dr. Love Eaton PTTon 12-06-2022 aPTT Coag (Bld) [Time] 23.5 s Normal 22.3-36.2 [facility] Comment on above: Performed By: #### P T, PTT #### [facility] [address] [place] [address] Dr. Love Eaton Acetaminophen Levelon 2021 Acetaminophen Level <5 Low 10 - 30 ug/mL [facility] Comment on above: Therapeutic Range: 1 0.0-30.0 ug/mL Toxic: >=150 ug/mL BMP w/ Reflex to MGon 2021 Anion gap [Moles/Vol] 20 mmol/L High 3 - 16 [facility] Calcium [Mass/Vol] 9.4 mg/dL 8.3 - 10. 6 mg/dL [facility] [employer] Chloride [Moles/Vol] 103 mmol/L 99 - 11 0 mmol/L [facility] [employer] CO2 [Moles/Vol] 14 mmol/L Critically low 21 - 32 mmol/L [facility] Creatinine [Mass/Vol] 1.1 mg/dL 0.6 - 1.1 mg/dL [facility] GFR/1.73 sq M.predicted MDRD (S/P/Bld) [Vol rate/Area] 60 - PINF [facility] Comment on above: Pediatric calculator link https://www.kidney.org/professionals/kdoqi/gfr_calculatorped [...] 216 mg/dL High 70 - 99 mg/dL [facility] [email or web address] [employer] Potassium [Moles/Vol] 3.8 mmol/L 3.5 - 5.1 mmol/L [facility] Sodium [Moles/Vol] 137 mmol/L 136 - 145 mmol/L [facility] [employer] Urea nitrogen (BldV) [Mass/Vol] 17 mg/dL 7 - 20 mg/dL [facility] [employer] Basic Metabolic Panelon 12 Anion gap [Moles/Vol] 9 mmol/L 3 - 16 [facility] [employer] Calcium [Mass/Vol] 8.6 mg/dL 8.3 - 10. 6 mg/dL [facility] Chloride [Moles/Vol] 102 mmol/L 99 - 11 0 mmol/L [facility] [employer] CO2 [Moles/Vol] 26 mmol/L 21 - 32 mmol/L [facility] Creatinine [Mass/Vol] 1 mg/dL 0.6 - 1.1 mg/dL [facility] GFR/1.73 sq M.predicted MDRD (S/P/Bld) [Vol rate/Area] 60 - PINF [facility] Comment on above: Pediatric calculator link https://www.kidney.org/professionals/kdoqi/gfr_calculatorped [...] 141 mg/dL High 70 - 99 mg/dL [facility] Interpretation and review of laboratory results Abnormal [facility] Potassium [Moles/Vol] 3.6 mmol/L 3.5 - 5.1 mmol/L [facility] Sodium [Moles/Vol] 137 mmol/L 136 - 145 mmol/L [facility] Urea nitrogen (BldV) [Mass/Vol] 16 mg/dL 7 - 20 mg/dL [facility] Blood gas, venous (Lab)on Base Excess, Sukhwinder 1.0 mmol/L -2.0 - 3.0 mmol/L [facility] Carboxyhemoglobin 1.2 % 0.0 - 1.5 % [facility] Comment on above: 0.0-1.5 (Smokers 1.5-5.0) HCO3 (Bld) [Moles/Vol] 27.5 mmol/L 24.0 - 28.0 mmol/L [facility] Hemoglobin, Sukhwinder, Reduced 33 % [facility] Interpretation and review of laboratory results Abnormal [facility] MetHgb, Sukhwinder 0.4 % 0.0 - 1.5 % [facility] Oxygen saturation in Blood 67 % Not established [facility] pCO2, Sukhwinder 51.4 High [facility] pH, Sukhwinder 7.337 Low 7.350 - 7.450 [facility] pO2, Sukhwinder 37.6 [facility] TC02 (Calc), Sukhwinder 29 mmol/L [facility] Base Excess, Sukhwinder -4.9 mmol/L Low -2.0 - 3.0 mmol/L [facility] Carboxyhemoglobin 1.1 % 0.0 - 1.5 % [facility] Comment on above: 0.0-1.5 (Smokers 1.5-5.0) HCO3 (Bld) [Moles/Vol] 24.7 mmol/L 24.0 - 28.0 mmol/L [facility] Hemoglobin, Sukhwinder, Reduced 55 % [facility] Interpretation and review of laboratory results Abnormal [facility] MetHgb, Sukhwinder 0.1 % 0.0 - 1.5 % [facility] Oxygen saturation in Blood 44 % Not established [facility] pCO2, Sukhwinder 68.3 High [facility] pH, Sukhwinder 7.167 Critically low 7.350 - 7.450 [facility] pO2, Sukhwinder 33.5 [facility] TC02 (Calc), Sukhwinder 27 mmol/L [facility] CALL [place] SJJED tel. [phone], Chemistry results called to and read back by VIDA MATHEWS, 07/08/2022 18:16, by [facility] CBC with Auto Differentialon 07-08-2022 Basophils (Bld) [#/Vol] 0.0 10*3/uL 0.0 - 0.2 K/uL [facility] Basophils/100 WBC (Bld) 0.2 % [facility] Eosinophils (Bld) [#/Vol] 0.0 10*3/uL 0.0 - 0.6 K/uL [facility] Eosinophils/100 WBC (Bld) 0.1 % [facility] Hematocrit (Bld) [Volume fraction] 29.6 % Low 36.0 - 48.0 % [facility] Hemoglobin (Bld) [Mass/Vol] 10.1 g/dL Low 12.0 - 16.0 g/dL [facility] Interpretation and review of laboratory results Abnormal [facility] Lymphocytes (Bld) [#/Vol] 0.4 10*3/uL Low 1.0 - 5.1 K/uL [facility] Lymphocytes/100 WBC (Bld) 3.4 % [facility] MCH (RBC) [Entitic mass] 27.4 pg 26.0 - 34.0 pg [facility] MCHC (RBC) [Mass/Vol] 34.1 g/dL 31.0 - 36.0 g/dL [facility] MCV (RBC) [Entitic vol] 80.4 fL 80.0 - 100.0 fL [facility] Monocytes (Bld) [#/Vol] 0.6 10*3/uL 0.0 - 1.3 K/uL [facility] Monocytes/100 WBC (Bld) 5.4 % [facility] Neutrophils Absolute 10.2 K/uL High 1.7 - 7 .7 K/uL [facility] Neutrophils/100 WBC (Bld) 90.9 % [facility] Platelet distribution width (Bld) [Ratio] 16.8 % High 12.4 - 15.4 % [facility] Platelet mean volume (Bld) [Entitic vol] 7.4 fL 5.0 - 10.5 fL [facility] Platelets (Bld) [#/Vol] 297 10*3/uL 135 - 450 K/uL [facility] RBC (Bld) [#/Vol] 3.69 10*6/uL Low [facility] WBC (Bld) [#/Vol] 11.2 10*3/uL High 4.0 - 11.0 K/uL [facility] Basophils (Bld) [#/Vol] 0.0 10*3/uL 0.0 - 0.2 K/uL [facility] Basophils/100 WBC (Bld) 0.2 % [facility] Eosinophils (Bld) [#/Vol] 0.0 10*3/uL 0.0 - 0.6 K/uL [facility] Eosinophils/100 WBC (Bld) 0.1 % [facility] Hematocrit (Bld) [Volume fraction] 31.0 % Low 36.0 - 48.0 % [facility] Hemoglobin (Bld) [Mass/Vol] 10.2 g/dL Low 12.0 - 16.0 g/dL [facility] Interpretation and review of laboratory results Abnormal [facility] Lymphocytes (Bld) [#/Vol] 0.4 10*3/uL Low 1.0 - 5.1 K/uL [facility] Lymphocytes/100 WBC (Bld) 3.0 % [facility] MCH (RBC) [Entitic mass] 26.7 pg 26.0 - 34.0 pg [facility] MCHC (RBC) [Mass/Vol] 32.8 g/dL 31.0 - 36.0 g/dL [facility] MCV (RBC) [Entitic vol] 81.4 fL 80.0 - 100.0 fL [facility] Monocytes (Bld) [#/Vol] 0.6 10*3/uL 0.0 - 1.3 K/uL [facility] Monocytes/100 WBC (Bld) 4.1 % [facility] Neutrophils Absolute 13.7 K/uL High 1.7 - 7 .7 K/uL [facility] Neutrophils/100 WBC (Bld) 92.6 % [facility] Platelet distribution width (Bld) [Ratio] 16.7 % High 12.4 - 15.4 % [facility] Platelet mean volume (Bld) [Entitic vol] 7.6 fL 5.0 - 10.5 fL [facility] Platelets (Bld) [#/Vol] 317 10*3/uL 135 - 450 K/uL [facility] RBC (Bld) [#/Vol] 3.81 10*6/uL Low [facility] WBC (Bld) [#/Vol] 14.8 10*3/uL High 4.0 - 11.0 K/uL [facility] EKG 12 LeadOrdered By: Unkno wn Result on 07-08-2022 Atrial Rate 79 BPM [facility] Diagnosis EKG performed in ER and to be interpreted by ER physician.Confirmed by , ER ([id number]), medical transcription editor FILIBERTO QUAN ([id number]) on 07/08/2022 7:11:21 PM [facility] P Lamar 84 degrees [facility] P-R Interval 122 ms [facility] Q-T Interval 410 ms [facility] QRS Duration 86 ms [facility] QTc Calculation (Bazett) 470 ms [facility] R Lamar 79 degrees [facility] T Lamar 72 degrees [facility] Ventricular Rate 79 BPM [facility] Ethanolon 07-08-2022 Ethanol Lvl Not detected mg/dL [facility] Comment on above: None Detected Conversion factor: 100 mg/dl = .100 g/dl For Medical Purposes Only HCG Qualitative, Serumon hCG Qual Negative Detects HCG level >10 MIU/mL [facility] Hepatic Function Panelon Albumin [Mass/Vol] 4.2 g/dL 3.4 - 5.0 g/dL [facility] ALP (Bld) [Catalytic activity/Vol] 164 U/L High 40 - 129 U/L [facility] ALT [Catalytic activity/Vol] 139 U/L High 10 - 40 U/L [facility] AST [Catalytic activity/Vol] 292 U/L High 15 - 37 U/L [facility] Comment on above: Specimen hemolysis h as exceeded the interference as defined by Tim. Value may be falsely increased. Suggest recollection if clinically indicated. Bilirubin [Mass/Vol] 0.3 mg/dL 0.0 - 1 .0 mg/dL [facility] Bilirubin, Indirect see below 0.0 - 1. 0 mg/dL [facility] Comment on above: Indirect Bilirubin c annot be calculated since Total Bilirubin and/or Direct Bilirubin is below measurable range. Bilirubin.indirect [Mass/Vol] mg/dL 0.0 - 0.3 mg/dL [facility] Comment on above: Specimen hemolysis h as exceeded the interference as defined by Tim. Value may be falsely increased. Suggest recollection if clinically indicated. Protein [Mass/Vol] 7.2 g/dL 6.4 - 8.2 g/dL [facility] No Panel Informationon 07-08 Interpretation and review of laboratory results Abnormal [facility] CALL [place] SJJEChao tel. [phone], Chemistry results called to and read back by ONIEL CRAIG, 07/08/2022 18:44, by [facility] SPECIMEN REJECTIONon 022 Reason for Rejection see below [facility] Comment on above: Unable to perform te sting; specimen quantity not sufficient. To perform testing the specimen will need to be recollected. QNS Rejected Test CBCWD [facility] Salicylateon 07-08-2022 Salicylate, Serum <0.3 Low 15.0 - 30. 0 mg/dL [facility] Comment on above: Therapeutic Range: 1 5.0-30.0 mg/dL Toxic: >30.0 mg/dL Troponinon 07-08-2022 Troponin I.cardiac [Mass/Vol] ng/mL NINF - 0.01 ng/mL [facility] Comment on above: Methodology by Dang Gifford [facility] XR CHEST PORTABLEon 07-08-20 Clear lungs. Normal cardiomediastinal silhouette. SWOH RIS CONSOLIDATED Chest portable 1745 HISTORY: Short of breath SWOH RIS CONSOLIDATED Erasmo Membreno MD - 07/08/2022 Chest portable 1745 HISTORY: Short of breath IMPRESSION: Clear lungs. Normal cardiomediastinal silhouette. [facility] [employer] Work Phone: Radiology Study observation (narrative) [facility] Work Phone: XR CHEST PORTABLEOrdered By: Erasmo Membreno on 07-08-2022 [facility] Work Phone: Cardiac stress test EKG stud y Typeon 04-15-2022 Stress Echocardiography Report Demographics Patient Name CARLOS Best Date of Study 04/15/2022 Gender Female Patient Number [id number] Date of 1975 Visit Number [id number] Age 47 year(s) Accession Number [id number] Room Number OP Corporate ID [id number] [employer] Daphne Minor RDCS Ordering Physician Chasidy Joshi [facility] Belen Foy MD Physician Archie Xiao MD The procedure was explained in detail to the patient. Risks, complications and alternative treatments were reviewed. Written consent was obtained. Procedure Type of Study Stress procedure:ECHOCARDIOGR AM STRESS TEST. Procedure Date Date: 04/15/2022 Start: 02:39 PM Study Location: [facility] Echo Lab Technical Quality: Adequate visualization Patient [...] Peak HR: 162 bpm HR BP Product: [id number] Stress Peak BP: 160/60 mmHg Max Exercise: [...] No arrhythmias. Symptoms No symptoms with exercise. [facility] Archie Xiao MD - 04/15/2022 Stress Echocardiography Report Demographics Patient Name CARLOS Best Date of Study 04/15/2022 Gender Female Patient Number [id number] Date of 1975 Visit Number [id number] Age 47 year(s) Accession Number [id number] Room Number Corporate ID [id number] [employer] Daphne Minor [facility] Ordering Physician Madelyn, Chasidy Lc Foy MD Physician Archie Xiao MD The procedure was explained in detail to the patient. Risks, complications and alternative treatments were reviewed. Written consent was obtained. Procedure Type of Study Stress procedure:ECHOCARDIOGR AM STRESS TEST. Procedure Date Date: 04/15/2022 Start: 02:39 PM Study Location: [facility] Echo Lab Technical Quality: Adequate visualization Patient [...] Peak HR: 162 bpm HR BP Product: [id number] Stress Peak BP: 160/60 mmHg Max Exercise: [...] No arrhythmias. Symptoms No symptoms with exercise. [employer] Phone: Cardiac stress test EKG stud y TypeOrdered By: Archie Xiao on 04-15-2022 [employer] Phone: APTTon 02-10-2020 aPTT Coag (Bld) [Time] 30 s [facility] [employer] [place], [place] Comment on above: Therapeutic range: 4 9.0 - 76.0 sec Effective 06-12-19 9:00am EST Please note reference ranges have changed for PTT Testing. Basic Metabolic Panel w/ Ref asya to MGon 02-10-2020 Anion gap [Moles/Vol] 12 mmol/L [place], [place] Calcium [Mass/Vol] 8.9 mg/dL 8.3 - 10. 6 mg/dL [place] Chloride [Moles/Vol] 102 mmol/L 99 - 11 0 mmol/L [place] CO2 [Moles/Vol] 24 mmol/L 21 - 32 mmol/L [place] Creatinine [Mass/Vol] 0.8 mg/dL 0.6 - 1.1 mg/dL [place] GFR >60 >60 [facility] [employer] [place], [place] Comment on above: Chronic Kidney Disea se: less than 60 ml/min/1.73 sq.m. Kidney Failure: less than 15 ml/min/1.73 sq.m. Results valid for patients 18 years and older. GFR Non- >60 >60 [place], [place] Comment on above: >60 mL/min/1.73m2 EG FR, calc. for ages 18 and older using the MDRD formula (not corrected for weight), is valid for stable renal function. Glucose [Mass/Vol] 94 mg/dL 70 - 99 mg/dL [place], [place] Potassium [Moles/Vol] 4.2 mmol/L 3.5 - 5.1 mmol/L [place] Sodium [Moles/Vol] 138 mmol/L 136 - 145 mmol/L [place] Urea nitrogen [Mass/Vol] 11 mg/dL 7 - 20 mg/dL [place] CBC Auto Differentialon 01-22 Basophils (Bld) [#/Vol] 0.0 10*3/uL 0 - 0.2 K/uL [place] Basophils/100 WBC (Bld) 0.7 % [place] Eosinophils (Bld) [#/Vol] 0.2 10*3/uL 0 - 0.6 K/uL [place] Eosinophils/100 WBC (Bld) 2.3 % [place] Erythrocyte distribution width (RBC) [Ratio] 17.8 % High 12.4 - 15.4 % [place] Hematocrit (Bld) [Volume fraction] 33.6 % Low 36 - 48 % [place] Hemoglobin (Bld) [Mass/Vol] 11.1 g/dL Low 12 - 16 g/dL [place] Interpretation and review of laboratory results Abnormal [place] Lymphocytes (Bld) [#/Vol] 1.7 10*3/uL 1 - 5.1 K/uL [place] Lymphocytes/100 WBC (Bld) 25.1 % [place] MCH (RBC) [Entitic mass] 27.2 pg 26 - 34 pg [place] MCHC (RBC) [Mass/Vol] 33.0 g/dL 31 - 36 g/dL [place] MCV (RBC) [Entitic vol] 82.4 fL 80 - 100 fL [place] Monocytes (Bld) [#/Vol] 0.3 10*3/uL 0 - 1.3 K/uL [place] Monocytes/100 WBC (Bld) 4.7 % [place] Neutrophils Absolute 4.5 K/uL 1.7 - 7 .7 K/uL [place] Neutrophils/100 WBC (Bld) 67.2 % [place] Platelet mean volume (Bld) [Entitic vol] 6.8 fL 5 - 10.5 fL [place], [place] Platelets (Bld) [#/Vol] 372 10*3/uL 135 - 450 K/uL [place] RBC (Bld) [#/Vol] 4.07 10*6/uL [place] WBC (Bld) [#/Vol] 6.7 10*3/uL 4 - 11 K/uL [place] Performed at: [facility] [address] [place] [id number] [place] CT ABDOMEN PELVIS W IV CONTR AST Additional Contrast? Noneon 02-10-2020 [place], [facility] Incoming Radiology Results From [facility] - 02/10/2020 8:52 PM EDT EXAM: CT [...] process. IMPRESSION: 1. No acute intra-abdominopelvic abnormality. [facility] [place] EXAM: CT ABDOMEN AND PELVIS WITH CONTRAST [...] ABDOMINAL WALL: Normal. BONES: No destructive process. [place] 1. No acute intra-abdominopelvic abnormality. [place] Hepatic Function Panelon Albumin [Mass/Vol] 4.3 g/dL 3.4 - 5 g/dL [place] ALP [Catalytic activity/Vol] 58 U/L 40 - 129 U/L [place] ALT [Catalytic activity/Vol] 8 U/L Low 10 - 40 U/L [place] AST [Catalytic activity/Vol] 29 U/L 15 - 37 U/L [place] Comment on above: Specimen hemolysis h as exceeded the interference as defined by Tim. Value may be falsely increased. Suggest recollection if clinically indicated. Bilirubin Ql (U) <0.2 0 - 1 mg/dL [place], [place] Bilirubin, Indirect see below 0 - 1 mg/dL [place] Comment on above: Indirect Bilirubin c annot be calculated since Total Bilirubin and/or Direct Bilirubin is below measurable range. Bilirubin.direct [Mass/Vol] mg/dL 0 - 0.3 mg/dL [place] Comment on above: Specimen hemolysis h as exceeded the interference as defined by Tim. Value may be falsely increased. Suggest recollection if clinically indicated. Interpretation and review of laboratory results Abnormal [place] Protein [Mass/Vol] 7.5 g/dL 6.4 - 8.2 g/dL [place] Lipaseon 02-10-2020 Lipase [Catalytic activity/Vol] 30.0 U/L 13 - 60 U/L [place] Otheron 02-10-2020 Performed at: [facility] [address] [place] [id number] [place] Performed at: [facility] [address] [place] [id number] [place] , urineon 0 Beta HCG ( test) Ql (U) Negative Detects HCG level >20 MIU/mL [place] Comment on above: Note: Always repeat results in question with a serum quantitative test. A serum hCG is positive 2-5 days before the urine hCG test. Performed at: [facility] [address] [place] [id number] [place] Protime-INRon 02-10-2020 INR Coag (PPP) [Relative time] 0.84 {INR} Low [place] Comment on above: Effective 06/12/19 a t 09:00am EST Normal: 0.86 - 1.14 Therapeutic: 2.0 - 3.0 Pros. Valve: 2.5 - 3.5 AMI: 2.0 - 3.0 Interpretation and review of laboratory results Abnormal [place] PT Coag (PPP) [Time] 9.7 s Low [place] Comment on above: Effective 06-12-19 0 9:00am EST Please note reference ranges have changed for PT and INR Testing. TYPE AND SCREENon 02-10-2020 ABO/Rh Negative [place] Performed at: [facility] [address] [place] [id number] [place] Urinalysis Reflex to Culture on 02-10-2020 Bilirubin Urine Negative Negative [facility] [place] Blood, Urine Negative Negative [place], [place] Clarity, UA Clear Clear [place] Color, UA Yellow Straw/Yellow [place], [place] Glucose, Ur Negative Negative mg/dL [place] Ketones Ql (U) Negative Negative mg/dL [place] Leukocyte esterase Test strip Ql (U) Negative Negative [place] Microscopic Examination Not Indicated [place] Nitrite, Urine Negative Negative [place], [place] pH, UA 6.0 [place] Protein (U) [Mass/Vol] Negative Negative mg/dL [place] Specific [place], UA 1.010 [place], [place] Urine Reflex to Culture Not Indicated [place] Urine Type Other [place] Urobilinogen, Urine 0.2 <2.0 E.U./dL [place] Performed at: [facility] [address] [place] [address] [place] Vital Signs Date Time Vital Sign Value Performing Clinician Thelma jacob 07-10-2024 14:05-0500 Diastolic blood pressure 78 mm[Hg] Aidan Woo CHARGE ATTENDANT-C [facility] 07-10-2024 14:05-0500 Heart rate 65 /min Aidan Woo CHARGE ATTENDANT-C [facility] 07-10-2024 14:05-0500 SaO2% (BldA) [Mass fraction] 100 % Aidan Woo CHARGE ATTENDANT-C [facility] 07-10-2024 14:05-0500 Systolic blood pressure 120 mm[Hg] Aidan Caludioinski CHARGE ATTENDANT-C [facility] 02-07-2023 13:50-0400 Body temperature 97.7 [degF] Jamshid Andrade [facility] 02-07-2023 13:50-0400 Diastolic blood pressure 73 mm[Hg] Jamshid Andrade [facility] 02-07-2023 13:50-0400 Heart rate 79 /min Jamshid Andrade [facility] 02-07-2023 13:50-0400 Respiratory rate 18 /min Jamshid Andrade [facility] 02-07-2023 13:50-0400 SaO2% (BldA) [Mass fraction] 100 % Jamshid Andrade [facility] 02-07-2023 13:50-0400 Systolic blood pressure 116 mm[Hg] Jamshid Andrade [facility] 07-08-2022 21:03-0500 Diastolic blood pressure 65 mm[Hg] Jose C Goetz MD Work Phone: [facility] 07-08-2022 21:03-0500 Heart rate 76 /min Jose C Goetz MD Work Phone: [facility] 07-08-2022 21:03-0500 Respiratory rate 14 /min Jose C Goetz MD Work Phone: [facility] 07-08-2022 21:03-0500 SaO2% (BldA) [Mass fraction] 97 % Jose C Goetz MD Work Phone: [facility] 07-08-2022 21:03-0500 Systolic blood pressure 99 mm[Hg] Jose C Goetz MD Work Phone: [facility] 07-08-2022 17:12-0500 Body temperature 95.9 [degF] Jose C Goetz MD Work Phone: [facility] 02-10-2020 16:03-0400 BMI (Body Mass Index) 23.24 kg/m2 Ángel Rodrigo [facility] 02-10-2020 16:03-0400 Body Temperature 98.2 [degF] [facility], [place] 02-10-2020 16:03-0400 Body weight 65.[address] [facility] [place] 02-10-2020 16:03-0400 BP Diastolic 90 mm[Hg] [facility] [place] 02-10-2020 16:03-0400 BP Systolic 130 mm[Hg] [facility] [place] 02-10-2020 16:03-0400 Height 167[address] [facility] [place] 02-10-2020 16:03-0400 Pulse (Heart Rate) 90 /min [facility] 02-10-2020 16:03-0400 Pulse Oximetry 100 % [facility] [place] 02-10-2020 16:03-0400 Respiratory Rate 16 /min Ángel Wallace [facility] Encounters Encounter Date Encounter Type Care Provider Facility Start: 08-16-2024 ambulatory Aidan Woo Facili ty:[facility] Start: 07-10-2024 End: 07-10-2024 ambulatory Aidan Woo Facility:[facility] Start: 07-10-2024 End: 07-10-2024 Patient encounter procedure Aidan Woo CHARGE ATTENDANT-C [facility] Start: 02-29-2024 End: 02-29-2024 ambulatory [facility] Start: 02-29-2024 End: 02-29-2024 Encounter for preprocedural laboratory examination [facility] Start: 02-20-2024 End: 02-20-2024 ambulatory [facility] Start: 02-09-2024 Emergency department patient visit [facility] Start: 02-09-2024 End: 02-10-2024 Emergency department patient visit ELISA [facility] Start: 06-06-2023 End: 06-06-2023 ambulatory CARMEN GARCIA [facility] Start: 05-02-2023 Evaluation and management of inpatient JODI [facility] Start: 05-02-2023 Evaluation and management of inpatient JODI [facility] Start: 04-30-2023 Emergency department patient visit DODIE AG [facility] Start: 04-30-2023 End: 05-03-2023 Evaluation and management of inpatient PAWEL IRINEO [facility] Start: 03-23-2023 End: 03-23-2023 Emergency department patient visit ELISA [facility] Start: 02-07-2023 End: 02-07-2023 Emergency department patient visit Jamshid Andrade [facility] Start: 12-06-2022 End: 12-06-2022 ambulatory KELLEN DODSON . Facility: Start: 07-08-2022 End: 07-08-2022 Emergency department patient visit Jose C Goetz MD Work Phone: [facility] Comment on above: Opiate overdose, acc idental or unintentional, initial encounter (HCC) (Primary Dx) Start: 04-15-2022 End: 04-15-2022 Subsequent hospital visit by physician Maxwell Stress Echo Rm Schedule [facility] Comment on above: Opioid use disorder Start: 02-10-2020 End: 02-10-2020 Emergency department patient visit Ángel Wallace Work Phone: [facility] Comment on above: Rectal bleeding (Clarita sedrick Dx) Start: 09-14-2017 Ambulatory SELF SELF [facility] Procedures Date Procedure Procedure Detail Performing Clinician Start: 07-25-2022 Colonoscopy Aidan Woo CHARGE ATTENDANT-C Start: 07-25-2022 Endoscopy Aidan Woo CHARGE ATTENDANT-Drea Start: 07-08-2022 End: 07-08-2022 Basic metabolic panel calcium total Jose C Goetz MD Work Phone: Start: 07-08-2022 Blood gases any combination ph pco2 po2 co2 hco3 Jose C Goetz MD Work Phone: Start: 07-08-2022 SPECIMEN REJECTION Jose C Goetz MD Work Phone: Start: 07-08-2022 Assay of acetaminophen Jose C Goetz MD Work Phone: Start: 07-08-2022 Assay of ethanol Jose C Goetz MD Work Phone: Start: 07-08-2022 Assay of salicylate Jose C Goetz MD Work Phone: Start: 07-08-2022 End: 07-08-2022 Assay of troponin quantitative Jose C Goetz MD Work Phone: Start: 07-08-2022 BASIC METABOLIC PANEL W/ REFLEX TO MG FOR LOW K Jose C Goetz MD Work Phone: Start: 07-08-2022 Blood gases any combination ph pco2 po2 co2 hco3 Jose C Goetz MD Work Phone: Start: 07-08-2022 Hepatic function panel Jose C Goetz MD Work Phone: Start: 07-08-2022 Radiologic exam chest single view Jose C Goetz MD Work Phone: Start: 07-08-2022 Ecg routine ecg w/least 12 lds w/i&r Jose C Goetz MD Work Phone: Start: 04-15-2022 Stress echocardiography Rufina Oropezachloe Work Phone: Start: 03-25-2021 Claudia-en-Y - action (qualifier value) Aidan Woo CHARGE ATTENDANT-C Start: 02-10-2020 Antibody screen Ángel Wallace Start: 02-10-2020 Ct abdomen & pelvis w/contrast material Jud Graff Work Phone: Start: 02-10-2020 Assay of lipase Jud Graff Work Phone: Start: 02-10-2020 BASIC METABOLIC PANEL W/ REFLEX TO MG FOR LOW K Jud Graff Work Phone: Start: 02-10-2020 Blood count complete auto&auto difrntl wbc Jud Graff Work Phone: Start: 02-10-2020 Blood typing serologic abo Jud Galindo corina Work Phone: Start: 02-10-2020 Hepatic function panel Jud Graff Work Phone: Start: 02-10-2020 Prothrombin time Jud Graff Work Phone: Start: 02-10-2020 Thromboplastin time partial plasma/whole blood Jud Graff Work Phone: Start: 02-10-2020 Urine test visual color cmprsn meths Ángel Wallace Work Phone: Start: 02-10-2020 Urnls dip stick/tablet rgnt auto w/o microscopy Ángel Laure Rodrigo Work Phone: Start: 10-07-2014 Microscopic observation [Identifier] in Cervix by Cyto stain Tjhz Schedule Start: 07-25-2013 Abdomen Aidan LUDWIG-C Start: 07-25-1998 section Aidan LUDWIG-C H/O: surgery History of gastr ic surgery Aidan LUDWIG-C History of cholecystectomy Hx of cholecys tectomy Aidan Woo CHARGE ATTENDANT-C Plan of Treatment Date Care Activity Detail Author Start: 12-31-2024 DTaP/Tdap/Td vaccine (2 - Td or Tdap) DTaP/Tdap/Td vaccine (2 - Td or Tdap) [facility] Start: 12-31-2024 DTaP/Tdap/Td vaccine (2 - Td) DTaP/Tdap/Td vaccine (2 - Td) [place] Start: 03-25-2022 Influenza vaccination Flu vaccine (# 1) [facility] Start: 02-22-2022 Influenza vaccination Flu vaccine (# 1) [facility] Start: 2022 Screening for malign ant neoplasm of colon [facility] Start: 03-25-2020 Influenza vaccination Flu vaccine (# 1) [place] Start: 10-07-2017 Screening for malign ant neoplasm of cervix [facility] Start: 2017 Lipid panel [facility] Start: 2007 Screening for malign ant neoplasm of cervix HPV (without or with Pap) [facility] Start: 01-27-1992 HIV screening HIV screen [facility] Start: 1989 Depression Screen Depression Screen [facility] Start: 1977 COVID-19 Vaccine (#1) COVID-19 Vacci ne (#1) [facility] End: 02-10-2020 POCT BLOOD OCCULT POCT BLOOD OCCULT Point of Care Testing STAT One Time for 1 Occurrences starting 02/10/2020 until 02/10/2020 [facility] [place] Comment on above: One Time for 1 Occur rences starting 02/10/2020 until 02/10/2020 End: 07-08-2022 Urinalysis with Reflex to Culture Urinalysis with Reflex to Culture Lab STAT One Time for 1 Occurrences starting 07/08/2022 until 07/08/2022 [employer] Work Phone: Comment on above: One Time for 1 Occur rences starting 07/08/2022 until 07/08/2022 End: 07-08-2022 Urine Drug Screen Urine Drug Screen Lab STAT One Time for 1 Occurrences starting 07/08/2022 until 07/08/2022 [employer] Phone: Comment on above: One Time for 1 Occur rences starting 07/08/2022 until 07/08/2022 End: 07-08-2022 Urine Preg (Lab) Urine Preg (Lab) Lab STAT One Time for 1 Occurrences starting 07/08/2022 until 07/08/2022 [employer] Phone: Comment on above: One Time for 1 Occur rences starting 07/08/2022 until 07/08/2022 Immunizations Immunization Date Immunization Notes Care Provider [facility] 07-03-2021 SARS-CoV-2 (COVID-19 ) mRNA-1273 vaccine Aidan Amna CHARGE ATTENDANT-C [facility] 12-05-2020 SARS-CoV-2 (COVID-19 ) mRNA-1273 vaccine Aidan Amna CHARGE ATTENDANT-C [facility] Comment on above: Result Comment: 2023: TPV40 11-07-2020 SARS-CoV-2 (COVID-19 ) mRNA-1273 vaccine Aidan Amna CHARGE ATTENDANT-C [facility] Comment on above: Result Comment: 2023: TPV40 06-25-2020 influenza virus vaccine, unspecified formulation Aidan Woo CHARGE ATTENDANT-C [facility] 07-03-2018 influenza virus vaccine, unspecified formulation Aidan Woo CHARGE ATTENDANT-C [facility] 07-05-2015 influenza virus vaccine, unspecified formulation Aidan Woo CHARGE ATTENDANT-C [facility] Payers Date Payer Category Payer Private Health Insurance [id number] 2023 Medicaid [id number] 2021 Private Health Insurance [id number] 2015 Unknown [id number] 1977 Unknown [id number] 1977 Unknown [id number] 1977 Unknown [id number] 1959 Unknown [id number] Social History Date Type Detail Facility Start: 02-10-2020 Tobacco smoking stat [facility] Former smoker JAY RAJNI [facility] End: 03-18-2014 History of tobacco use Current [place] Start: 02-10-2020 Cigarettes smoked current (pack per day) - Reported [place] Start: 02-10-2020 Tobacco use and exposure Never used [place] Start: 02-10-2020 End: 04-23-2020 Alcohol intake Current non-drinker of alcohol (finding) [place] Start: 10-07-2014 Tobacco Comment cessation 10/06 [place] Start: 1975 Sex Assigned At Not on file [place] Start: 06-28-2022 End: 07-08-2022 Exposure to SARS-CoV-2 (event) [facility] sure [facility] [place] [place] End: 03-18-2014 History of tobacco use Cigarette Smoker AJY URBAN [employer] Work Phone: Tobacco [facility] Comment on above: denies Tobacco smoking status No Smokin g Status Entered [facility] Sex Assigned At Female [facility] Start: 07-10-2024 Tobacco smoking status Never s moked tobacco (finding) [facility] Comment on above: denies Functional Status Date Assessment Result Facility 07-10-2024 Functional Status N/A [facility] 02-07-2023 Functional Status N/A [facility] Clinical Notes 07-08-2022 to 07-03-2024 Discharge InstructionsAttachmentsLaboratory Note Date & Type Note Facility 07-03-2024 Hospital Discharge instructions Follow Up Care 07/03/2024 11:03:51 With:Amna MARTINI, [place] Lake [facility] Address: [address] [place] [phone] When:Within 6 Week(s) Comments:4-6 weeks [facility] 02-29-2024 Note Patient: Conrad Gonzalez Procedure Summary Date: 02/29/24 Room / Location: [facility] Invasive Surgery [place] Anesthesia Start: 1210 Anesthesia Stop: 1243 Procedure: EGD Diagnosis: Perforated duodenal ulcer ([facility]) Peptic ulcer Scheduled Providers: Maritza Eric MD; [...] per anesthesia protocol. No notable events documented. [facility] 02-29-2024 Note Patient: Conrad Gonzalez Procedure Summary Date: 02/29/24 Room / Location: [facility] Anesthesia Start: 1210 Anesthesia Stop: Procedure: EGD Diagnosis: Perforated duodenal ulcer (CMS/HCC) Peptic ulcer Scheduled Providers: Maritza Eric MD; MARIAN Peters; Henri Funk MD Responsible Provider: Maritza Eric MD Anesthesia Type: MAC ASA Status: 3 Anesthesia Post Transport Note Transport to: [place] PACU O2 Route: room air Patient Monitor: direct observation Transport: uneventful Patient condition is: stable [facility] 02-29-2024 Note Patient: Conrad Gonzalez Procedure Information Date/Time: 02/29/24 1215 Scheduled providers: Maritza Eric MD; MARIAN Peters; Henri Funk MD Procedure: EGD Location: [facility] Past Medical History: Diagnosis Date Anemia Anxiety Asthma Drug abuse, cocaine type ([facility]/HCC) Drug abuse, opioid type ([facility]/HCC) Gastric ulcer Gastroparesis Lupus ([facility]/HCC) Panic attack Peptic ulcer disease Thrombus Relevant Problems GI (+) Peptic ulcer disease (+) Perforated peptic ulcer ([facility]/HCC) Pulmonary (+) Asthma Clinical information reviewed: Tobacco [...] risks discussed with patient. Plan discussed with MARIAN. Additional Equipment Requests [facility] 02-20-2024 Note Attestation signed by Henri Funk MD at 02/20/2024 1:45 PM GC: I saw this patient. I personally performed the critical/navarro portions that determines the level of service. I was directly involved in the management and treatment plan of the patient. I reviewed fellow Keeley Byers 's note and agree with the documentation [facility] Gastroenterology Follow-Up Patient Visit CHIEF COMPLAINT Chief Complaint Patient presents with Hospital Follow-up Gastroparesis Dysmotility HISTORY OF PRESENT ILLNESS: A 49-year-old female with a medical history of lupus and multiple abdominal surgeries presented with complaints of abdominal pain. She recently visited the ER at [facility] due to ongoing symptoms of vomiting, [...] with contrast filled in portal vein. EGD 2017 with mild ulceration and narrowing at the [...] mg tablet, , Disp: , Rfl: HYDROcodone-acetaminophen ([place]) 5-325 mg tablet, , Disp: , Rfl: hydroxychloroquine ([place]) 200 mg tablet, Take 200 mg (more content not included)... [facility] 06-06-2023 Note Patient: Conrad Gonzalez Procedure Information Anesthesia Start Date/Time: 06/06/231047 Scheduled providers: Di Amaya MD; Sergey Wood MD; Mike Mosley CRNA Procedure: EGD Location: [facility] Main OR Relevant Problems Anesthesia (-) History [...] risks discussed with patient. Plan discussed with [employer] TRAINER. Additional Equipment Requests [facility] 06-06-2023 Note Patient: Conrad Gonzalez Procedure Summary Date: 06/06/23 Room / Location: [facility] Main OR Anesthesia Start: 1047 Anesthesia Stop: 1111 Procedure: EGD Diagnosis: Gastric ulcer without hemorrhage [...] per anesthesia protocol. No notable events documented. [facility] 06-06-2023 Note Patient: Conrad Gonzalez Procedure Summary Date: 06/06/23 Room / Location: [facility] Main OR Anesthesia Start: 1048 Anesthesia Stop: Procedure: EGD Diagnosis: Gastric ulcer without hemorrhage or perforation, unspecified chronicity Scheduled Providers: Di Amaya MD; Sergey Wood MD; Mike Mosley CRNA Responsible Provider: Sergey Wood MD Anesthesia Type: MAC ASA Status: Not recorded Anesthesia Post Transport Note Transport to: [facility] O2 Route: face mask Oxygen Flow (L/min): 8 Patient Monitor: direct observation Transport: uneventful Patient condition is: stable [facility] 05-05-2023 Note Patient: Conrad Gonzalez Procedure Summary Date: 05/02/23 Room / Location: [facility] Main OR Anesthesia Start: 1243 [...] per anesthesia protocol. No notable events documented. [facility] 05-03-2023 Note Hospital Medicine Discharge Summary [...] have repeat EGD in [address] KUMAR, REFERRED, Conrad is advised to follow up with you [...] Your Medications These medications were sent to [facility] [id number] [address] [place] [address] cefuroxime 250 mg tablet pantoprazole 40 mg [...] 04/30/23 0141 AST (more content not included)... [facility] 05-03-2023 Note Gastroenterology/Hep atology Progress Note IDENTIFYING DATA PATIENT: Conard Gonzalez ADMIT DATE: 04/30/2023 TIME OF EVALUATION: [...] 6.2 B12/Folate/Iron studies: No results found for: [id number], FOLATE, IRON, TIBC, UIBC, IRONSAT, FERRITIN Viral Hepatitis No results found for: HEPAIGM, HAV, HEPBSAG, HEPBSAB, HEPBEAB, HEPBIGM, HEPBCAB, HEPBCOREAB, HBVNAT, HCVSCR, HEPCAB, HCVNAT, HCVPCR, HCVTMA Liver workup No results found for: BLAS, SMOOTHMUSCAB, CERULOPLSM, Z1HLKRQGDRU, TTGA, IGA, TSH, FREET4, AFP Pancreatitis Lab [...] Amaya MD Proc (more content not included)... 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 Clinical Trials Systems Administrator met with patient at the bedside to discuss discharge plans. Patient anticipates returning home when medically ready. No further OTM needs at this time. [facility] 05-02-2023 Note Patient: Conrad Gonzalez Procedure Summary Date: 05/02/23 Room / Location: [facility] In[facility] [place] [facility] [place] Anesthesia Start: 1243 Anesthesia Stop: [...] observation Transport: uneventful Patient condition is: stable [facility] 05-02-2023 Note Hospital Medicine Daily Progress Note - 05/02/2023 9:00 AM; Room: [address] [place] [address] Admission: 04/30/2023 12:28 AM; Length of stay: 2 days THE HOSPITALIST TEAM PREFERS TO USE [employer] CHAT FOR COMMUNICATION 7AM-7PM. IF I DO NOT RESPOND WITHIN 15 MINUTES, PLEASE PAGE ME/CALL THROUGH THE MOTOR BUILDER WINDER. FROM 7PM-7AM, PLEASE PAGE [phone](COVR) Code Status: Full Code Discharge Destination: home [...] for: PREALBUMIN, TSH, T3FREE, FREET4, CORTISOL, FEV1, YUE5NEI, DLCO, RVSP, HDL, LDL No results found for: [id number], IRON, TIBC, C3, C4, BLAS, CANCA, ASO, PSA, CEA, CA125, CA199, AFP, CA153 Imaging CT abdomen pelvis w IV contrast Narrative: CT ABDOMEN PEL (more content not included)... [facility] 05-02-2023 Note [facility] Vascular Surgery DAILY PROGRESS NOTE Subjective Patient [...] a 48 y.o. female who presented to [facility] ED on 04/30/2023 for abd pain/nausea/bloody [...] Davey Savage MD, (more content not included)... [facility] 05-01-2023 Note Patient: Conrad Gonzalez Procedure Information Date/Time: 05/02/23 1230 Scheduled providers: Di Amaya MD Procedures: EGD DIAGNOSTIC COLONOSCOPY Location: [facility] Invasive [facility] [place] [facility] OR Relevant Problems Anesthesia (within normal [...] risks discussed with patient. Additional Equipment Requests [facility] 05-01-2023 Note Hospital Medicine Daily Progress Note - 05/01/2023 9:43 AM; Room: [address] [place] [address] Admission: 04/30/2023 12:28 AM; Length of stay: 1 days THE HOSPITALIST TEAM PREFERS TO USE [employer] CHAT FOR COMMUNICATION 7AM-7PM. IF I DO NOT RESPOND WITHIN 15 MINUTES, PLEASE PAGE ME/CALL THROUGH THE MOTOR BUILDER WINDER. FROM 7PM-7AM, PLEASE PAGE [phone](COVR) Code Status: Full Code Discharge Destination: home [...] 100 mL/hr, Last Rate: 100 mL/hr (05/01/23 06) Pertinent Investigations Hematology: Results from last 7 [...] from last 7 days Lab Units 05/01/23 0604/30/23 0141 SODIUM mmol/L 135* 137 POTASSIUM mmol/L [...] for: PREALBUMIN, TSH, T3FREE, FREET4, CORTISOL, FEV1, YWN2PYX, DLCO, RVSP, HDL, LDL No results found for: [id number], IRON, TIBC, C3, C4, BLAS, CANCA, ASO, PSA, CEA, CA125, CA199, AFP, CA153 Imaging CT abdomen pelvis w IV contrast Narrative: CT ABDOMEN PELVIS W IV CONTRAST 04/30/2023 3:03 AM Clinical indication: Left lower quadrant abdominal (more content not included)... [facility] 05-01-2023 Note [facility] Vascular Surgery DAILY PROGRESS NOTE Subjective No [...] days Lab Units 05/01/23 0607 04/30/23 2212 04/30/2370504/30/23 0141 WBC AUTO 10*3/uL 3.86* -- -- [...] Results from last 7 days Lab Units 04/30/23705 INR 1.12* Medications cefTRIAXone, 1 g, intravenous, q24h hydroxychloroquine, 100 mg, oral, q PM hydroxychloroquine, 200 mg, oral, Daily hydrOXYzine HCL, 50 mg, oral, BID pantoprazole, 40 mg, intravenous, q24h ELLIS pilocarpine, 5 mg, oral, BID polyethylene glycol, 17 g, oral, Daily heparin, 0-28 Units/kg/hr, Last Rate: 18 Units/kg/hr (05/01/23 0538) sodium chloride, 100 mL/hr, Last Rate: 100 mL/hr (05/01/23608) Imaging CT abdomen pelvis w IV contrast [...] a 48 y.o. female who presented to [facility] ED on 04/30/2023 for abd pain/nausea/bloody [...] Surgery Service General Surgery Resident, PGY-4 05/01/23 [facility] 05-01-2023 Note Attestation signed by Jozef Scruggs MD at 05/01/2023 2:09 PM I personally saw and examined the patient on the same date of service as resident/fellow TAMMY. I discussed the findings and therapeutic plan with the resident/fellow TAMMY. I agree with the documentation, except for any edits/updates below. Teaching Physician's Revisions: None [facility] General Surgery DAILY PROGRESS NOTE Subjective Patient [...] 0-28 Units/kg/hr, Last Rate: 18 Units/kg/hr (05/01/23 05) sodium chloride, 100 mL/hr, Last Rate: 100 mL/hr (05/01/23608) Imaging: CT abdomen pelvis w IV contrast [...] 48 y.o. female who is presented to [facility] ED on 04/30/2023 for abdominal pain/nausea/bloody diarrhea. Patient with extensive past surgical hx including perforated gastric ulcer with jaleel patch repair x2, Billroth 2 procedure with cholecystectomy and gastrojejunostomy with open revi (more content not included)... [facility] 04-30-2023 Note Hospital Medicine History and Physical 04/30/2023 7:41 AM THE HOSPITALIST TEAM PREFERS TO USE [employer] CHAT FOR COMMUNICATION 7AM-7PM. IF I DO NOT RESPOND WITHIN 15 MINUTES, PLEASE PAGE ME/CALL THROUGH THE MOTOR BUILDER WINDER. FROM 7PM-7AM, PLEASE PAGE [phone](COVR) Chief Complaint Chief Complaint Patient presents with [...] this hospital stay by a member of [facility] Medicine. Past Medical History Past Medical History: [...] file Physical Activi (more content not included)... [facility] 04-30-2023 Note [facility] Vascular Surgery CONSULTATION Reason For Consult: Chronic [...] - 7.60 10*3/uL (more content not included)... [facility] 02-07-2023 Hospital Discharge instructions Patient Education [...] damage to the area. General instructions Take opbu-qdd-hedufzu and prescription medicines only as told by [...] provider. Document Revised: 02/17/2022 Document Reviewed: 02/17/2022 [employer] Patient Education 2022 [employer] 02/07/2023 16:28:03 Post-Concussion Syndrome Post-Concussion Syndrome [...] ?Speech therapy. ?Vision therapy. A brain and marine cargo specialist can recommend treatments for vision problems. Follow these instructions at home: Medicines Take ecdn-yhw-zdctody and prescription medicines only as told by [...] provider. Document Revised: 09/24/2021 Document Reviewed: 09/24/2021 [employer] Patient Education 2022 [employer] 02/07/2023 16:28:03 Contusion Contusion A contusion is [...] sitting or lying down. General instructions Take qhlh-prv-axuejyo and prescription medicines only as told by [...] compression, and elevation. You may be given vczt-ays-xjmybgb medicines for pain. Contact a health care [...] provider. Document Revised: 05/25/2022 Document Reviewed: 05/06/2022 [employer] Patient Education 2022 [employer]. Follow Up Care 02/07/2023 13:47:50 With:Himanshu DASILVA Address: [address], [facility] [place] [address]- Business (1) When:02/10/2023 16:27:50 Comments:Call the office of [...] you develop any new or worsening symptoms. [facility] 07-08-2022 Hospital Discharge instructions Jose C Goetz [...] cannot be sent through Care Everywhere.naloxone (nasal) (Guamanian)documented in this encounter [employer] Phone: Evaluation + Plan note Future Appointments Appointment Date:02/09/2023 01:00:00 PM Scheduled Provider:Grecia Milner Location:[facility] Appointment Type: Open [facility] Evaluation + Plan note Future Appointments Appointment Date:08/16/2024 02:00:00 PM Scheduled Provider:Aidan Walton Location:[facility] Appointment Type: Open Future Scheduled TestsRheumatoid Factor Quantitative 07/20/24ANA w/Reflex if POS 07/20/24TSH With T4fr Reflex 07/20/24Basic Metabolic Panel 07/20/24CBC w/ Auto Diff 07/20/24C-Reactive Protein 07/20/24Lipid Panel 07/20/24 [facility] Evaluation note Diagnosis Opioid use disorder documented in this encounter [employer] Phone: evaluation note* Diagnosis Opiate overdose, accidental or unintentional, initial encounter (HCC)- Primary documented in this encounter [employer] Phone: Hospital course Narrative No data available for this section [facility] No data available for this section [facility] (n[facility]ative) Referred by: Aidan Walton [facility] Summary Purpose Family History No Family History Records FoundNo Family History Records FoundNo Family History Records Found No data available for this section No Family History Records Found Advance Directives No Advanced Directives Records FoundDocuments on File Type Date Recorded Patient Customer Resource Specialist Expl anation Advance Directives and Livin g Will Advance Directives and Livin g Will 04/04/2014 6:08 PM Advance Directives and Livin g Will 04/07/2014 5:13 PM Power of Car Mechanic Latest Code Status on File Code Status Date Activated Date Inactivated Comments Full Code 04/18/2014 4:17 PM 04/19/2014 8:44 PM Full Code 04/06/2014 2:32 PM 04/15/2014 7:29 PM Full Code 04/06/2014 7:20 AM 04/06/2014 2:32 PM Documents on File Type Date Recorded Patient Customer Resource Specialist Expl anation ACP-Advance Directive 04/07/2014 5:13 PM ACP-Advance Directive 04/04/2014 6:08 PM Documents on File Type Date Recorded Patient Customer Resource Specialist Expl anation ACP-Advance Directive 04/07/2014 5:13 PM [...] Gastroenterology Diagnoses Rectal bleeding Ángel Wallace MD [address] [place] [address] Specialty Diagnoses / Procedures Referred By Contac t Referred To Contact Cardiology Diagnoses Opioid use disorder Procedures Echocardiogram stress test Rufina Case [address] [place] [address] [address] [place] [address] Referral ID Status Reason Start Date Expiration Date V isits Requested Visits Authorized [id number] Pending Review 04/15/2022 04/14/2023 1 1 Discharge [...] to be part of your care at [facility]. Best wishes, Ángel Wallace MD, [facility] Emergency Department Physician [facility] Your Lab Results: Results for orders placed [...] Negative Ketones, Urine Negative Negative mg/dL Specific [place], UA 1.010 1.005 - 1.030 Blood, Urine [...] through Care Everywhere. * GI Bleeding: Lower (Guamanian) documented in this encounter Assessments Diagnosis Rectal bleeding Hemorrhage of rectum and anus Additional Source Comments INFORMATION SOURCE (unrecogn ized section and content) DATE CREATED AUTHOR 01/13/2018 [facility] DATE CREATED AUTHOR AUTHOR'S ORGANIZ ATION 12/07/2022 [facility] DATE CREATED AUTHOR AUTHOR'S ORGANIZ ATION 03/11/2024 [facility] DATE CREATED AUTHOR AUTHOR'S ORGANIZ ATION 07/13/2024 [facility] Reason for Visit (unrecogniz ed section and content) Reason Comments Rectal Bleeding Specialty Diagnoses / Procedures Referred By Contac ze Referred To Contact Cardiology Diagnoses Opioid use disorder Procedures Echocardiogram stress test Rufina Case [address] [place] [address] Referral ID Status Reason Start Date Expiration Date V isits Requested Visits Authorized [id number] Pending Review 04/15/2022 04/14/2023 1 1 Reason Comments Drug Overdose 1645 2 mg [id number] 2 mg Narcan Care Teams (unrecognized sec tion and content) Master Tax Advisor Relationship Specialty Start Date End Date Edgar Jain MD [address] [place] [address] PCP - General Internal Medicine 02/10/20 Master Tax Advisor Relationship Specialty Start Date End Date Edgar Jain MD [address] [place] [address] PCP - General Internal Medicine 02/10/20 Ordered [...] Starting on Rina 07/08/22 at 1832, Until 07/09/22 at 0644, Shraddha Mathews: cabinet override, Shraddha [...] BE BASED ON THE PRIMARY CLINICAL RECORDS. [employer] provides no warranty or guarantee of the accuracy or completeness of information in this document.
--- NOTE | 2024-07-18 11:40 | ECG_ITS ---
[facility] Test Date: 2024-07-18 Pat Name: CONRAD GONZALEZ Department: Room: - Gender: Female Surveyor'S Assistant: : 1975 Requested By: Order Number: [id number] Reading MD: LOIDA STANFORD Measurements Intervals [place] Rate: 58 P: 46 SD: 128 QRS: 66 QRSD: 74 T: 69 QT: 406 QTc: 403 Interpretive Statements 1100 Sinus rhythm 9110 normal ECG Compared to ECG 06/17/2024 11:56:49 No significant changes Electronically Signed On 07-18-2024 18:14:28 EST by LOIDA STANFORD
[2024-07-18 12:37] LABS: Basophils Percent Auto 0.8 % (0.2-2.0); Eosinophils Absolute Auto 0.1 10^3/uL (0.0-0.7); Eosinophils Percent Auto 2.3 % (0.9-7.0); Hematocrit 34.5 % (36.0-48.0); Hemoglobin 11.1 g/dL (12.0-16.0); Immature Granulocytes Abs Auto 0.01 10^3/uL (0.00-0.03); Immature Granulocytes Pct Auto 0.3 % (0.0-0.5); Lymphocytes Absolute Auto 1.4 10^3/uL (1.2-3.8); Lymphocytes Percent Auto 34.4 % (20.5-60.0); Mean Corpuscular HGB Conc 32.2 g/dL (29.9-35.2); Mean Corpuscular Hemoglobin 31.4 pg (26.7-34.0); Mean Corpuscular Volume 97.7 fL (81.0-99.0); Mean Platelet Volume 10.6 fL (9.5-13.5); Monocytes Absolute Auto 0.5 10^3/uL (0.3-0.8); Monocytes Percent Auto 11.3 % (1.7-12.0); Neutrophils Percent Auto 50.9 % (43.0-75.0); Platelet Count 201 10^3/uL (150-450); Red Blood Count 3.53 10^6/uL (4.20-5.40); Red Cell Distribution Width 16.3 % (11.0-15.0)
[2024-07-18 12:47] LABS: PO2 ABG 92.5 mmHg (80.0-100.0); pH ABG 7.416 (7.350-7.450)
[2024-07-18 12:48] LABS: Allen Test POSITIVE (POSITIVE); Base Excess ABG 2.4 mmol/L (-2.0-2.0); Carboxyhemoglobin 1.1 % (1.5-4.9); Methemoglobin ABG <1.0 % (1.1-1.9); O2 Mode ROOM AIR; Oxygen Saturation ABG 98.4 %
[2024-07-18 12:49] LABS: Puncture Site R. RAD
[2024-07-18 12:49] LABS: HCG Qualitative NEGATIVE (NEGATIVE); Internal Control Within Normal Limits
[2024-07-18 12:53] LABS: Alanine Aminotransferase 31 U/L (14-59); Albumin Globulin Ratio 1.2; Albumin Level 3.9 g/dL (3.4-5.0); Alkaline Phosphatase 91 U/L (46-116); Anion Gap 8.6; Aspartate Amino Transferase 22 U/L (15-37); BUN Creatinine Ratio 22.2; Bilirubin Total 0.2 mg/dL (0.2-1.0); Calcium 8.7 mg/dL (8.5-10.1); Carbon Dioxide 29.8 mmol/L (21.0-32.0); Chloride 106 mmol/L (98-107); Estimated GFR (African America >60 (>=60 mL/min/1.73m^2); Estimated GFR (Non-African Ame >60 (>=60 mL/min/1.73m^2); Globulin 3.3 g/dL; Glucose 92 mg/dL (74-106); Potassium 4.4 mmol/L (3.5-5.1); Sodium 140 mmol/L (136-145); Total Protein 7.2 g/dL (6.4-8.2)
[2024-07-18 12:55] LABS: Lactate/Lactic Acid 0.7 mmol/L (0.4-2.0)
[2024-07-18 12:58] LABS: Ethanol <3 mg/dL
[2024-07-18 13:04] LABS: Salicylate <2.8 mg/dL (<=19.9)
[2024-07-18 13:06] LABS: Acetaminophen <2.0 ug/mL (10.0-30.0)
[2024-07-18 13:07] LABS: Magnesium 2.2 mg/dL (1.8-2.4); Troponin I High Sensitivity <4.0 pg/mL (4.0-51.3)
[2024-07-18 13:21] VITALS: BP 128/66; PULSE 70; O2SAT 98
--- NOTE | 2024-07-18 15:06 | ED.GENADUL1 ---
HPI HPI - General Adult General Chief complaint: Neuro Symptoms/Deficit Stated complaint: weakness Time Seen by Provider: 07/18/24 11:38 Source: patient Mode of arrival: walk-in History of Present Illness HPI narrative: The patient is being evaluated for bilateral upper and lower extremity fingers and toes numbness and changes in sensation that she noticed over the last few weeks, she mentioned that she got nitric oxide container and she did not breathing that to nitric oxide for the last few weeks she noted that the symptoms started after that in addition to confusion that her noted although she does not have the confusion right now , almost 7 days ago she stopped using the nitric oxide because of the symptoms and there is improvement in her mental status but she did still have the numbness and tingling in her upper and lower extremities Related Data Home Medications ?Medication ?Instructions ?Recorded ?Confirmed clonazepam 1 mg tablet 1 mg PO DAILY 06/17/24 06/17/24 hydroxychloroquine 200 mg tablet 200 mg PO DAILY 06/17/24 06/17/24 hydroxyzine pamoate 50 mg capsule 50 mg PO DAILY 06/17/24 06/17/24 omeprazole 40 mg capsule,delayed 40 mg PO DAILY 06/17/24 06/17/24 release sucralfate 1 gram tablet 1 g PO .with meals 06/17/24 06/17/24 sumatriptan succinate 50 mg tablet 50 mg PO DAILY 06/17/24 06/17/24 Allergies Allergy/AdvReac Type Severity Reaction Status Date / Time amoxicillin AdvReac Unknown Verified 12/26/23 13:41 Penicillins AdvReac Unknown Verified 12/26/23 13:41 Opioid HPI Opioid Management Most Recent Opioid Data: No Data to Display Review of Systems ROS Status of ROS 10 or more systems reviewed and unremarkable except as noted in history and below Exam Narrative Exam Narrative: Nurses notes and vital signs reviewed and patient is not hypoxic. General: Well-appearing and in no apparent distress. Skin: Warm, dry, no pallor noted. No rash. Head: Normocephalic, atraumatic. Neck: Supple, non-tender. Eye: Pupils are equal, round and EOMI. No scleral icterus. Ears, Nose, Mouth, and Throat: TM are clear, no nasal mucosal hypertrophy. Oral mucosa is moist, no posterior oropharynx erythema, uvula is mid-line Cardiovascular: Regular Rate and Rhythm without murmur, gallop or rub. Respiratory: No accessory muscle use or respiratory distress. Lungs are clear to auscultation, no wheezing, rales or rhonchi Chest Wall: no tenderness Back: No midline thoracic or lumbar vertebral tenderness. No CVA tenderness Musculoskeletal: normal ROM, no calf or popliteal tenderness, no lower extremity edema/swelling GI: Abdomen is soft, non-distended. Normal bowel sounds. No masses appreciated. No tenderness to palpation. No rebound, guarding, or rigidity noted. Neurological: A&O x4. No cranial nerve dysfunction observed. Moves all extremities. The patient with decreased sensation in her lower extremities as well as her hands although she did still have normal strength but she mentioned that she does not feel the pain when she grab it Constitutional Vital Signs, click to edit/add: Last Vital Signs Temp 98.6 F 07/18/24 11:29 Pulse 70 07/18/24 13:21 Resp 18 07/18/24 13:21 BP 128/66 07/18/24 13:21 Pulse Ox 98 07/18/24 13:21 Course Vital Signs Vital signs: Vital Signs Temperature 98.6 F 07/18/24 11:29 Pulse Rate 70 07/18/24 11:29 Respiratory Rate 18 07/18/24 11:29 Blood Pressure 120/85 07/18/24 11:29 Pulse Oximetry 100 07/18/24 11:29 Temperature 98.6 F 07/18/24 11:29 Pulse Rate 70 07/18/24 13:21 Respiratory Rate 18 07/18/24 13:21 Blood Pressure 128/66 07/18/24 13:21 Pulse Oximetry 98 07/18/24 13:21 Medical Decision Making [facility] Narrative Medical decision making narrative: The patient had her case discussed with the poison control, with the fact that the patient stopped using the nitric oxide her symptoms should be getting better more as she radiate mentioned that the confusion already resolved The patient CBC chemistry did not show any pathology and the patient also had a methemoglobin and CO level tested and they both within expected normal level the patient Patient to follow-up with her doctor within a few days and to come back to us in case of any new symptoms And she was advised not to get exposed to nitric oxide right now The patient is to follow up with primary care physician in next 2-3 days or to return to the emergency department should any of the signs or symptoms worsen or new symptoms develop. The patient agrees with the following Diagnosis and Treatment plan and the patient will be discharged home. Lab Data Labs: Lab Results 07/18/24 07/18/24 Range/Units 12:19 12:40 WBC 4.0 (4.0-11.0) 10^3/uL RBC 3.53 L (4.20-5.40) 10^6/uL Hgb 11.1 L (12.0-16.0) g/dL Hct 34.5 L (36.0-48.0) % MCV 97.7 (81.0-99.0) fL MCH 31.4 (26.7-34.0) pg MCHC 32.2 (29.9-35.2) g/dL RDW 16.3 H (11.0-15.0) % Plt Count 201 (150-450) 10^3/uL MPV 10.6 (9.5-13.5) fL Neut % (Auto) 50.9 (43.0-75.0) % Lymph % (Auto) 34.4 (20.5-60.0) % [place] % (Auto) 11.3 (1.7-12.0) % Eos % (Auto) 2.3 (0.9-7.0) % Baso % (Auto) 0.8 (0.2-2.0) % Neut # (Auto) 2.0 (1.4-6.5) 10^3/uL Lymph # (Auto) 1.4 (1.2-3.8) 10^3/uL [place] # (Auto) 0.5 (0.3-0.8) 10^3/uL Eos # (Auto) 0.1 (0.0-0.7) 10^3/uL Baso # (Auto) 0.0 (0.0-0.1) 10^3/uL Abs Immat Gran (auto) 0.01 (0.00-0.03) 10^3/uL Imm/Tot Granulo (auto) 0.3 (0.0-0.5) % Puncture Site R. rad ABG pH 7.416 (7.350-7.450) ABG pCO2 42.0 (35.0-45.0) mmHg ABG pO2 92.5 (80.0-100.0) mmHg ABG HCO3 27.0 H (22.0-26.0) mmol/L ABG O2 Saturation 98.4 % ABG Base Excess 2.4 H (-2.0-2.0) mmol/L ABG Methemoglobin <1.0 L (1.1-1.9) % Luke Test Positive (POSITIVE) Carboxyhemoglobin 1.1 L (1.5-4.9) % Sodium 140 (136-145) mmol/L Potassium 4.4 (3.5-5.1) mmol/L Chloride 106 (98-107) mmol/L Carbon Dioxide 29.8 (21.0-32.0) mmol/L Anion Gap 8.6 BUN 22.0 H (7.0-18.0) mg/dL Creatinine 0.99 (0.55-1.02) mg/dL Est GFR ( Amer) >60 (>=60 mL/min/1.73m^2) Est GFR (Non-Af Amer) >60 (>=60 mL/min/1.73m^2) BUN/Creatinine Ratio 22.2 Glucose 92 (74-106) mg/dL Lactate 0.7 (0.4-2.0) mmol/L Calcium 8.7 (8.5-10.1) mg/dL Magnesium 2.2 (1.8-2.4) mg/dL Total Bilirubin 0.2 (0.2-1.0) mg/dL AST 22 (15-37) U/L ALT 31 (14-59) U/L Alkaline Phosphatase 91 (46-116) U/L Troponin I High Sens <4.0 L (4.0-51.3) pg/mL Total Protein 7.2 (6.4-8.2) g/dL Albumin 3.9 (3.4-5.0) g/dL Globulin 3.3 g/dL Albumin/Globulin Ratio 1.2 Serum HCG, Qual Negative (NEGATIVE) Salicylates <2.8 (<=19.9) mg/dL Acetaminophen <2.0 L (10.0-30.0) ug/mL Ethanol Quant <3 mg/dL Discharge Plan Discharge Chief Complaint: Neuro Symptoms/Deficit Clinical Impression: Nitrous oxide user Patient Disposition: Home, Self-Care Time of Disposition Decision: 13:14 Prescriptions / Home Meds: No Action sucralfate 1 gram tablet 1 g PO .with meals clonazepam 1 mg tablet 1 mg PO DAILY sumatriptan succinate 50 mg tablet 50 mg PO DAILY hydroxyzine pamoate 50 mg capsule 50 mg PO DAILY omeprazole 40 mg capsule,delayed release(DR/EC) 40 mg PO DAILY hydroxychloroquine 200 mg tablet 200 mg PO DAILY Print Language: Vincentian Instructions: Peripheral Neuropathy (ED) Referrals: LOUIE DASILVA [Primary Care Provider] - 1 week Discharge Date/Time: 07/18/24 13:22
== END 2024-07-18 13:22 | disposition home or self-care (01) ==
PROVIDERS: Emergency Provider Emergency Medicine; PCP Family Medicine
DX: F18.90 Inhalant use, unspecified, uncomplicated (principal); R20.0 Anesthesia of skin
CPT/HCPCS: 36415; 36600; 80053; 80179; 80307; 80320; 80329; 82375; 82805; 83050; 83605; 83735; 84484; 84703; 85025; 93005; 99284